=== PATIENT | male | born 1960 | race Caucasian/White ===

== ENCOUNTER 2019-05-21 18:11 | Emergency (ER) | payer OTHER ==
--- OUTSIDE RECORDS SUMMARY | 2019-05-21 18:14 | XMS REPORT ---
:1960 [facility] Address [address] [place] [address] Dr. Garcia [address] [place] [address] Care Team Providers Name Role Phone Unavailable Unavailable Unavailable Payers Payer Name Policy Type Policy Number Effective Date Expiration Date Problems This patient has no known problems. Allergies, Adverse Reactions, Alerts Allergy Allergy Status Severity Reaction(s) Onset Inactive Treating Comments Name Type Date Date Clinician dada COSBY Active MO 2019-01 00:00:0 0 Medications This patient has no known medications. Results Test Description Test Time Test Comments Text Results Atomic Results Result Comments GLUBED 2019-04-11 11:11:00 Test Item Value Reference Range Comments GLUBED (test code=GLUBED) 370 MG/DL 74-106 [id number] 05:57:00 Test Item Value Reference Range Comments GLUBED (test code=GLUBED) 289 MG/DL 74-106 COMPREHENSIVE METABOLIC [id number] 05:17:00 Test Item Value Reference Range Comments SODIUM (test code=NA) 131 mmol/L 137-145 POTASSIUM (test code=K) 4.1 mmol/L 3.4-5.0 CHLORIDE (test code=CL) 99 mmol/L 98-107 CARBON DIOXIDE (test 21 mmol/L 22-30 code=CO2) GLUCOSE (test code=GLU) 289 mg/dL 74-106 BLOOD UREA NITROGEN (test 11 mg/dL 9-20 code=BUN) GLOMERULAR FILTRATION RATE 124 >60 The estimated glomerular (test code=GFR) filtration rate is computed usingpatient race, age (>18), sex, and serum creatinine. If anyof the needed data elements are missing the Laboratory cannot compute an estimation of the glomerular filtration rate. CREATININE (test code=CREAT) 0.7 mg/dL 0.7-1.3 TOTAL PROTEIN (test 7.1 g/dL 6.3-8.2 code=PROT) ALBUMIN (test code=ALB) 4.1 g/dL 3.5-5.0 CALCIUM (test code=CA) 9.0 mg/dL 8.4-10.2 BILIRUBIN TOTAL (test 0.7 mg/dL 0.2-1.3 code=BILT) BILIRUBIN CONJUGATED (test 0 mg/dL 0-0.3 ~~~~~~~~~~~~~~~~~~~~~~~~~~~~~ code=BILCON) ~~~~~~~~~~~~~~~~~~~~~~~~~~~~~ ~~CONJUGATED BILIRUBIN IS THE REPLACEMENT ASSAY FOR DIRECTBILIRUBIN.~~~~~~~~~~~~~ ~~~~~~~~~~~~~~~~~~~~~~~~~~~~~ ~~~~~~~~~~~~~~~~~~ BILIRUBIN UNCONJUGATED (test 0.4 mg/dL 0-1.1 code=BILUNC) SGOT/AST (test code=AST) 88 U/L 15-46 SGPT/ALT (test code=ALT) 119 U/L 13-69 ALKALINE PHOSPHATASE (test 70 U/L 38-126 code=ALKP) [id number] 05:17:00 Test Item Value Reference Range Comments MAGNESIUM (test code=MAG) 1.4 mg/dL 1.6-2.3 COMPREHENSIVE METABOLIC [id number] 05:13:00 Test Item Value Reference Range Comments SODIUM (test code=NA) 131 mmol/L 137-145 POTASSIUM (test code=K) 4.1 mmol/L 3.4-5.0 CHLORIDE (test code=CL) 99 mmol/L 98-107 CARBON DIOXIDE (test 21 mmol/L 22-30 code=CO2) GLUCOSE (test code=GLU) 289 mg/dL 74-106 BLOOD UREA NITROGEN (test 11 mg/dL 9-20 code=BUN) GLOMERULAR FILTRATION RATE 124 >60 The estimated glomerular (test code=GFR) filtration rate is computed usingpatient race, age (>18), sex, and serum creatinine. If anyof the needed data elements are missing the Laboratory cannot compute an estimation of the glomerular filtration rate. CREATININE (test code=CREAT) 0.7 mg/dL 0.7-1.3 TOTAL PROTEIN (test 7.1 g/dL 6.3-8.2 code=PROT) ALBUMIN (test code=ALB) 4.1 g/dL 3.5-5.0 CALCIUM (test code=CA) 9.0 mg/dL 8.4-10.2 BILIRUBIN TOTAL (test 0.7 mg/dL 0.2-1.3 code=BILT) BILIRUBIN CONJUGATED (test 0 mg/dL 0-0.3 ~~~~~~~~~~~~~~~~~~~~~~~~~~~~~ code=BILCON) ~~~~~~~~~~~~~~~~~~~~~~~~~~~~~ ~~CONJUGATED BILIRUBIN IS THE REPLACEMENT ASSAY FOR DIRECTBILIRUBIN.~~~~~~~~~~~~~ ~~~~~~~~~~~~~~~~~~~~~~~~~~~~~ ~~~~~~~~~~~~~~~~~~ BILIRUBIN UNCONJUGATED (test 0.4 mg/dL 0-1.1 code=BILUNC) SGOT/AST (test code=AST) 88 U/L 15-46 SGPT/ALT (test code=ALT) 119 U/L 13-69 ALKALINE PHOSPHATASE (test 70 U/L 38-126 code=ALKP) [id number] 05:13:00 Test Item Value Reference Range Comments MAGNESIUM (test code=MAG) mg/dL 1.6-2.3 CBC W/AUTO [id number] 05:02:00 Test Item Value Reference Range Comments WHITE BLOOD CELL (test code=WBC) 5.5 x10 3/uL 5.0-12.0 RED BLOOD CELL (test code=RBC) 4.15 x10 6/uL 4.70-6.10 HEMOGLOBIN (test code=HGB) 12.9 g/dL 14.0-18.0 HEMATOCRIT (test code=HCT) 37.2 % 37.0-49.0 MEAN CELL VOLUME (test code=MCV) 90 fL 80-94 MEAN CELL HGB (test code=MCH) 31.1 pg 27-31 MEAN CELL HGB CONCENTRATION (test code=MCHC) 34.7 g/dL 33-37 RED CELL DISTRIBUTION WIDTH (test code=RDW) 12.9 % 11.5-15.5 PLATELET COUNT (test code=PLT) 192 x10 3/uL 130-400 MEAN PLATELET VOLUME (test code=MPV) 10.4 fL 9.4-16.4 NEUTROPHIL % (test code=NT%) 43.8 % 43-65 IMMATURE GRANULOCYTE % (test code=IG%) 0.4 % 0.0-2.0 LYMPHOCYTE % (test code=LY%) 42.3 % 20.5-45.5 MONOCYTE % (test code=MO%) 6.4 % 5.5-11.7 EOSINOPHIL % (test code=EO%) 6.0 % 0.9-2.9 BASOPHIL % (test code=BA%) 1.1 % 0.2-1.0 NUCLEATED RBC % (test code=NRBC%) 0.0 % 0-1.0 NEUTROPHIL # (test code=NT#) 2.41 x10 3/uL 2.2-4.8 IMMATURE GRANULOCYTE # (test code=IG#) 0.02 x10 3/uL 0-0.03 LYMPHOCYTE # (test code=LY#) 2.32 x10 3/uL 1.3-2.9 MONOCYTE # (test code=MO#) 0.35 x10 3/uL 0.3-0.8 EOSINOPHIL # (test code=EO#) 0.33 x10 3/uL 0.0-0.2 BASOPHIL # (test code=BA#) 0.06 x10 3/uL 0.0-0.1 [id number] 23:26:00 Test Item Value Reference Range Comments GLUBED (test code=GLUBED) 270 MG/DL 74-106 [id number] 18:08:00 Test Item Value Reference Range Comments GLUBED (test code=GLUBED) 391 MG/DL 74-106 [id number] 12:57:00 Test Item Value Reference Range Comments GLUBED (test code=GLUBED) 403 MG/DL Read Back to A VENOUS SPECIMEN SHOULD BE ORDERED FOR GLUCOSE VERIFICATION IF MEDICALLY NECESSARY. [id number] 11:31:00 Test Item Value Reference Range Comments GLUBED (test code=GLUBED) 332 MG/DL [id number] 06:51:00 Test Item Value Reference Range Comments GLUBED (test code=GLUBED) 350 MG/DL LIPID PROFILE (CORONARY RISK)2019-04-10 01:35:00 Test Item Value Reference Range Comments TRIGLYCERIDES (test > 1500 mg/dL TRIGLYCERIDES REFERENCE code=TRIG) RANGE:Normal: <150 mg/dLBorderline High: 150-199 mg/dLHigh: 200-499 mg/dLVery High: >=500 mg/dL CHOLESTEROL (test code=CHOL) 243 mg/dL CHOLESTEROL REFERENCE RANGE:DESIRABLE: < 200 mg/dLBORDERLINE: 200-239 mg/dLHIGH: >=240 mg/dL HDL CHOLESTEROL (test 20 mg/dL 40-59 code=HDL) LIPOPROTEIN LDL (test < 30.00 mg/dL 32-99 code=LDLC) CORONARY RISK FACTOR (test 12.15 code=RISK) CHOL/HDL RISK MALE: 1/2 AVG 3.43 FEMALE: 1/2 AVG 3.27 AVG 4.97 AVG 4.44 2X AVG 9.55 2X AVG 7.05 3X AVG 23.39 3X AVG 11.04~~~~~~~~~~~~~~~~~~~~~~ ~~~~~~~~~~~~~~~~~~~~~~~~~~~ ~~~~~~~~~~~National Cholesterol Education (NCEP) Guidelines:~~~~~~~~~~~~~~~~ ~~~~~~~~~~~~~~~~~~~~~~~~~~~ ~~~~~~~~~~~~~~~~~ HDL Cholesterol<40mg/dL: HDL Cholesterol (Major risk factor for CHD)>60mg/dL: HDL Cholesterol (Negative risk factor for CHD)40-59mg/dL: Borderline Risk LDL Cholesterol<100mg/dL: Desirable LDL-C rxqxeqmbtpnrw103-650qa/dL: Borderline High Risk LDL-C xnuijtqjqhcye281-591fv/dL: High risk LDL-C concentration HDL-LDL Cholesterol is affected by a number of factors suchas smoking, age and sex.~~~~~~~~~~~~~~~~~~~~~~~ ~~~~~~~~~~~~~~~~~~~~~~~~~~~ ~~~~~~~~~~ LIPID PROFILE (CORONARY RISK)2019-04-10 01:22:00 Test Item Value Reference Range Comments TRIGLYCERIDES (test code=TRIG) mg/dL CHOLESTEROL (test code=CHOL) 243 mg/dL CHOLESTEROL REFERENCE RANGE:DESIRABLE: < 200 mg/dLBORDERLINE: 200-239 mg/dLHIGH: >=240 mg/dL HDL CHOLESTEROL (test 20 mg/dL 40-59 code=HDL) LIPOPROTEIN LDL (test mg/dL 32-99 code=LDLC) CORONARY RISK FACTOR (test 12.15 code=RISK) CHOL/HDL RISK MALE: 1/2 AVG 3.43 FEMALE: 1/2 AVG 3.27 AVG 4.97 AVG 4.44 2X AVG 9.55 2X AVG 7.05 3X AVG 23.39 3X AVG 11.04~~~~~~~~~~~~~~~~~~~~~~~~ ~~~~~~~~~~~~~~~~~~~~~~~~~~~~~ ~~~~~~~National Cholesterol Education (NCEP) Guidelines:~~~~~~~~~~~~~~~~~~ ~~~~~~~~~~~~~~~~~~~~~~~~~~~~~ ~~~~~~~~~~~~~ HDL Cholesterol<40mg/dL: HDL Cholesterol (Major risk factor for CHD)>60mg/dL: HDL Cholesterol (Negative risk factor for CHD)40-59mg/dL: Borderline Risk LDL Cholesterol<100mg/dL: Desirable LDL-C yumsgrcgxspwy542-238xb/dL: Borderline High Risk LDL-C nvvdzvkbporov288-335ia/dL: High risk LDL-C concentration HDL-LDL Cholesterol is affected by a number of factors suchas smoking, age and sex.~~~~~~~~~~~~~~~~~~~~~~~~~ ~~~~~~~~~~~~~~~~~~~~~~~~~~~~~ ~~~~~~ HGBA1C - GLYCOSYLATED [id number] 00:29:00 Test Item Value Reference Range Comments GLYCOSYLATED HEMOGLOBIN 10.3 % 0-5.9 Current guidelines recommend a (HA1C) (test code=GLYHGB) treatment goal of <7% fordiabetic patients. A1c may be overestimated in diabeticpatients exhibiting poor control and who are alsoheterozygous or homozygous for HgbS or HgbC. Totalglycohemoglobin is a better indicator of diabetic control inpatients with these hemoglobin variants. - CT HEAD/BRAIN W/O [id number] 23:39:00 FAX: Irais Alcantara [phone] [place]: St: REG Name: CORNEJO,PAUL [facility] [place] : 1960 Age/S: 58/M [address] Unit: [id number] Loc: [place] [address] Phys: Irais River COOK JELLY Acct: [id number] Dis Date: Status: REG ER PHONE #: [phone] Exam Date: 04/09/2019 2328 FAX #: [phone] Reason: headache, htn EXAMS: CPT CODE : [id number] CT HEAD/BRAIN W/O CONT 82860 Examination: Noncontrast head CT Indication: Headache Comparison: None Location: R16 Technique: Multiple CTimages of the brain were obtained from the skull base to the vertex. No intravenous contrast was administered. One or more of the following dose reduction techniques were used: Automated exposure control , adjustment of the mA and/or kV according to patient size, and/or utilization of iterative reconstruction technique. Findings : There is prominence of the ventricles and sulci consistent with mild supratentorial cerebral volume loss. The basilar cisterns are patent. There is no intracranial hemorrhage or mass effect. No intra-axial or extra-axial fluid collections are seen. There isdiffuse periventricular and subcortical white matter hypodensities which are nonspecific, but likely the sequelae of chronic microvascular ischemia. This appearance makes evaluation for underlying acute infarct difficult The visualized paranasal sinuses and mastoid air cells are clear. Impression: 1. No acute intracranial hemorrhage or significant mass effect 2. Additional findings as above at 2339 Reported and signed by: Elaine Hatch MD PAGE 1 Signed Report (CONTINUED) FAX: Irais Alcantara [phone] [place]: St: REG Name: HOPE CORNEJO [facility] : 1960 Age/S: 58/M [address] Unit: [id number] Loc: [place] [address] Phys: Irais River COOK JELLY Acct: [id number] Dis Date: Status: REG ER PHONE #: [phone] Exam Date: 04/09/2019 2328 FAX #: [phone] Reason: headache, htn EXAMS: CPT CODE: [id number] CT HEAD/BRAIN W/O CONT 88041 <Continued> CC: Irais River NP Technologist: Nadeem Theodore Trnscrd Dt/Tm: 04/09/2019 (4035) [email or web address] Orig Print D/T: S: 04/09/2019 (9142 PAGE 2 Signed ReportCOMPREHENSIVE METABOLIC [id number] 23:25:00 Test Item Value Reference Range Comments SODIUM (test code=NA) 129 mmol/L 137-145 POTASSIUM (test code=K) 4.4 mmol/L 3.4-5.0 CHLORIDE (test code=CL) 97 mmol/L 98-107 CARBON DIOXIDE (test 20 mmol/L 22-30 code=CO2) GLUCOSE (test code=GLU) 563 mg/dL 74-106 Critical Value reported toFirst Name:[id number] Last Name:RESULTS READ BACK AND VERIFIEDby C.LAB.MG, on 04/09/19, @ 2324. OK TO REPORT BLOOD UREA NITROGEN (test 16 mg/dL 9-20 code=BUN) GLOMERULAR FILTRATION RATE 92 >60 The estimated glomerular (test code=GFR) filtration rate is computed usingpatient race, age (>18), sex, and serum creatinine. If anyof the needed data elements are missing the Laboratory cannot compute an estimation of the glomerular filtration rate. CREATININE (test code=CREAT) 0.9 mg/dL 0.7-1.3 TOTAL PROTEIN (test 7.8 g/dL 6.3-8.2 code=PROT) ALBUMIN (test code=ALB) 4.4 g/dL 3.5-5.0 CALCIUM (test code=CA) 8.9 mg/dL 8.4-10.2 BILIRUBIN TOTAL (test 0.8 mg/dL 0.2-1.3 code=BILT) BILIRUBIN CONJUGATED (test 0 mg/dL 0-0.3 ~~~~~~~~~~~~~~~~~~~~~~~~~~~~~ code=BILCON) ~~~~~~~~~~~~~~~~~~~~~~~~~~~~~ ~~CONJUGATED BILIRUBIN IS THE REPLACEMENT ASSAY FOR DIRECTBILIRUBIN.~~~~~~~~~~~~~ ~~~~~~~~~~~~~~~~~~~~~~~~~~~~~ ~~~~~~~~~~~~~~~~~~ BILIRUBIN UNCONJUGATED (test 0.4 mg/dL 0-1.1 code=BILUNC) SGOT/AST (test code=AST) 94 U/L 15-46 SGPT/ALT (test code=ALT) 117 U/L 13-69 ALKALINE PHOSPHATASE (test 81 U/L 38-126 code=ALKP) CBC W/AUTO [id number] 23:16:00 Test Item Value Reference Range Comments WHITE BLOOD CELL (test code=WBC) 6.5 x10 3/uL 5.0-12.0 RED BLOOD CELL (test code=RBC) 4.25 x10 6/uL 4.70-6.10 HEMOGLOBIN (test code=HGB) 14.0 g/dL 14.0-18.0 HEMATOCRIT (test code=HCT) 37.4 % 37.0-49.0 MEAN CELL VOLUME (test code=MCV) 88 fL 80-94 MEAN CELL HGB (test code=MCH) 32.9 pg 27-31 MEAN CELL HGB CONCENTRATION (test code=MCHC) 37.4 g/dL 33-37 RED CELL DISTRIBUTION WIDTH (test code=RDW) 12.6 % 11.5-15.5 PLATELET COUNT (test code=PLT) 212 x10 3/uL 130-400 MEAN PLATELET VOLUME (test code=MPV) 10.0 fL 9.4-16.4 NEUTROPHIL % (test code=NT%) 57.5 % 43-65 IMMATURE GRANULOCYTE % (test code=IG%) 0.2 % 0.0-2.0 LYMPHOCYTE % (test code=LY%) 31.2 % 20.5-45.5 MONOCYTE % (test code=MO%) 6.2 % 5.5-11.7 EOSINOPHIL % (test code=EO%) 4.0 % 0.9-2.9 BASOPHIL % (test code=BA%) 0.9 % 0.2-1.0 NUCLEATED RBC % (test code=NRBC%) 0.0 % 0-1.0 NEUTROPHIL # (test code=NT#) 3.72 x10 3/uL 2.2-4.8 IMMATURE GRANULOCYTE # (test code=IG#) 0.01 x10 3/uL 0-0.03 LYMPHOCYTE # (test code=LY#) 2.02 x10 3/uL 1.3-2.9 MONOCYTE # (test code=MO#) 0.40 x10 3/uL 0.3-0.8 EOSINOPHIL # (test code=EO#) 0.26 x10 3/uL 0.0-0.2 BASOPHIL # (test code=BA#) 0.06 x10 3/uL 0.0-0.1 - XR CHEST 1 [id number] 23:12:00 FAX: Irais Alcantara [place]: St: [facility] [place] [facility] 1960 Age/S: 58/M [address] Unit#: [id number] Loc: [place] [address] Phys: Irais River COOK JELLY Acct: [id number] Dis Date: Status: REG ER PHONE #: [phone] Exam Date: 04/09/2019 6991 FAX #: [phone] Reason: elevated bp EXAMS: CPT CODE: [id number] XR CHEST 1 V 83685 Examination: One view chest x-ray Location code: H60 Comparison: None Discussion: Clinical history is remarkable for elevated blood pressure. Heart is normal in size. Lungs are clear of consolidatinginfiltrates. No masses, nodules or effusions identified. Impression: 1. Normal one view chest x- ray. at 2312 * * Reported and signed by: Marc Kebede MD CC: Irais River NP Technologist: LAWSON BORJAS Date/Time/By: 04/09/2019 (329) : By: CarrieVR5 PAGE 1 Signed Report FAX: Irais Alcantara [phone] [place]: St: REG Name: HOPE CORNEJO [facility] : 1960 Age/ S: 58/M [address] Unit #: [id number] Loc: [place] [address] Phys: Irais River NP Acct: [id number] Dis Date: Status: REG ER PHONE #: [phone] Exam Date: 04/09/20192254 FAX #: [phone] Reason: elevatedbp EXAMS: CPT CODE: [id number] XR CHEST 1 V 73640 <Continued> Orig Print D/T: S: (1638)PAGE 2 Signed ReportCBC W/AUTO [id number] 23:07:00 Test Item Value Reference Range Comments WHITE BLOOD CELL (test code=WBC) 6.5 x10 3/uL 5.0-12.0 RED BLOOD CELL (test code=RBC) 4.25 x10 6/uL 4.70-6.10 HEMOGLOBIN (test code=HGB) 14.0 g/dL 14.0-18.0 HEMATOCRIT (test code=HCT) 37.4 % 37.0-49.0 MEAN CELL VOLUME (test code=MCV) 88 fL 80-94 MEAN CELL HGB (test code=MCH) 32.9 pg 27-31 MEAN CELL HGB CONCENTRATION (test code=MCHC) g/dL 33-37 RED CELL DISTRIBUTION WIDTH (test code=RDW) 12.6 % 11.5-15.5 PLATELET COUNT (test code=PLT) 212 x10 3/uL 130-400 MEAN PLATELET VOLUME (test code=MPV) 10.0 fL 9.4-16.4 NEUTROPHIL % (test code=NT%) 57.5 % 43-65 IMMATURE GRANULOCYTE % (test code=IG%) 0.2 % 0.0-2.0 LYMPHOCYTE % (test code=LY%) 31.2 % 20.5-45.5 MONOCYTE % (test code=MO%) 6.2 % 5.5-11.7 EOSINOPHIL % (test code=EO%) 4.0 % 0.9-2.9 BASOPHIL % (test code=BA%) 0.9 % 0.2-1.0 NUCLEATED RBC % (test code=NRBC%) 0.0 % 0-1.0 NEUTROPHIL # (test code=NT#) 3.72 x10 3/uL 2.2-4.8 IMMATURE GRANULOCYTE # (test code=IG#) 0.01 x10 3/uL 0-0.03 LYMPHOCYTE # (test code=LY#) 2.02 x10 3/uL 1.3-2.9 MONOCYTE # (test code=MO#) 0.40 x10 3/uL 0.3-0.8 EOSINOPHIL # (test code=EO#) 0.26 x10 3/uL 0.0-0.2 BASOPHIL # (test code=BA#) 0.06 x10 3/uL 0.0-0.1 TROPONIN I [id number] 23:05:00 Test Item Value Reference Range Comments TROPONIN I RAPID (test 0.00 ng/mL 0.00-0.079 ISTAT TROPONIN I code=TROPIRAP) CRITERIA0.00-0.08 ng/mL - Negative>0.08 ng/mL - Positive The use of serial sampling and testing protocol is arecommended practice.An elevated troponin level alone is often not sufficient fordiagnosis of myocardial infarction. Troponin results obtained by different assays may vary.Evaluation of the extent of myocardial damage based onincrease of troponin would be valid only if similarmethodology is used.
--- NOTE | 2019-05-21 18:32 | EDPHYS ---
Physician Documentation [facility] Name: Gabriel Walker Age: 58 yrs Sex: Male : 1960 Arrival Date: 05/21/2019 Time: 18:13 Bed 6 Private MD: ED Physician Jann De La Garza HPI: 05/20 18:30 This 58 yrs old Male presents to ER via Ambulatory with complaints of kb Toothache. 18:30 The patient presents with pain, redness, swelling. The problem is located in the upper kb left cuspid (#11) and upper left lateral incisor (#10) and upper left central incisor (#9). Onset: The symptoms/episode began/occurred 1 week(s) ago. Duration: The symptoms are continuous. Modifying factors: The symptoms are alleviated by nothing, the symptoms are aggravated by nothing. Associated signs and symptoms: Pertinent positives: pain, redness in area, swelling, Pertinent negatives: fever, inability to eat. Severity of symptoms: At their worst the symptoms were moderate, severe, in the emergency department the symptoms are unchanged. The patient has not experienced similar symptoms in the past. The patient has not recently seen a physician. Pt reports toothache for a week that has been getting worse. States he called around to dentists and the earliest he could get in was 06/10/19. States the pain is keeping him up at night. Historical: - Allergies: 18:19 No Known Allergies; ll1 - PMHx: 18:19 Diabetes - IDDM; Hypertension; ll1 - PSHx: 18:19 laminectomy, spinal fusion; ll1 - Immunization history:: Flu vaccine is not up to date. - Social history:: Smoking status: Patient reports the use of cigarette tobacco products, smokes one pack cigarettes per day. Patient uses street drugs, marijuana, Patient/guardian denies using IV drugs. ROS: 18:29 Constitutional: Negative for fever, chills, and weight loss, Neck: Negative for injury, kb pain, and swelling, Cardiovascular: Negative for chest pain, palpitations, and edema, Respiratory: Negative for shortness of breath, cough, wheezing, and pleuritic chest pain, Abdomen/GI: Negative for abdominal pain, nausea, vomiting, diarrhea, and constipation, Back: Negative for injury and pain, MS/Extremity: Negative for injury and deformity, Skin: Negative for injury, rash, and discoloration, Neuro: Negative for headache, weakness, numbness, tingling, and seizure. 18:29 ENT: Positive for dental pain. Exam: 18:29 Constitutional: This is a well developed, well nourished patient who is awake, alert, kb and in no acute distress. Head/Face: Normocephalic, atraumatic. Neck: Trachea midline, no thyromegaly or masses palpated, and no cervical lymphadenopathy. Supple, full range of motion without nuchal rigidity, or vertebral point tenderness. No Meningismus. Chest/axilla: Normal chest wall appearance and motion. Nontender with no deformity. No lesions are appreciated. Cardiovascular: Regular rate and rhythm with a normal S1 and S2. No gallops, murmurs, or rubs. Normal PMI, no JVD. No pulse deficits. Respiratory: Lungs have equal breath sounds bilaterally, clear to auscultation and percussion. No rales, rhonchi or wheezes noted. No increased work of breathing, no retractions or nasal flaring. Abdomen/GI: Soft, non-tender, with normal bowel sounds. No distension or tympany. No guarding or rebound. No evidence of tenderness throughout. Skin: Warm, dry with normal turgor. Normal color with no rashes, no lesions, and no evidence of cellulitis. MS/ Extremity: Pulses equal, no cyanosis. Neurovascular intact. Full, normal range of motion. Neuro: Awake and alert, GCS 15, oriented to person, place, time, and situation. Cranial nerves II-XII grossly intact. Motor strength 5/5 in all extremities. Sensory grossly intact. Cerebellar exam normal. Normal gait. 18:29 ENT: Dental exam: abscess, that is moderate, specifically in the upper left lateral incisor (#10), dental caries, that is moderate, diffusely, gum swelling, pain, that is moderate, that is severe, specifically in the upper left central incisor (#9), upper left lateral incisor (#10) and upper left cuspid (#11). Vital Signs: 18:16 BP 151 / 97; Pulse 108; Resp 18; Temp 98.9; Pulse Ox 97% ; Pain 10/10; ll1 MDM: 18:21 Patient medically screened. [facility] 18:30 Data reviewed: vital signs, nurses notes. Data interpreted: Pulse oximetry: on room air kb is 97 %. Interpretation: normal. Counseling: I had a detailed discussion with the patient and/or guardian regarding: the historical points, exam findings, and any diagnostic results supporting the discharge/admit diagnosis, the need for outpatient follow up, a dentist, to return to the emergency department if symptoms worsen or persist or if there are any questions or concerns that arise at home. Administered Medications: 18:44 Drug: TORadol 30 mg Route: IM; Site: left deltoid; hb 18:44 Drug: Hearne 10 mg-325 mg 1 tabs Route: PO; hb 18:44 Drug: Clindamycin 300 mg Route: IM; Site: left deltoid; hb 18:44 Drug: Clindamycin 300 mg Route: IM; Site: right deltoid; hb Disposition: 05/21 07:43 Co-signature as Attending Physician, Jann De La Garza MD I agree with the assessment and [facility] plan of care. Disposition: 05/21/19 18:32 Discharged to Home. Impression: Periapical abscess without sinus. - Condition is Stable. - Discharge Instructions: Dental Pain, Pgss-uf-Yfkh, Dental Abscess, Flbf-dk-Udfc. - Prescriptions for Clindamycin HCl 300 mg Oral Capsule - take 1 capsule by ORAL route every 6 hours for 10 days; 40 capsule. Diclofenac Sodium 75 mg Oral Tablet, Delayed Release (E.C.) - take 1 tablet by ORAL route 2 times per day As needed; 30 tablet. - Medication Reconciliation Form, Thank You Letter, Antibiotic Education, Prescription Opioid Use form. - Follow up: Emergency Department; When: As needed; Reason: Worsening of condition. Follow up: Private Physician; When: 2 - 3 days; Reason: Recheck today's complaints, Continuance of care, Re-evaluation by your physician. Signatures: Domonique Singh, YAS-C ELECTRICAL REPAIRER-Jann Ochoa MD MD cha [place], Heather, RN RN hb Lewis, Lynsay, RN RN ll1 Corrections: (The following items were deleted from the chart) 05/20 19:08 18:32 05/21/2019 18:32 Discharged to Home. Impression: Periapical abscess without hb sinus. Condition is Stable. Forms are Medication Reconciliation Form, Thank You Letter, Antibiotic Education, Prescription Opioid Use. Follow up: Emergency Department; When: As needed; Reason: Worsening of condition. Follow up: Private Physician; When: 2 - 3 days; Reason: Recheck today's complaints, Continuance of care, Re-evaluation by your physician. kb
--- NOTE | 2019-05-21 18:32 | ER ---
Nurse's Notes [facility] Name: Gabriel Walker Age: 58 yrs Sex: Male : 1960 Arrival Date: 05/21/2019 Time: 18:13 Bed 6 Private MD: Diagnosis: Periapical abscess without sinus Presentation: 05/20 18:16 Chief complaint: Patient states: States upper jaw/tooth pain for 1 week. No known ll1 fever. No cough/congestion. Coronavirus screen: Proceed with normal triage. Patient denies a cough. Patient denies shortness of breath or difficulty breathing. Patient denies measured and/or subjective temperature greater than 100.4F prior to today's visit. Patient denies travel on a cruise ship or to a country the [facility] currently lists as an affected area. Patient denies contact with known and/or suspected case of COVID-19. Ebola Screen: Patient denies travel to an Ebola-affected area in the 21 days before illness onset. Initial Sepsis Screen: Does the patient meet any 2 criteria? HR > 90 bpm. Risk Assessment: Do you want to hurt yourself or someone else? Patient reports no desire to harm self or others. 18:16 Method Of Arrival: Ambulatory ll1 18:16 Acuity: PARVIN 4 ll1 18:24 Initial Sepsis Screen: Does the patient have a suspected source of infection? No. sv Patient's initial sepsis screen is negative. Onset of symptoms was May 2019. Historical: - Allergies: 18:19 No Known Allergies; ll1 - PMHx: 18:19 Diabetes - IDDM; Hypertension; ll1 - PSHx: 18:19 laminectomy, spinal fusion; ll1 - Immunization history:: Flu vaccine is not up to date. - Social history:: Smoking status: Patient reports the use of cigarette tobacco products, smokes one pack cigarettes per day. Patient uses street drugs, marijuana, Patient/guardian denies using IV drugs. Screenin:23 Abuse screen: Denies threats or abuse. Denies injuries from another. Nutritional sv screening: No deficits noted. Tuberculosis screening: No symptoms or risk factors identified. Fall Risk None identified. Assessment: 18:25 General: Appears in no apparent distress. uncomfortable, well developed, Behavior is sv calm, cooperative, appropriate for age. Pain: Complains of pain in mouth and teeth Pain currently is 10 out of 10 on a pain scale. Pain began a week. Neuro: Level of Consciousness is awake, alert, obeys commands, Oriented to person, place, time, situation, Moves all extremities. Full function Gait is steady. Respiratory: Respiratory effort is even, unlabored, Respiratory pattern is regular, symmetrical. EENT: Reports pain. Derm: Skin is pink, warm \T\ dry. Vital Signs: 18:16 BP 151 / 97; Pulse 108; Resp 18; Temp 98.9; Pulse Ox 97% ; Pain 10/10; ll1 ED Course: 18:13 Patient arrived in ED. mr 18:14 [facility]C [facility] kb 18:14 Jann De La Garza MD is Attending Physician. kb 18:18 Triage completed. ll1 18:20 Arm band placed on Patient placed in an exam room, on a stretcher. ll1 18:23 Zaina Singleton RN is Primary Nurse. sv 18:23 Patient has correct armband on for positive identification. Bed in low position. Call sv light in reach. Door closed. Head of bed elevated. 18:39 No provider procedures requiring assistance completed. Patient did not have IV access sv during this emergency room visit. 19:04 Primary Nurse role handed off by Zaina Singleton RN sv 19:06 Oralia Taylor, SUZANNA is Primary Nurse. hb Administered Medications: 18:44 Drug: TORadol 30 mg Route: IM; Site: left deltoid; hb 18:44 Drug: [place] 10 mg-325 mg 1 tabs Route: PO; hb 18:44 Drug: Clindamycin 300 mg Route: IM; Site: left deltoid; hb 18:44 Drug: Clindamycin 300 mg Route: IM; Site: right deltoid; hb Outcome: 18:32 Discharge ordered by . kb 19:06 Discharged to home ambulatory. hb 19:06 Condition: stable 19:06 Discharge instructions given to patient, Instructed on discharge instructions, follow up and referral plans. medication usage, Demonstrated understanding of instructions, follow-up care, medications, Prescriptions given X 2. 19:08 Patient left the ED. hb Signatures: Domonique Singh FNP-C LEAD HANDLER-Zaina Chambers RN RN Bettie Abel mr Oralia Taylor RN RN hb Lewis, Lynsay, RN RN ll1
[2019-05-21] MEDS ORDERED: HYDROCODONE/APAP 10/325 TAB ONE (18:42)
[2019-05-21] MEDS ORDERED: CLINDAMYCIN IV 150 MG/ML (4 mL) VIAL ONE (18:43)
[2019-05-21] MEDS ORDERED: KETOROLAC 30 MG/ML INJ ONE (18:43)
[2019-05-21 19:15] VITALS: BP 151/97; TEMP 98.9; O2SAT 97
== END 2019-05-21 19:08 | disposition home or self-care (01) ==
LOC: ER 18:11
DX: K04.7 Periapical abscess without sinus (principal); F17.210 Nicotine dependence, cigarettes, uncomplicated; I10 Essential (primary) hypertension
CPT/HCPCS: 96372; 99283; S0077

== ENCOUNTER 2019-05-23 | Emergency (ER) | payer OTHER | END 2019-05-23 23:57 | disposition home or self-care (01) | PROC: 0C9WXZ0 Drainage of Upper Tooth, External Approach, Single (ICD-10-PCS; principal; 2019-05-23) | CPT/HCPCS: 96361; 85025; 36415; 82010; 82947 ×2; 80053; 96375; 96374; 99284; 41800; J7030; J2405 ==

== ENCOUNTER 2019-05-28 06:55 | Emergency (ER) | payer OTHER ==
--- OUTSIDE RECORDS SUMMARY | 2019-05-28 06:59 | XMS REPORT ---
:1960 Author Organization [facility] t Address [address] [place] [address] Care Team Providers Name Role Phone Unavailable Unavailable Unavailable Payers Payer Name Policy Type Policy Number Effective Date Expiration D ate Problems This patient has no known problems. Allergies, Adverse Reactions, Alerts Allergy Allergy Status Severity Reaction(s) Onset Inactive Treating C omments Name Type Date Date Clinician dada COSBY Active MO 2019-01 00:00:0 0 Medications This patient has no known medications. Results Test Description Test Time Test Comments Text Results Atomic Results Result Comments GLUBED 2019-04-11 11:11:00 Test Item Value Reference Range Comments GLUBED (test code = GLUBED) 370 MG/DL 74-106 [id number] 05:57:00 Test Item Value Reference Range Comments GLUBED (test code = GLUBED) 289 MG/DL 74-106 COMPREHENSIVE METABOLIC [id number] 05:17:00 Test Item Value Reference Range Comments SODIUM (test code = NA) 131 mmol/L 137-145 POTASSIUM (test code = K) 4.1 mmol/L 3.4-5.0 CHLORIDE (test code = CL) 99 mmol/L 98-107 CARBON DIOXIDE (test code = 21 mmol/L 22-30 CO2) GLUCOSE (test code = GLU) 289 mg/dL 74-106 BLOOD UREA NITROGEN (test 11 mg/dL 9-20 code = BUN) GLOMERULAR FILTRATION RATE 124 >60 The e stimated glomerular (test code = GFR) filtration rat e is computed usingpatient rac e, age (>18), sex, and serum c reatinine. If anyof the needed data elements are mis sing the Laboratory canno t compute an estimation of th e glomerular filtration rate. CREATININE (test code = 0.7 mg/dL 0.7-1.3 CREAT) TOTAL PROTEIN (test code = 7.1 g/dL 6.3-8.2 PROT) ALBUMIN (test code = ALB) 4.1 g/dL 3.5-5.0 CALCIUM (test code = CA) 9.0 mg/dL 8.4-10.2 BILIRUBIN TOTAL (test code = 0.7 mg/dL 0.2-1.3 BILT) BILIRUBIN CONJUGATED (test 0 mg/dL 0-0.3 ~~~~~ ~~~~~~~~~~~~~~~~~~~~~~~~ code = BILCON) ~~~~~~~~~~~~~~~~ ~~~~~~~~~~~~~ ~~CONJUGATED LETTY IRUBIN IS THE REPLACEMENT ASSA Y FOR DIRECTBILIRUBIN. ~~~~~~~~~~~~~ ~~~~~~~~~~~~~~~~ ~~~~~~~~~~~~~ ~~~~~~~~~~~~~~~~ ~~ BILIRUBIN UNCONJUGATED (test 0.4 mg/dL 0-1.1 code = BILUNC) SGOT/AST (test code = AST) 88 U/L 15-46 SGPT/ALT (test code = ALT) 119 U/L 13-69 ALKALINE PHOSPHATASE (test 70 U/L 38-126 code = ALKP) [id number] 05:17:00 Test Item Value Reference Range Comments MAGNESIUM (test code = MAG) 1.4 mg/dL 1.6-2.3 COMPREHENSIVE METABOLIC [id number] 05:13:00 Test Item Value Reference Range Comments SODIUM (test code = NA) 131 mmol/L 137-145 POTASSIUM (test code = K) 4.1 mmol/L 3.4-5.0 CHLORIDE (test code = CL) 99 mmol/L 98-107 CARBON DIOXIDE (test code = 21 mmol/L 22-30 CO2) GLUCOSE (test code = GLU) 289 mg/dL 74-106 BLOOD UREA NITROGEN (test 11 mg/dL 9-20 code = BUN) GLOMERULAR FILTRATION RATE 124 >60 The e stimated glomerular (test code = GFR) filtration rat e is computed usingpatient rac e, age (>18), sex, and serum c reatinine. If anyof the needed data elements are mis sing the Laboratory canno t compute an estimation of th e glomerular filtration rate. CREATININE (test code = 0.7 mg/dL 0.7-1.3 CREAT) TOTAL PROTEIN (test code = 7.1 g/dL 6.3-8.2 PROT) ALBUMIN (test code = ALB) 4.1 g/dL 3.5-5.0 CALCIUM (test code = CA) 9.0 mg/dL 8.4-10.2 BILIRUBIN TOTAL (test code = 0.7 mg/dL 0.2-1.3 BILT) BILIRUBIN CONJUGATED (test 0 mg/dL 0-0.3 ~~~~~ ~~~~~~~~~~~~~~~~~~~~~~~~ code = BILCON) ~~~~~~~~~~~~~~~~ ~~~~~~~~~~~~~ ~~CONJUGATED LETTY IRUBIN IS THE REPLACEMENT ASSA Y FOR DIRECTBILIRUBIN. ~~~~~~~~~~~~~ ~~~~~~~~~~~~~~~~ ~~~~~~~~~~~~~ ~~~~~~~~~~~~~~~~ ~~ BILIRUBIN UNCONJUGATED (test 0.4 mg/dL 0-1.1 code = BILUNC) SGOT/AST (test code = AST) 88 U/L 15-46 SGPT/ALT (test code = ALT) 119 U/L 13-69 ALKALINE PHOSPHATASE (test 70 U/L 38-126 code = ALKP) [id number] 05:13:00 Test Item Value Reference Range Comments MAGNESIUM (test code = MAG) mg/dL 1.6-2.3 CBC W/AUTO [id number] 05:02:00 Test Item Value Reference Range Comments WHITE BLOOD CELL (test code = WBC) 5.5 x10 3/uL 5.0-12.0 RED BLOOD CELL (test code = RBC) 4.15 x10 6/uL 4.70-6.10 HEMOGLOBIN (test code = HGB) 12.9 g/dL 14.0-18.0 HEMATOCRIT (test code = HCT) 37.2 % 37.0-49.0 MEAN CELL VOLUME (test code = MCV) 90 fL 80-94 MEAN CELL HGB (test code = MCH) 31.1 pg 27-31 MEAN CELL HGB CONCENTRATION (test code = MCHC) 34.7 g/dL 3 3-37 RED CELL DISTRIBUTION WIDTH (test code = RDW) 12.9 % 11 .5-15.5 PLATELET COUNT (test code = PLT) 192 x10 3/uL 130-400 MEAN PLATELET VOLUME (test code = MPV) 10.4 fL 9.4-16.4 NEUTROPHIL % (test code = NT%) 43.8 % 43-65 IMMATURE GRANULOCYTE % (test code = IG%) 0.4 % 0.0-2.0 LYMPHOCYTE % (test code = LY%) 42.3 % 20.5-45.5 MONOCYTE % (test code = MO%) 6.4 % 5.5-11.7 EOSINOPHIL % (test code = EO%) 6.0 % 0.9-2.9 BASOPHIL % (test code = BA%) 1.1 % 0.2-1.0 NUCLEATED RBC % (test code = NRBC%) 0.0 % 0-1.0 NEUTROPHIL # (test code = NT#) 2.41 x10 3/uL 2.2-4.8 IMMATURE GRANULOCYTE # (test code = IG#) 0.02 x10 3/uL 0-0.03 LYMPHOCYTE # (test code = LY#) 2.32 x10 3/uL 1.3-2.9 MONOCYTE # (test code = MO#) 0.35 x10 3/uL 0.3-0.8 EOSINOPHIL # (test code = EO#) 0.33 x10 3/uL 0.0-0.2 BASOPHIL # (test code = BA#) 0.06 x10 3/uL 0.0-0.1 [id number] 23:26:00 Test Item Value Reference Range Comments GLUBED (test code = GLUBED) 270 MG/DL 74-106 [id number] 18:08:00 Test Item Value Reference Range Comments GLUBED (test code = GLUBED) 391 MG/DL 74-106 [id number] 12:57:00 Test Item Value Reference Range Comments GLUBED (test code = GLUBED) 403 MG/DL 74-106 Read Back to A VENOUS SPECIMEN SHOULD BE ORDERED FOR GLUCOSE VERIFICA TION IF MEDICALLY NECESSARY. [id number] 11:31:00 Test Item Value Reference Range Comments GLUBED (test code = GLUBED) 332 MG/DL 74-106 [id number] 06:51:00 Test Item Value Reference Range Comments GLUBED (test code = GLUBED) 350 MG/DL 74-106 LIPID PROFILE (CORONARY RISK)2019-04-10 01:35:00 Test Item Value Reference Range Comments TRIGLYCERIDES (test code = > 1500 mg/dL TRIGL YCERIDES REFERENCE TRIG) RANGE:Normal: <1 50 mg/dLBorderline High: 150-199 mg/dLHig h: 200-499 mg/dLVery High: >=500 mg/dL CHOLESTEROL (test code = 243 mg/dL CHOLEST SARAH REFERENCE CHOL) RANGE:DESIRABLE: < 200 mg/dLBORDERLINE: 200-239 mg/dLHIGH: >=240 mg/dL HDL CHOLESTEROL (test code = 20 mg/dL 40-59 HDL) LIPOPROTEIN LDL (test code = < 30.00 mg/dL 32-99 LDLC) CORONARY RISK FACTOR (test 01.28 code = RISK) CHOL/HDL RISK M SARMAD: 1/2 AVG 3.43 FEM SARMAD: 1/2 AVG 3.27 AVG 4.97 AVG 4.44 2X AVG 9.55 2X A VG 7.05 3X AVG 23.39 3X AVG 11.04~~~~~~~~~~~ ~~~~~~~~~~~ ~~~~~~~~~~~~~~~~ ~~~~~~~~~~~ ~~~~~~~~~~~Natio nal Cholesterol Educ ation (NCEP) Guidelines:~~~~~ ~~~~~~~~~~~ ~~~~~~~~~~~~~~~~ ~~~~~~~~~~~ ~~~~~~~~~~~~~~~~ ~ HDL Cholesterol<40 mg/dL: HDL Cholesterol (Mateus or risk factor for CHD)> 60mg/dL: HDL Cholesterol (Negative risk factor for CHD)40-59mg/dL: Borderline Risk LDL Cholesterol<10 0mg/dL: Desirable LDL-C eytwiganqfxrk318 -159mg/dL: Borderline High Risk LDL-C saxrsmlfzsrdp796 -189mg/dL: High risk LDL-C concentration HD L-LDL Cholesterol is a ffected by a number of fact ors suchas smoking, age and sex.~~~~~~~~~~~~ ~~~~~~~~~~~ ~~~~~~~~~~~~~~~~ ~~~~~~~~~~~ ~~~~~~~~~~ LIPID PROFILE (CORONARY RISK)2019-04-10 01:22:00 Test Item Value Reference Range Comments TRIGLYCERIDES (test code = mg/dL TRIG) CHOLESTEROL (test code = CHOL) 243 mg/dL C HOLESTEROL REFERENCE RANGE:DESIRABLE: < 200 mg/dLBORDERLINE: 200-239 mg/dLHIGH: >=240 mg/dL HDL CHOLESTEROL (test code = 20 mg/dL 40-59 HDL) LIPOPROTEIN LDL (test code = mg/dL 32-99 LDLC) CORONARY RISK FACTOR (test 12.15 code = RISK) CHOL/HDL RISK M SARMAD: 1/2 AVG 3.43 FEMALE: 1/2 AVG 3.27 AVG 4.97 AVG 4.44 2X AVG 9.55 2X AVG 7.05 3X AVG 23.39 3X AVG 11.04~~~~~~~~~~~ ~~~~~~~~~~~~~ ~~~~~~~~~~~~~~~~ ~~~~~~~~~~~~~ ~~~~~~~National Cholesterol Education (NCEP) Guidelines:~~~~~ ~~~~~~~~~~~~~ ~~~~~~~~~~~~~~~~ ~~~~~~~~~~~~~ ~~~~~~~~~~~~~ HDL Cholesterol<40 mg/dL: HDL Cholesterol (Mateus or risk factor for CHD)> 60mg/dL: HDL Cholesterol (Neg ative risk factor for CHD)4 0-59mg/dL: Borderline Risk LDL Cholesterol<10 0mg/dL: Desirable LDL-C tnqqxhqhxxvie264 -159mg/dL: Borderline High Risk LDL-C ktrqjniyglwpr357 -189mg/dL: High risk LDL-C concentration HDL-LDL Choleste rol is affected by a nu mber of factors suchas s moking, age and sex.~~~~~~~~~~~~ ~~~~~~~~~~~~~ ~~~~~~~~~~~~~~~~ ~~~~~~~~~~~~~ ~~~~~~ HGBA1C - GLYCOSYLATED [id number] 00:29:00 Test Item Value Reference Range Comments GLYCOSYLATED HEMOGLOBIN 10.3 % 0-5.9 Current guidelines recommend a (HA1C) (test code = GLYHGB) elizabeth tment goal of <7% fordiabetic patients. A1c m ay be overestimated in diabeticpatie nts exhibiting poor control and who are alsoheterozygous or homozygous for HgbS or HgbC. T otalglycohemoglobin is a better sun cator of diabetic control inpatien ts with these hemoglobin varia nts. - CT HEAD/BRAIN W/O [id number] 23:39:00 FAX: Irais Alcantara [phone] [place]: St: REG Name: HOPE CORNEJO : 1960 Age/S: 58/M [address] Unit: [id number] Loc: [place] [address] Phys: Irais River ZONING ADMINISTRATOR Acct: [id number] Dis Date: Status: REG ER PHONE #: [phone] Exam Date: 04/09/2019 2328 FAX #: [phone] Reason: headache, htn EXAMS: CPT CODE: [id number] CT HEAD/BRAIN W/O CONT 76364 Examination: Noncontrast head CT Indication: Headache Comparison: None Location: R16 Technique: Multiple CTimages of the brain were obtained from the skull base to the vertex. No intravenous contrast was administered. One or more of the following dose reduction techniques were used: Automated exposure control, adjustment of the mA and/or kV according to patient size, and/or utilizat ion of iterative reconstruction technique. Findings: There is prominence of the ventricles and [...] 1 Signed Report (CONTINUED) FAX: Irais Alcantara [phone] [place]: St: REG Name: HOPE CORNEJO : 1960 Age/S: 58/M [address] Unit: [id number] Loc: [place] [address] Phys: Irais River ZONING ADMINISTRATOR Acct: [id number] Dis Date: Status: REG ER PHONE #: [phone] Exam Date: 04/09/20192327 FAX #: [phone] Reas on: headache, htn EXAMS: CPT CODE: [id number] CT HEAD/BRAIN W/O CONT 61810 <Continued> CC: Irais River NP Technologist: Christina Feliciano; Nadeem Kendrick Trnscrd Dt/Tm: 04/09/2019 (0739) [email or web address] Orig Print D/T: S: 04/09/2019 (2340 PAGE 2 Signed ReportCOMPREHENSIVE METABOLIC [id number] 23:25:00 Test Item Value Reference Range Comments SODIUM (test code = NA) 129 mmol/L 137-145 POTASSIUM (test code = K) 4.4 mmol/L 3.4-5.0 CHLORIDE (test code = CL) 97 mmol/L 98-107 CARBON DIOXIDE (test code = 20 mmol/L 22-30 CO2) GLUCOSE (test code = GLU) 563 mg/dL 74-106 Critic al Value reported toFirst Name:DXU 7021 Last Name:RESULTS OTONIEL D BACK AND VERIFIEDby C.LAB .MG, on 04/09/19, @ 2324 . OK TO REPORT BLOOD UREA NITROGEN (test 16 mg/dL 9-20 code = BUN) GLOMERULAR FILTRATION RATE 92 >60 The e stimated glomerular (test code = GFR) filtration rat e is computed usingpatient rac e, age (>18), sex, and serum c reatinine. If anyof the needed data elements are mis sing the Laboratory canno t compute an estimation of th e glomerular filtration rate. CREATININE (test code = 0.9 mg/dL 0.7-1.3 CREAT) TOTAL PROTEIN (test code = 7.8 g/dL 6.3-8.2 PROT) ALBUMIN (test code = ALB) 4.4 g/dL 3.5-5.0 CALCIUM (test code = CA) 8.9 mg/dL 8.4-10.2 BILIRUBIN TOTAL (test code = 0.8 mg/dL 0.2-1.3 BILT) BILIRUBIN CONJUGATED (test 0 mg/dL 0-0.3 ~~~~~ ~~~~~~~~~~~~~~~~~~~~~~~~ code = BILCON) ~~~~~~~~~~~~~~~~ ~~~~~~~~~~~~~ ~~CONJUGATED LETTY IRUBIN IS THE REPLACEMENT ASSA Y FOR DIRECTBILIRUBIN. ~~~~~~~~~~~~~ ~~~~~~~~~~~~~~~~ ~~~~~~~~~~~~~ ~~~~~~~~~~~~~~~~ ~~ BILIRUBIN UNCONJUGATED (test 0.4 mg/dL 0-1.1 code = BILUNC) SGOT/AST (test code = AST) 94 U/L 15-46 SGPT/ALT (test code = ALT) 117 U/L 13-69 ALKALINE PHOSPHATASE (test 81 U/L 38-126 code = ALKP) CBC W/AUTO [id number] 23:16:00 Test Item Value Reference Range Comments WHITE BLOOD CELL (test code = WBC) 6.5 x10 3/uL 5.0-12.0 RED BLOOD CELL (test code = RBC) 4.25 x10 6/uL 4.70-6.10 HEMOGLOBIN (test code = HGB) 14.0 g/dL 14.0-18.0 HEMATOCRIT (test code = HCT) 37.4 % 37.0-49.0 MEAN CELL VOLUME (test code = MCV) 88 fL 80-94 MEAN CELL HGB (test code = MCH) 32.9 pg 27-31 MEAN CELL HGB CONCENTRATION (test code = MCHC) 37.4 g/dL 3 3-37 RED CELL DISTRIBUTION WIDTH (test code = RDW) 12.6 % 11 .5-15.5 PLATELET COUNT (test code = PLT) 212 x10 3/uL 130-400 MEAN PLATELET VOLUME (test code = MPV) 10.0 fL 9.4-16.4 NEUTROPHIL % (test code = NT%) 57.5 % 43-65 IMMATURE GRANULOCYTE % (test code = IG%) 0.2 % 0.0-2.0 LYMPHOCYTE % (test code = LY%) 31.2 % 20.5-45.5 MONOCYTE % (test code = MO%) 6.2 % 5.5-11.7 EOSINOPHIL % (test code = EO%) 4.0 % 0.9-2.9 BASOPHIL % (test code = BA%) 0.9 % 0.2-1.0 NUCLEATED RBC % (test code = NRBC%) 0.0 % 0-1.0 NEUTROPHIL # (test code = NT#) 3.72 x10 3/uL 2.2-4.8 IMMATURE GRANULOCYTE # (test code = IG#) 0.01 x10 3/uL 0-0.03 LYMPHOCYTE # (test code = LY#) 2.02 x10 3/uL 1.3-2.9 MONOCYTE # (test code = MO#) 0.40 x10 3/uL 0.3-0.8 EOSINOPHIL # (test code = EO#) 0.26 x10 3/uL 0.0-0.2 BASOPHIL # (test code = BA#) 0.06 x10 3/uL 0.0-0.1 - XR CHEST 1 [id number] 23:12:00 FAX: Irais Alcantara [phone] [place]: St: REG Name: HOPE CORNEJO [facility] Fam : 1960 Age/S: 58/M [address] Unit#: [id number] Loc: [place] [address] Phys: Irais River ZONING ADMINISTRATOR Acct: [id number] Dis Date: Status: REG ER PHONE #: [phone] Exam Date: 04/09/20192254 FAX #: [phone] Reason: elevated bp EXAMS: CPT CODE: [id number] XR CHEST 1 V 63629 Examination: One view chest x-ray Location code: H60 Comparison: None Discussion: Clinical history is remarkable for elevated blood pressure. Heart is normal in size. Lungs are clear of consolidatinginfiltrates. No masses, nodules or effusions identified. Impression: 1. Normal one view chest x-ray. at 2312 Reported and signed by: Marc Kebede MD CC: Irais River NP Technologist: LAWSON BORJAS Date/Time/By: 04/09/2019 (2311) : By: [email or web address] PAGE 1 Signed Report FAX: Irais Alcantara [phone] [place]: St: REG -- Name: HOPE CORNEJO [facility] : 1960 Age/S: 58/M [address] Unit #: [id number] Loc: [place] [address] Phys: Irais River ZONING ADMINISTRATOR Acct: [id number] Dis Date: Status: REG ER PHONE #: [phone] Exam Date: 04/09/20192254 FAX #: [phone] Reason: elevatedbp EXAMS: CPT CODE: [id number] XR CHEST 1 V 78545 <Continued> Orig Print D/T: S: 04/09/2019 (1493)PAGE 2 Signed Report CBC W/AUTO [id number] 23:07:00 Test Item Value Reference Range Comments WHITE BLOOD CELL (test code = WBC) 6.5 x10 3/uL 5.0-12.0 RED BLOOD CELL (test code = RBC) 4.25 x10 6/uL 4.70-6.10 HEMOGLOBIN (test code = HGB) 14.0 g/dL 14.0-18.0 HEMATOCRIT (test code = HCT) 37.4 % 37.0-49.0 MEAN CELL VOLUME (test code = MCV) 88 fL 80-94 MEAN CELL HGB (test code = MCH) 32.9 pg 27-31 MEAN CELL HGB CONCENTRATION (test code = MCHC) g/dL 3 3-37 RED CELL DISTRIBUTION WIDTH (test code = RDW) 12.6 % 11 .5-15.5 PLATELET COUNT (test code = PLT) 212 x10 3/uL 130-400 MEAN PLATELET VOLUME (test code = MPV) 10.0 fL 9.4-16.4 NEUTROPHIL % (test code = NT%) 57.5 % 43-65 IMMATURE GRANULOCYTE % (test code = IG%) 0.2 % 0.0-2.0 LYMPHOCYTE % (test code = LY%) 31.2 % 20.5-45.5 MONOCYTE % (test code = MO%) 6.2 % 5.5-11.7 EOSINOPHIL % (test code = EO%) 4.0 % 0.9-2.9 BASOPHIL % (test code = BA%) 0.9 % 0.2-1.0 NUCLEATED RBC % (test code = NRBC%) 0.0 % 0-1.0 NEUTROPHIL # (test code = NT#) 3.72 x10 3/uL 2.2-4.8 IMMATURE GRANULOCYTE # (test code = IG#) 0.01 x10 3/uL 0-0.03 LYMPHOCYTE # (test code = LY#) 2.02 x10 3/uL 1.3-2.9 MONOCYTE # (test code = MO#) 0.40 x10 3/uL 0.3-0.8 EOSINOPHIL # (test code = EO#) 0.26 x10 3/uL 0.0-0.2 BASOPHIL # (test code = BA#) 0.06 x10 3/uL 0.0-0.1 TROPONIN I [id number] 23:05:00 Test Item Value Reference Range Comments TROPONIN I RAPID (test 0.00 ng/mL 0.00-0.079 ISTAT TROPONIN I code = TROPIRAP) CRITERIA0.00-0. 08 ng/mL - Negative>0.08 ng /mL - Positive The use of serial sampling and yolande ting protocol is arecommended pra ctice.An elevated troponin level a lone is often not sufficient fordi agnosis of myocardial infar ction. Troponin results obtained by different assays may vary. Evaluation of the extent of myocar dial damage based onincrease of tr oponin would be valid only if si milarmethodology is used.
[2019-05-28] MEDS ORDERED: ONDANSETRON 4 MG/2 ML VIAL ONE (07:36)
[2019-05-28] MEDS ORDERED: METRONIDAZOLE 500mg IVPB 500 MG/100 ML BAG IV ONE (07:36)
[2019-05-28] MEDS ORDERED: NA CHLORIDE 0.9% 1,000 ML ONE (07:36)
[2019-05-28] MEDS ORDERED: CIPROFLOXACIN 400mg IV 400 MG/200 ML BAG IV ONE (07:36)
[2019-05-28] MEDS ORDERED: Ciprofloxacin 200mg IV 200 MG/100 ML IV.SOLN. IV ONE (07:58)
[2019-05-28 08:09] LABS: Protime INR 0.99
[2019-05-28 08:11] LABS: Absolute Lymphocytes (CBC) 1.6 K/uL (0.7-4.9); Basophils % 1.3 % (0-1.3); Hematocrit 36.9 % (39.6-49.0); Lymphocytes % 30.2 % (15.3-44.8); MPV 7.8 fL (7.6-11.3); RBC Red Blood Cell Count 3.92 M/uL (4.33-5.43)
[2019-05-28 08:41] LABS: ALT/SGPT 120 U/L (12-78); AST/SGOT 96 U/L (15-37); Albumin 3.6 g/dL (3.4-5.0); Alkaline Phosphatase 73 U/L (45-117); BUN Blood Urea Nitrogen 29 mg/dL (7-18); Bicarbonate 23 mmol/L (21-32); Bilirubin Direct < 0.1 mg/dL (0-0.2); Bilirubin Total 0.3 mg/dL (0.2-1.0); Lipase 183 U/L (73-393); Magnesium 1.9 mg/dL (1.8-2.4); NT PRO-BNP 75 pg/mL (<125); Potassium 4.6 mmol/L (3.5-5.1); Protein, Total 8.1 g/dL (6.4-8.2); Sodium Level 135 mmol/L (136-145); Troponin (Emerg Dept Use Only) < 0.02 ng/mL (0.0-0.045)
[2019-05-28 08:42] LABS: Glucose Level 439 mg/dL (74-106)
--- NOTE | 2019-05-28 09:21 | RAD REPORT ---
EXAM DESCRIPTION: CT - Abdomen Pelvis W Contrast - 05/28/2019 9:02 am CLINICAL HISTORY: Abdominal pain COMPARISON: none. TECHNIQUE: Computed axial tomography of the abdomen pelvis was obtained. 100 cc [id number] was admin istered intravenously. Oral contrast was not requested which limits evaluation of bowel. All CT scans are performed using dose optimization technique as appropriate and may include automated exposure control or mA/KV adjustment according to patient size. FINDINGS: Hepatomegaly. Fatty infiltration of the liver. Gallstones without gallbladder wall thicken ing Spleen, pancreas, adrenal and kidneys appear unremarkable. There is no evidence of diverticulitis. Small inguinal hernias contain fat. 7 centimeter segment of wall thickening involves the distal sigmoid colon. Spondylosis involves lumba r spine resulting in spinal stenosis IMPRESSION: 7 centimeter segment of wall thickening involves the distal sigmoid colon. Most likely t his represents colitis. A mass can have this appearance but is considered less likely. This should be followed on subsequent examination.
--- NOTE | 2019-05-28 09:26 | EDPHYS ---
Physician Documentation [facility] Name: Gabriel Walker Age: 58 yrs Sex: Male : 1960 Arrival Date: 05/28/2019 Time: 07:00 Bed 14 Private MD: NAHOMI Physician Jann De La Garza HPI: 05/27 08:08 This 58 yrs old Male presents to ER via Ambulatory with complaints of Rectal dee Bleeding. 08:08 The patient presents to the emergency department with bleeding from the rectum/anus, dee that is moderate. Onset: The symptoms/episode began/occurred 2 day(s) ago. Context: the patient has no known special context relating to the rectal area complaint(s). Modifying factors: The symptoms are alleviated by nothing, The symptoms are aggravated by bowel movement. Associate signs and symptoms: The patient has no apparent associated signs or symptoms. The patient has experienced similar episodes in the past, a few times. Historical: - Allergies: 07:25 No Known Allergies; jl7 - Home Meds: 07:25 Glipizide Oral [Active]; Lisinopril Oral [Active]; Nexium Oral [Active]; gabapentin jl7 oral oral [Active]; - PMHx: 07:25 GERD; Hypertension; Diabetes - NIDDM; jl7 - PSHx: 07:25 laminectomy, spinal fusion; jl7 - Immunization history:: Adult Immunizations not up to date. - Social history:: Smoking status: Patient reports the use of cigarette tobacco products, smokes one pack cigarettes per day. - Family history:: not pertinent. ROS: 08:08 Constitutional: Negative for fever, chills, and weight loss, Eyes: Negative for injury, dee pain, redness, and discharge, ENT: Negative for injury, pain, and discharge, Neck: Negative for injury, pain, and swelling, Cardiovascular: Negative for chest pain, palpitations, and edema, Respiratory: Negative for shortness of breath, cough, wheezing, and pleuritic chest pain, Back: Negative for injury and pain, : Negative for injury, bleeding, discharge, and swelling, MS/Extremity: Negative for injury and deformity, Skin: Negative for injury, rash, and discoloration, Neuro: Negative for headache, weakness, numbness, tingling, and seizure, Psych: Negative for depression, anxiety, suicide ideation, homicidal ideation, and hallucinations, Allergy/Immunology: Negative for hives, rash, and allergies, Endocrine: Negative for neck swelling, polydipsia, polyuria, polyphagia, and marked weight changes, Hematologic/Lymphatic: Negative for swollen nodes, abnormal bleeding, and unusual bruising. 08:08 Abdomen/GI: Positive for abdominal pain, rectal bleeding. Exam: 08:08 Constitutional: This is a well developed, well nourished patient who is awake, alert, dee and in no acute distress. Head/Face: Normocephalic, atraumatic. Eyes: Pupils equal round and reactive to light, extra-ocular motions intact. Lids and lashes normal. Conjunctiva and sclera are non-icteric and not injected. Cornea within normal limits. Periorbital areas with no swelling, redness, or edema. ENT: Nares patent. No nasal discharge, no septal abnormalities noted. Tympanic membranes are normal and external auditory canals are clear. Oropharynx with no redness, swelling, or masses, exudates, or evidence of obstruction, uvula midline. Mucous membranes moist. Neck: Trachea midline, no thyromegaly or masses palpated, and no cervical lymphadenopathy. Supple, full range of motion without nuchal rigidity, or vertebral point tenderness. No Meningismus. Chest/axilla: Normal chest wall appearance and motion. Nontender with no deformity. No lesions are appreciated. Cardiovascular: Regular rate and rhythm with a normal S1 and S2. No gallops, murmurs, or rubs. Normal PMI, no JVD. No pulse deficits. Respiratory: Lungs have equal breath sounds bilaterally, clear to auscultation and percussion. No rales, rhonchi or wheezes noted. No increased work of breathing, no retractions or nasal flaring. Back: No spinal tenderness. No costovertebral tenderness. Full range of motion. Male : Normal genitalia with no discharge or lesions. Skin: Warm, dry with normal turgor. Normal color with no rashes, no lesions, and no evidence of cellulitis. MS/ Extremity: Pulses equal, no cyanosis. Neurovascular intact. Full, normal range of motion. Neuro: Awake and alert, GCS 15, oriented to person, place, time, and situation. Cranial nerves II-XII grossly intact. Motor strength 5/5 in all extremities. Sensory grossly intact. Cerebellar exam normal. Normal gait. Psych: Awake, alert, with orientation to person, place and time. Behavior, mood, and affect are within normal limits. 08:08 Abdomen/GI: Inspection: distension, Bowel sounds: normal, Palpation: mild abdominal tenderness, in the right upper quadrant, left upper quadrant and right lower quadrant, Rectal exam: rectal tone normal, Stool: guaiac negative, hemorrhoid(s), external, with inflammation, mass, is not appreciated, swelling, that is mild, tenderness, that is mild, fecal impaction, is not appreciated, Liver: no appreciated palpable abnormalities, Hernia: not appreciated. Vital Signs: 07:19 BP 136 / 86; Pulse 80; Resp 17 S; Temp 98.3(O); Pulse Ox 97% on R/A; Pain 0/10; jl7 08:20 BP 131 / 88; Pulse 77; Resp 17; Temp 98.0(TE); Pulse Ox 97% on R/A; mh5 09:20 BP 148 / 92; Pulse 72; Resp 16 S; Pulse Ox 98% on R/A; jl7 MDM: 07:16 Patient medically screened. dee 08:10 Data reviewed: vital signs, nurses notes, lab test result(s), EKG, radiologic studies, [facility] CT scan. 08:50 Differential diagnosis: hemorrhoids, abscess. dee 09:12 ED course: hx of diverticulitis, multiple episdes, all treated with abxs, mild abd pain dee now, no rebound no guarding.i i arranged close foloow up with dr jolley, pt aware. 05/27 07:20 Order name: Basic Metabolic Panel; Complete Time: 09:[address] [facility] 05/27 07:20 Order name: CBC with Diff; Complete Time: 09:[address] [facility] 05/27 07:20 Order name: LFT's; Complete Time: 09:[address] [facility] 05/27 07:20 Order name: Magnesium; Complete Time: 09:[address] [facility] 05/27 07:20 Order name: NT PRO-BNP; Complete Time: 09:[address] [facility] 05/27 07:20 Order name: PT-INR; Complete Time: 09:[address] [facility] 05/27 07:20 Order name: Troponin (emerg Dept Use Only); Complete Time: 09:[address] [facility] 05/27 07:20 Order name: Lipase; Complete Time: 09:[address] [facility] 05/27 07:20 Order name: CT Abd/Pelvis - PO and IV Contrast; Complete Time: 09:[address] [facility] 05/27 07:20 Order name: Urine Culture [facility] 05/27 09:43 Order name: Urine Dipstick--Ancillary (enter results) 05/27 07:20 Order name: EKG; Complete Time: 07:[address] [facility] 05/27 07:20 Order name: Cardiac monitoring; Complete Time: 07:[address] [facility] 05/27 07:20 Order name: EKG - Nurse/Tech; Complete Time: 07:[address] [facility] 05/27 07:20 Order name: IV Saline Lock; Complete Time: 08:[address] [facility] 05/27 07:20 Order name: Labs collected and sent; Complete Time: 08:[address] [facility] 05/27 07:20 Order name: O2 Per Protocol; Complete Time: 08:[address] [facility] 05/27 07:20 Order name: O2 Sat Monitoring; Complete Time: 08:[address] [facility] 05/27 07:20 Order name: Urine Dipstick-Ancillary (obtain specimen); Complete Time: 09:[address] [facility] 05/27 09:18 Order name: Blood Glucose Level; Complete Time: 09:[address] [facility] Administered Medications: 07:53 Drug: Cipro 400 mg Volume: 200 ml; Route: IVPB; Infused Over: 60 mins; Site: [address]; 08:53 Follow up: Response: No adverse reaction; IV Status: Completed infusion 07:55 Drug: Flagyl 500 mg Volume: 100 ml; Route: IVPB; Rate: 200 ml/hr; Infused Over: 30 jl7 mins; Site: left antecubital; 08:25 Follow up: Response: No adverse reaction; IV Status: Completed infusion 07:57 Drug: NS 0.9% 1000 ml Route: IV; Rate: 1 bolus; Site: left antecubital; jl7 09:00 Follow up: Response: No adverse reaction; IV Status: Completed infusion; IV Intake: jl7 1000ml 07:58 Drug: Zofran (Ondansetron) 4 mg Route: IVP; Site: left antecubital; [facility] 08:15 Follow up: Response: No adverse reaction; Nausea is decreased [facility] 09:23 Drug: Insulin Regular Human 10 units {Co-Signature: aa5 (Meme Mon RN).} Route: jl7 IVP; Site: left antecubital; 09:52 Follow up: Response: Blood sugar is lowered 09:37 Drug: Mucomyst - Acetylcysteine 600 mg Route: PO; 09:51 Follow up: Response: No adverse reaction Point of Care Testing: Guaiac: 09:26 Stool Guaiac: Negative; Stool Hemoccult Control: Pass; dee Disposition: 05/28/19 09:25 Discharged to Home. Impression: Abdominal tenderness, Diverticular disease of intestine - 7 cm segment of sigmoid colon, colitis, Gastrointestinal hemorrhage, unspecified - lower, Type 2 diabetes mellitus - poorly controlled, Tobacco use. - Condition is Stable. - Discharge Instructions: Abdominal Pain, Adult, Type 2 Diabetes Mellitus, Diagnosis, Adult, Gastrointestinal Bleeding, Rectal Bleeding, Abdominal Pain, Adult, Njbu-if-Haap, Type 2 Diabetes Mellitus, Diagnosis, Adult, Gcrn-pq-Krev, Rectal Bleeding, Flyq-in-Rwwb, Type 2 Diabetes Mellitus, Self Care, Adult, Type 2 Diabetes Mellitus, Self Care, Adult, Ibsx-ib-Cynn. - Prescriptions for Bentyl 20 mg Oral Tablet - take 1 tablet by ORAL route every 6 hours As needed; 20 tablet. Flagyl 500 mg Oral Tablet - take 1 tablet by ORAL route every 8 hours for 10 days; 30 tablet. Zofran 4 mg Oral Tablet - take 1 tablet by ORAL route every 12 hours As needed; 20 tablet. Cipro 500 mg Oral Tablet - take 1 tablet by ORAL route every 12 hours for 10 days; 20 tablet. Colace 100 mg Oral Tablet - take 1 tablet by ORAL route every 12 hours; 14 tablet. - Medication Reconciliation Form, Thank You Letter, Antibiotic Education, Prescription Opioid Use form. - Follow up: Private Physician; When: 2 - 3 days; Reason: Recheck today's complaints, Continuance of care, Re-evaluation by your physician. Follow up: Yusuf Jolley; When: 2 - 3 days; Reason: Recheck today's complaints, Re-evaluation by your physician. - Problem is new. - Symptoms have improved. Signatures: Dispatcher [employer] Jann Diaz MD MD cha Leal, Jahala RN RN jl7 Meme Mon RN aa5 Corrections: (The following items were deleted from the chart) 08:14 07:21 Chest Single View+[id number] ordered. EDND EDMS 09:26 09:17 Abdomen/GI: dee [facility] 09:55 09:25 05/28/2019 09:25 Discharged to Home. Impression: Abdominal tenderness; jl7 Diverticular disease of intestine - 7 cm segment of sigmoid colon, colitis; Gastrointestinal hemorrhage, unspecified - lower; Type 2 diabetes mellitus - poorly controlled; Tobacco use. Condition is Stable. Discharge Instructions: Abdominal Pain, Adult, Gastrointestinal Bleeding, Rectal Bleeding, Abdominal Pain, Adult, Ofql-bg-Pubc, Rectal Bleeding, Vwxi-nv-Auyc, Type 2 Diabetes Mellitus, Diagnosis, Adult, Type 2 Diabetes Mellitus, Diagnosis, Adult, Gthj-im-Ezlo, Type 2 Diabetes Mellitus, Self Care, Adult, Type 2 Diabetes Mellitus, Self Care, Adult, Dmsf-ha-Solk. Prescriptions for Bentyl 20 mg Oral Tablet - take 1 tablet by ORAL route every 6 hours As needed; 20 tablet, Flagyl 500 mg Oral Tablet - take 1 tablet by ORAL route every 8 hours for 10 days; 30 tablet, Zofran 4 mg Oral Tablet - take 1 tablet by ORAL route every 12 hours As needed; 20 tablet, Cipro 500 mg Oral Tablet - take 1 tablet by ORAL route every 12 hours for 10 days; 20 tablet, Colace 100 mg Oral Tablet - take 1 tablet by ORAL route every 12 hours; 14 tablet. and Forms are Medication Reconciliation Form, Thank You Letter, Antibiotic Education, Prescription Opioid Use. Follow up: Private Physician; When: 2 - 3 days; Reason: Recheck today's complaints, Continuance of care, Re-evaluation by your physician. Follow up: Yusuf Jolley; When: 2 - 3 days; Reason: Recheck today's complaints, Re-evaluation by your physician. Problem is new. Symptoms have improved. dee
--- NOTE | 2019-05-28 09:26 | ER ---
Nurse's Notes [facility] Name: Gabriel Walker Age: 58 yrs Sex: Male : 1960 Arrival Date: 05/28/2019 Time: 07:00 Bed 14 Private MD: Diagnosis: Abdominal tenderness;Diverticular disease of intestine-7 cm segment of sigmoid colon, colitis;Gastrointestinal hemorrhage, unspecified-lower;Type 2 diabetes mellitus-poorly controlled;Tobacco use Presentation: 05/27 07:19 Chief complaint: Patient states: Woke last night and had myah blood pouring out from jl7 anus. Denies diarrhea, denies abdominal pain, reports normal bowel habits. Coronavirus screen: Proceed with normal triage. Patient denies a cough. Patient denies shortness of breath or difficulty breathing. Patient denies measured and/or subjective temperature greater than 100.4F prior to today's visit. Patient denies travel on a cruise ship or to a country the [facility] currently lists as an affected area. Patient denies contact with known and/or suspected case of COVID-19. Ebola Screen: No symptoms or risks identified at this time. Initial Sepsis Screen: Does the patient meet any 2 criteria? No. Patient's initial sepsis screen is negative. Does the patient have a suspected source of infection? No. Patient's initial sepsis screen is negative. Risk Assessment: Do you want to hurt yourself or someone else? Patient reports no desire to harm self or others. Onset of symptoms was May 28, 2019. 07:19 Method Of Arrival: Ambulatory [facility] 07:19 Acuity: PARVIN 3 jl7 Triage Assessment: 07:25 General: Appears in no apparent distress. uncomfortable, Behavior is calm, cooperative, jl7 appropriate for age, anxious. Pain: Denies pain. Neuro: Level of Consciousness is awake, alert, obeys commands, Oriented to person, place, time, situation. Cardiovascular: Patient's skin is warm and dry. Respiratory: Airway is patent Respiratory effort is even, unlabored, Respiratory pattern is regular, symmetrical. GI: Reports rectal bleeding, hemorrhoids, nausea, Patient currently denies constipation, diarrhea. : No signs and/or symptoms were reported regarding the genitourinary system. Historical: - Allergies: 07:25 No Known Allergies; jl7 - Home Meds: 07:25 Glipizide Oral [Active]; Lisinopril Oral [Active]; Nexium Oral [Active]; gabapentin jl7 oral oral [Active]; - PMHx: 07:25 GERD; Hypertension; Diabetes - NIDDM; jl7 - PSHx: 07:25 laminectomy, spinal fusion; jl7 - Immunization history:: Adult Immunizations not up to date. - Social history:: Smoking status: Patient reports the use of cigarette tobacco products, smokes one pack cigarettes per day. - Family history:: not pertinent. Screenin:45 Abuse screen: Denies threats or abuse. Denies injuries from another. Nutritional jl7 screening: No deficits noted. Tuberculosis screening: No symptoms or risk factors identified. Fall Risk IV access (20 points). Total Miller Fall Scale indicates No Risk (0-24 pts). Assessment: 07:35 Reassessment: Pt finished drinking oral contrast, CT notified. jl7 08:30 Reassessment: Patient appears in no apparent distress at this time. No changes from jl7 previously documented assessment. Patient and/or family updated on plan of care and expected duration. Pain level reassessed. Patient is alert, oriented x 3, equal unlabored respirations, skin warm/dry/pink. Vital Signs: 07:19 BP 136 / 86; Pulse 80; Resp 17 S; Temp 98.3(O); Pulse Ox 97% on R/A; Pain 0/10; jl7 08:20 BP 131 / 88; Pulse 77; Resp 17; Temp 98.0(TE); Pulse Ox 97% on R/A; mh5 09:20 BP 148 / 92; Pulse 72; Resp 16 S; Pulse Ox 98% on R/A; jl7 ED Course: 07:00 Patient arrived in ED. ds1 07:16 Jann De La Garza MD is Attending Physician. dee 07:18 Davis Bailey RN is Primary Nurse. jl7 07:22 Triage completed. jl7 07:25 Arm band placed on right wrist. jl7 07:45 Initial lab(s) drawn, by nm, sent to lab. EKG done. Inserted saline lock: 20 gauge in jl7 left antecubital area, using aseptic technique. Blood collected. 07:54 Patient has correct armband on for positive identification. Placed in gown. Bed in low mh5 position. Call light in reach. Side rails up X2. Warm blanket given. mexican food maker on. Pulse ox on. NIBP on. 09:02 CT Abd/Pelvis - PO and IV Contrast In Process Unspecified. EDMS 09:24 Yusuf Guevara MD is Referral Physician. dee 09:45 IV discontinued, Pressure dressing applied. 5 09:54 No provider procedures requiring assistance completed. jl7 09:55 IV discontinued, intact, bleeding controlled, No redness/swelling at site. Pressure jl7 dressing applied. Administered Medications: 07:53 Drug: Cipro 400 mg Volume: 200 ml; Route: IVPB; Infused Over: 60 mins; Site: left jl7 antecubital; 08:53 Follow up: Response: No adverse reaction; IV Status: Completed infusion jl7 07:55 Drug: Flagyl 500 mg Volume: 100 ml; Route: IVPB; Rate: 200 ml/hr; Infused Over: 30 jl7 mins; Site: left antecubital; 08:25 Follow up: Response: No adverse reaction; IV Status: Completed infusion jl7 07:57 Drug: NS 0.9% 1000 ml Route: IV; Rate: 1 bolus; Site: left antecubital; jl7 09:00 Follow up: Response: No adverse reaction; IV Status: Completed infusion; IV Intake: jl7 1000ml 07:58 Drug: Zofran (Ondansetron) 4 mg Route: IVP; Site: left antecubital; jl7 08:15 Follow up: Response: No adverse reaction; Nausea is decreased jl7 09:23 Drug: Insulin Regular Human 10 units {Co-Signature: aa5 (Meme Mon RN).} Route: jl7 IVP; Site: left antecubital; 09:52 Follow up: Response: Blood sugar is lowered jl7 09:37 Drug: Mucomyst - Acetylcysteine 600 mg Route: PO; jl7 09:51 Follow up: Response: No adverse reaction jl7 Point of Care Testing: Guaiac: 09:26 Stool Guaiac: Negative; Stool Hemoccult Control: Pass; dee Intake: 09:00 IV: 1000ml; Total: 1000ml. jl7 Outcome: 09:25 Discharge ordered by . [facility] 09:54 Discharged to home ambulatory. jl7 09:54 Condition: stable 09:54 Discharge instructions given to patient, Instructed on discharge instructions, follow up and referral plans. medication usage, Demonstrated understanding of instructions, follow-up care, medications, Prescriptions given X 5 09:55 Patient left the ED. jl7 Signatures: Dispatcher [employer] Jann Diaz MD MD cha Sanford, Demi ds1 Martinez, Maria Davis Simons, SUZANNA RN jl7 Meme Mon RN aa5
[2019-05-28] MEDS ORDERED: INSULIN -REGULAR HUMAN 50 UNIT/0.5 ML ML ONE (09:27)
[2019-05-28] MEDS ORDERED: ACETYLCYST 6,000 MG/30 ML VIAL ONE (09:42)
[2019-05-28 09:54] LABS: Urine Blood NEGATIVE (NEG); Urine Glucose 2+ (NEG); Urine Protein NEGATIVE (NEG); Urine pH 5.5 (5.0-7.0)
[2019-05-28 10:06] VITALS: TEMP 98
[2019-05-28 10:07] VITALS: BP 148/92; O2SAT 98
--- NOTE | 2019-05-28 16:17 | EKG ---
Test Date: 2019-05-28 Test Time: 07:47:31 Certified Medical Coding Specialist: RADHA MEASUREMENT RESULTS: Intervals: Rate: 79 WA: 166 QRSD: 122 QT: 368 QTc: 421 [place]: P: 58 WA: 166 QRS: -12 T: 21 INTERPRETIVE STATEMENTS: Normal sinus rhythm Septal infarct, age undetermined Abnormal ECG No previous ECG available for comparison Electronically Signed On 05-28-19 16:16:12 CDT by [place]
== END 2019-05-28 09:55 | disposition home or self-care (01) ==
LOC: ER 06:55
DX: K57.30 Diverticulosis of large intestine without perforation or abscess without bleeding (principal); K52.9 Noninfective gastroenteritis and colitis, unspecified; R10.819 Abdominal tenderness, unspecified site; E11.9 Type 2 diabetes mellitus without complications; I10 Essential (primary) hypertension; K21.9 Gastro-esophageal reflux disease without esophagitis; Z72.0 Tobacco use
CPT/HCPCS: 93005; 87088; 85025; 87086; 80048; 36415; 83735; 85610; 82947; 80076; 81003; 84484; 83690; 83880; 74177; Q9967; J0744 ×2; J7030; J2405; 96365; 96375; 99284

== ENCOUNTER 2019-11-26 09:59 | Emergency (ER) | payer OTHER, SELFPAY ==
[2019-11-26 10:39] LABS: Absolute Lymphocytes (CBC) 1.8 K/uL (0.7-4.9); Basophils % 0.4 % (0-1.3); Hematocrit 37.3 % (39.6-49.0); Lymphocytes % 31.3 % (15.3-44.8); MPV 8.2 fL (7.6-11.3); RBC Red Blood Cell Count 4.03 M/uL (4.33-5.43)
[2019-11-26 10:55] LABS: Albumin 3.7 g/dL (3.4-5.0); Bilirubin Direct 0.1 mg/dL (0-0.2); Bilirubin Total 0.7 mg/dL (0.2-1.0)
[2019-11-26 10:56] LABS: Potassium 4.3 mmol/L (3.5-5.1)
[2019-11-26] MEDS ORDERED: MORPHINE 4 MG/ML SYR ONE (10:59)
[2019-11-26] MEDS ORDERED: ONDANSETRON 4 MG/2 ML VIAL ONE (10:59)
--- OUTSIDE RECORDS SUMMARY | 2019-11-26 11:14 | XMS REPORT | Continuity of Care Document ---
:1960 Author Organization [email or web address] Care Team Providers Name Role Phone [email or web address] Unavailable Un available Problems Problem Status Onset Classification Date Comments Sourc e Date Reported Asthma Active Problem 03/03/2019 [facility] (disorder) Group Simple Active Problem 03/03/2019 [facility] l obesity Group (disorder) Medications Medication Details Route Status Patient Ordering Order Source Instructions Provider Date lisinopril 40 40 mg = 1 Active MH mg oral tablet tab, PO, 020 Medical Daily, # 90 Group tab, 0 Refill(s), Pharmacy: [facility] Fluticasone 1 spray, Active MH propionate 0.05 NASAL, BID, 020 Medi claudio MG/ACTUAT # 16 gm, 0 Group Metered Dose Refill(s), Nasal [place] Pharmacy: [facility] Ventolin HFA 90 2 puff, Active MH mcg/inh INHALER, 020 Medical inhalation QID, PRN Group aerosol with wheezing, adapter coughing, or shortness of breath, # 1 ea, 0 Refill(s), Pharmacy: [facility] Esomeprazole 40 40 mg = 1 Active MH MG Enteric cap, PO, 020 Medical Coated Capsule Daily, # 90 Group tab, 1 Refill(s), Pharmacy: [facility] Ventolin HFA 90 INHALER, PRN Inactive MH mcg/inh wheezing, 020 Medical inhalation coughing, or Group aerosol with shortness of adapter breath Esomeprazole 40 40 mg = 1 Inactive MH MG Enteric cap, PO, 020 Medical Coated Capsule Daily Group Allergies, Adverse Reactions, Alerts Substance Category Reaction Severity Reaction Status Date Comments S ource type Reported codeine Assertion Drug Active MH allergy Medical Group Immunizations No Data Provided for This Section Results No Data Provided for This Section Pathology Reports No Data Provided for This Section Diagnostic Reports No Data Provided for This Section Consultation Notes No Data Provided for This Section Discharge Summaries No Data Provided for This Section History and Physicals No Data Provided for This Section Vital Signs Vital Sign Value Date Comments Source Systolic (mm Hg) 161 02/28/2019 Medical Group Diastolic (mm Hg) 105 02/28/2019 Medical Group Heart Rate 82 02/28/2019 Medical Grou p Temperature Oral (F) 98.1 F 02/28/2019 [facility]i [facility] Group Height 185.42 cm 02/28/2019 Medical Gr[facility] p Weight 112.727 02/28/2019 [facility] p BMI Calculated 32.79 02/28/2019 Medical Gr oup Encounters Location Location Encounter Encounter Reason Attending ADM AL Stat us Source Details Type Number For Provider Date Date Visit Outpatient [id number] [place] [facility] Outpatient [id number] [place] 02/28 03/01 [facility] Procedures No Data Provided for This Section Assessment and Plan No Data Provided for This Section Plan of Care No Data Provided for This Section Social History Social History Date Source Social History TypeResponse 02/28/2019 [facility] Alcohol Current, Type Liquor. Frequency: 1-2 times per month. Employment/School Status: Unemployed. Substance Abuse Use: Current. Type: Marijuana. Recreational Drug Route: In haled. Smoking Status Current every day smoker; Type: Cigarett es; Lives with someone who smokes; Cigarette Smoking Last 365 Days Yes; Reg Smoking Cessation Counseling No entered on: 02/28/19 Family History No Data Provided for This Section Advance Directives No Data Provided for This Section Functional Status No Data Provided for This Section
--- OUTSIDE RECORDS SUMMARY | 2019-11-26 11:15 | XMS REPORT | Continuity of Care Document ---
:[address] [facility] t Address [address] [place] [address] Care Team Providers Name Role Phone Lori Attending Clinician Payers Payer Name Policy Type Policy Number Effective Date Expiration Date S ource Problems Condition Condition Condition Status Onset Resolution Last Treating Co mments Source Name Details Category Date Date Treatment Clinician Date Asthma Problem Active 2019-03-03 Memor ia (disorder) 01:36:30 l Asthma [place] (disorder) Active Problem 03/03/2019 [facility] Simple Problem Active 2019-03-03 Memor ia obesity 01:36:30 l (disorder) Simple Herm vazquez obesity (disorder) Active Problem 03/03/2019 [facility] Allergies, Adverse Reactions, Alerts Allergy Allergy Status Severity Reaction(s) Onset Inactive Treating Comm ents Source Name Type Date Date Clinician codeine DA Active [place] 2018-02 [facility] 04-11 [facility] codeine codeine Active Thom Armstrong Social History Social Habit Start Date Stop Date Quantity Comments Source Social History 2019-02-28 2019-02-28 Leisa vivar 16:57:58 16:57:58 Medications Ordered Filled Start Stop Current Ordering Indication Dosage Frequency Signature Comments Components Source Medication Medication Date Date Medication? Clinician (SIG) Name Name lisinopril Yes 40 mg = 1 Me moria 40 mg oral 1-15 tab, PO, l tablet 17:19: Daily, # Nathaniel 00 90 tab, 0 Refill(s), Pharmacy: [facility] Fluticasone 0 Yes 1 spray, Me moria propionate 1-15 NASAL, l 0.05 17:19: BID, # 16 [place] MG/ACTUAT 00 gm, 0 Metered Refill(s), Dose Nasal Pharmacy: [place] Ventolin Yes 2 puff, Memori a HFA 90 1-15 INHALER, l mcg/inh 17:18: QID, PRN Ronald n inhalation 00 wheezing, aerosol coughing, with or adapter shortness of breath, # 1 ea, 0 Refill(s), Pharmacy: [facility] 297 Esomeprazol Yes 40 mg = 1 M emoria e 40 MG 1-15 cap, PO, l Enteric 17:18: Daily, # Ronald n Coated 00 90 tab, 1 Capsule Refill(s), Pharmacy: [facility] Ventolin No INHALER, Memor ia HFA 90 1-15 PRN l mcg/inh 16:58: wheezing, Rosa Elena nn inhalation 00 coughing, aerosol or with shortness adapter of breath Esomeprazol 0 No 40 mg = 1 M emoria e 40 MG 1-15 cap, PO, l Enteric 16:58: Daily Nathaniel Coated 00 Capsule Vital Signs Vital Name Observation Time Observation Value Comments Source Systolic (mm Hg) 2019-02-28 16:53:00 Qamar Armstrong Diastolic (mm Hg) 2019-02-28 16:53:00 Mem oriюлия Armstrong Heart Rate 2019-02-28 16:53:00 [facility] Temperature Oral (F) 2019-02-28 16:53:00 98.1 F [facility] Height 2019-02-28 16:53:00 185.42 cm [facility] Weight 2019-02-28 16:53:00 [facility] BMI Calculated 2019-02-28 16:53:00 Marina Sears Procedures This patient has no known procedures. Encounters Start End Encounter Admission Attending Care Care Encounter Source Date/Time Date/Time Type Type Clinicians Facility Department ID 2019-02-28 2019-02-28 Outpatient EPHRAIM Sandoval [facility] [id number] 11:00:00 23:59:59 Brenton 00 Results Test Description Test Time Test Comments Results Result Comments Source GLUBED 2019-04-11 11:11:00 Test Item Value Reference Range Interpretation Comme nts GLUBED (test code = GLUBED) 370 MG/DL 74-106 H [id number] 05:57:00 Test Item Value Reference Range Interpretation Comments GLUBED (test code = GLUBED) 289 MG/DL 74-106 H COMPREHENSIVE METABOLIC [id number] 05:17:00 Test Item Value Reference Range Interpretation Comments SODIUM (test code = 131 mmol/L 137-145 L NA) POTASSIUM (test code = 4.1 mmol/L 3.4-5.0 N K) CHLORIDE (test code = 99 mmol/L 98-107 N CL) CARBON DIOXIDE (test 21 mmol/L 22-30 L code = CO2) GLUCOSE (test code = 289 mg/dL 74-106 H GLU) BLOOD UREA NITROGEN 11 mg/dL 9-20 N (test code = BUN) GLOMERULAR FILTRATION 124 >60 The es timated RATE (test code = GFR) glome rular filtration rate is compute d usingpatient ra ce, age (>18), sex, and serum creatinin e. If anyof the neede d data elements are mi ssing the Laboratory cannot compute an jeni mation of the glomerul ar filtration rate . CREATININE (test code 0.7 mg/dL 0.7-1.3 N = CREAT) TOTAL PROTEIN (test 7.1 g/dL 6.3-8.2 N code = PROT) ALBUMIN (test code = 4.1 g/dL 3.5-5.0 N ALB) CALCIUM (test code = 9.0 mg/dL 8.4-10.2 N CA) BILIRUBIN TOTAL (test 0.7 mg/dL 0.2-1.3 N code = BILT) BILIRUBIN CONJUGATED 0 mg/dL 0-0.3 N ~~~~~~~ ~~~~~~~~~~~~~~ (test code = BILCON) ~~~~~~~ ~~~~~~~~~~~~~~ ~~~~~~~~~~~~~~~ ~~~CON JUGATED BILIRUB IN IS THE REPLACEMENT ASSAY FOR DIRECTBILIRUBIN .~~~~~ ~~~~~~~~~~~~~~~ ~~~~~~ ~~~~~~~~~~~~~~~ ~~~~~~ ~~~~~~~~~~~~~ BILIRUBIN UNCONJUGATED 0.4 mg/dL 0-1.1 N (test code = BILUNC) SGOT/AST (test code = 88 U/L 15-46 H AST) SGPT/ALT (test code = 119 U/L 13-69 H ALT) ALKALINE PHOSPHATASE 70 U/L 38-126 N (test code = ALKP) [id number] 05:17:00 Test Item Value Reference Range Interpretation Comments MAGNESIUM (test code = MAG) 1.4 mg/dL 1.6-2.3 L COMPREHENSIVE METABOLIC [id number] 05:13:00 Test Item Value Reference Range Interpretation Comments SODIUM (test code = 131 mmol/L 137-145 L NA) POTASSIUM (test code = 4.1 mmol/L 3.4-5.0 N K) CHLORIDE (test code = 99 mmol/L 98-107 N CL) CARBON DIOXIDE (test 21 mmol/L 22-30 L code = CO2) GLUCOSE (test code = 289 mg/dL 74-106 H GLU) BLOOD UREA NITROGEN 11 mg/dL 9-20 N (test code = BUN) GLOMERULAR FILTRATION 124 >60 The es timated RATE (test code = GFR) glome rular filtration rate is compute d usingpatient ra ce, age (>18), sex, and serum creatinin e. If anyof the neede d data elements are mi ssing the Laboratory cannot compute an jeni mation of the glomerul ar filtration rate . CREATININE (test code 0.7 mg/dL 0.7-1.3 N = CREAT) TOTAL PROTEIN (test 7.1 g/dL 6.3-8.2 N code = PROT) ALBUMIN (test code = 4.1 g/dL 3.5-5.0 N ALB) CALCIUM (test code = 9.0 mg/dL 8.4-10.2 N CA) BILIRUBIN TOTAL (test 0.7 mg/dL 0.2-1.3 N code = BILT) BILIRUBIN CONJUGATED 0 mg/dL 0-0.3 N ~~~~~~~ ~~~~~~~~~~~~~~ (test code = BILCON) ~~~~~~~ ~~~~~~~~~~~~~~ ~~~~~~~~~~~~~~~ ~~~CON JUGATED BILIRUB IN IS THE REPLACEMENT ASSAY FOR DIRECTBILIRUBIN .~~~~~ ~~~~~~~~~~~~~~~ ~~~~~~ ~~~~~~~~~~~~~~~ ~~~~~~ ~~~~~~~~~~~~~ BILIRUBIN UNCONJUGATED 0.4 mg/dL 0-1.1 N (test code = BILUNC) SGOT/AST (test code = 88 U/L 15-46 H AST) SGPT/ALT (test code = 119 U/L 13-69 H ALT) ALKALINE PHOSPHATASE 70 U/L 38-126 N (test code = ALKP) [id number] 05:13:00 Test Item Value Reference Range Interpretation Comments MAGNESIUM (test code = MAG) mg/dL 1.6-2.3 CBC W/AUTO [id number] 05:02:00 Test Item Value Reference Range Interpretation Comments WHITE BLOOD CELL (test code = 5.5 x10 3/uL 5.0-12.0 N WBC) RED BLOOD CELL (test code = 4.15 x10 6/uL 4.70-6.10 L RBC) HEMOGLOBIN (test code = HGB) 12.9 g/dL 14.0-18.0 L HEMATOCRIT (test code = HCT) 37.2 % 37.0-49.0 N MEAN CELL VOLUME (test code = 90 fL 80-94 N MCV) MEAN CELL HGB (test code = MCH) 31.1 pg 27-31 H MEAN CELL HGB CONCENTRATION 34.7 g/dL 33-37 N (test code = MCHC) RED CELL DISTRIBUTION WIDTH 12.9 % 11.5-15.5 N (test code = RDW) PLATELET COUNT (test code = 192 x10 3/uL 130-400 N PLT) MEAN PLATELET VOLUME (test code 10.4 fL 9.4-16.4 N = MPV) NEUTROPHIL % (test code = NT%) 43.8 % 43-65 N IMMATURE GRANULOCYTE % (test 0.4 % 0.0-2.0 N code = IG%) LYMPHOCYTE % (test code = LY%) 42.3 % 20.5-45.5 N MONOCYTE % (test code = MO%) 6.4 % 5.5-11.7 N EOSINOPHIL % (test code = EO%) 6.0 % 0.9-2.9 H BASOPHIL % (test code = BA%) 1.1 % 0.2-1.0 H NUCLEATED RBC % (test code = 0.0 % 0-1.0 N NRBC%) NEUTROPHIL # (test code = NT#) 2.41 x10 3/uL 2.2-4.8 N IMMATURE GRANULOCYTE # (test 0.02 x10 3/uL 0-0.03 N code = IG#) LYMPHOCYTE # (test code = LY#) 2.32 x10 3/uL 1.3-2.9 N MONOCYTE # (test code = MO#) 0.35 x10 3/uL 0.3-0.8 N EOSINOPHIL # (test code = EO#) 0.33 x10 3/uL 0.0-0.2 H BASOPHIL # (test code = BA#) 0.06 x10 3/uL 0.0-0.1 N [id number] 23:26:00 Test Item Value Reference Range Interpretation Comments GLUBED (test code = GLUBED) 270 MG/DL 74-106 H [id number] 18:08:00 Test Item Value Reference Range Interpretation Comments GLUBED (test code = GLUBED) 391 MG/DL 74-106 H [id number] 12:57:00 Test Item Value Reference Range Interpretation Comments GLUBED (test code = 403 MG/DL 74-106 HH Read Karla k to GLUBED) A VENOUS SPECIMEN SHOULD BE ORDERED FOR GLUCOSE VERIFIC ATION IF MED ICALLY NECESSARY. [id number] 11:31:00 Test Item Value Reference Range Interpretation Comments GLUBED (test code = GLUBED) 332 MG/DL 74-106 H [id number] 06:51:00 Test Item Value Reference Range Interpretation Comments GLUBED (test code = GLUBED) 350 MG/DL 74-106 H LIPID PROFILE (CORONARY RISK)2019-04-10 01:35:00 Test Item Value Reference Range Interpretation Comments TRIGLYCERIDES (test > 1500 mg/dL TRIGLYCE RIDES code = TRIG) REFERENCE RANGE:Normal: < 150 mg/dLBorderline High: 150-199 mg/dLHigh: 200- 499 mg/dLVery High: >=500 mg/dL CHOLESTEROL (test 243 mg/dL CHOLESTERO L code = CHOL) REFERENCE RANGE:DESIRABLE : < 200 mg/dLBORDER LINE: 200-239 mg/dLHI GH: >=240 mg/dL HDL CHOLESTEROL (test 20 mg/dL 40-59 L code = HDL) LIPOPROTEIN LDL (test < 30.00 mg/dL 32-99 L code = LDLC) CORONARY RISK FACTOR 12.15 (test code = RISK) CHOL/HD L RISK MALE: 1/2 AVG 3.43 FEMALE: 1/2 AVG 3.27 AVG 4.97 AVG 4.44 2X AVG 9.55 2X AVG 7 .05 3X A VG 23.39 3X AVG 11.04~~~~~~~~~~ ~~~~~ ~~~~~~~~~~~~~~~ ~~~~~ ~~~~~~~~~~~~~~~ ~~~~~ ~~~~~National Cholesterol Education (NCEP ) Guidelines:~~~~ ~~~~~ ~~~~~~~~~~~~~~~ ~~~~~ ~~~~~~~~~~~~~~~ ~~~~~ ~~~~~~~~~~~ HDL Cholesterol<4 0mg/d L: HDL Choleste rol (Major risk fac tor for CHD)>60mg/d L: HDL Cholesterol (Negative risk factor for CHD)40-59mg/dL: Borderline Risk * *LDL Cholesterol<1 00mg/ dL: Desirable L DL-C [id number] 0-159 mg/dL: Borderli ne High Risk LDL-C tefsnhkafgwjj65 0-189 mg/dL: High ris k LDL-C concentra tion HDL-LDL Cholest oliver is affected by a number of facto rs suchas smoking, age and sex.~~~~~~~~~~~ ~~~~~ ~~~~~~~~~~~~~~~ ~~~~~ ~~~~~~~~~~~~~~~ ~~~~~ ~~~~ LIPID PROFILE (CORONARY RISK)2019-04-10 01:22:00 Test Item Value Reference Range Interpretation Comments TRIGLYCERIDES (test mg/dL code = TRIG) CHOLESTEROL (test code 243 mg/dL CRISTA STEROL REFERENCE = CHOL) RANGE:DESIRABLE : < 200 mg/dLBORDERLINE : 200-239 mg/dLHI GH: >=240 mg/dL HDL CHOLESTEROL (test 20 mg/dL 40-59 L code = HDL) LIPOPROTEIN LDL (test mg/dL 32-99 code = LDLC) CORONARY RISK FACTOR 12.15 (test code = RISK) CHOL/HDL RISK MALE: 1/2 AVG 3.43 FEMALE: 1/2 AV G 3.27 AVG 4.97 AVG 4.44 2X AVG 9.55 2X AVG 7.05 3X AVG 23.39 3X AVG 11.04~~~~~~~~~~ ~~~~~~~ ~~~~~~~~~~~~~~~ ~~~~~~~ ~~~~~~~~~~~~~~~ ~~~~~~N ational Cholest oliver Education (NCEP ) Guidelines:~~~~ ~~~~~~~ ~~~~~~~~~~~~~~~ ~~~~~~~ ~~~~~~~~~~~~~~~ ~~~~~~~ ~~~~~ HDL Cholesterol<4 0mg/dL: HDL Cholesterol (Major risk factor for CHD)>60mg/dL: H DL Cholesterol (Ne gative risk factor for CHD)40-59mg/dL: Borderline Risk L DL Cholesterol<1 00mg/dL : Desirable LDL -C [id number] 0-159mg /dL: Borderline High Risk LDL-C eegjhwttturqz58 0-189mg /dL: High risk LDL-C concentration H DL-LDL Cholesterol is affected by a n umber of factors such as smoking, age an d sex.~~~~~~~~~~~ ~~~~~~~ ~~~~~~~~~~~~~~~ ~~~~~~~ ~~~~~~~~~~~~~~~ ~~~~~ HGBA1C - GLYCOSYLATED [id number] 00:29:00 Test Item Value Reference Range Interpretation Comments GLYCOSYLATED 10.3 % 0-5.9 H Current guideli ben HEMOGLOBIN (HA1C) recommend a treatment goal (test code = GLYHGB) of <7% fordiabetic patients. A1c may be overestimated i n diabeticpatient s exhibiting poor control an d who are alsoheterozygou s or homozygous for HgbS or HgbC. Totalgly cohemoglobin is a better ind icator of diabetic contro l inpatients with these hemo globin variants. - CT HEAD/BRAIN W/O [id number] 23:39:00 FAX: Irais Alcantara [phone] [place]: St: REG Name: HOPE CORNEJO [facility] : 1960 Age/S: 58/M [address] Unit: [id number] Loc: [place] [address] Phys: Irais River PRODUCTION OFFICER Acct: [id number] Dis Date: Status: REG ER PHONE #: [phone] Exam Date: 04/09/20192327 FAX #: [phone] Reason: headache, htn EXAMS: CPT CODE: [id number] CT HEAD/BRAIN W/O CONT 55050 Examination: Noncontrast head CT Indication: Headache Comparison: [...] 1 Signed Report (CONTINUED) FAX: Irais Alcantara [phone] [place]: St: REG Name: HOPE CORNEJO [facility] : 1960 Age/S: 58/M [address] Unit: [id number] Loc: [place] [address] Phys: Irais River NP Acct: [id number] Dis Date: Status: REG ER PHONE #: [phone] Exam Date: 04/09/2019 2328 FAX #: [phone] Reas on: headache, htn EXAMS: CPT CODE: [id number] CT HEAD/BRAIN W/O CONT 09813 <Continued> CC: Irais River NP Technologist: Christina Feliciaon; Nadeem Kendrick Trnscrd Dt/Tm: 04/09/2019 (7636) [email or web address] Orig Print D/T: S: 04/09/2019 (2342 PAGE 2 Signed ReportCOMPREHENSIVE METABOLIC [id number] 23:25:00 Test Item Value Reference Range Interpretation Comments SODIUM (test code = 129 mmol/L 137-145 L NA) POTASSIUM (test code = 4.4 mmol/L 3.4-5.0 N K) CHLORIDE (test code = 97 mmol/L 98-107 L CL) CARBON DIOXIDE (test 20 mmol/L 22-30 L code = CO2) GLUCOSE (test code = 563 mg/dL 74-106 HH Critica l Value GLU) reported toFirs t Name:[id number] Diana st Name:RESULTS RE AD BACK AND CHU Dillard C.LAB.MG, on 04/09/19, @ 232 4. OK TO REPORT BLOOD UREA NITROGEN 16 mg/dL 9-20 N (test code = BUN) GLOMERULAR FILTRATION 92 >60 The es timated RATE (test code = GFR) glome rular filtration rate is compute d usingpatient ra ce, age (>18), sex, and serum creatinin e. If anyof the neede d data elements are mi ssing the Laboratory cannot compute an jeni mation of the glomerul ar filtration rate . CREATININE (test code 0.9 mg/dL 0.7-1.3 N = CREAT) TOTAL PROTEIN (test 7.8 g/dL 6.3-8.2 N code = PROT) ALBUMIN (test code = 4.4 g/dL 3.5-5.0 N ALB) CALCIUM (test code = 8.9 mg/dL 8.4-10.2 N CA) BILIRUBIN TOTAL (test 0.8 mg/dL 0.2-1.3 N code = BILT) BILIRUBIN CONJUGATED 0 mg/dL 0-0.3 N ~~~~~~~ ~~~~~~~~~~~~~~ (test code = BILCON) ~~~~~~~ ~~~~~~~~~~~~~~ ~~~~~~~~~~~~~~~ ~~~CON JUGATED BILIRUB IN IS THE REPLACEMENT ASSAY FOR DIRECTBILIRUBIN .~~~~~ ~~~~~~~~~~~~~~~ ~~~~~~ ~~~~~~~~~~~~~~~ ~~~~~~ ~~~~~~~~~~~~~ BILIRUBIN UNCONJUGATED 0.4 mg/dL 0-1.1 N (test code = BILUNC) SGOT/AST (test code = 94 U/L 15-46 H AST) SGPT/ALT (test code = 117 U/L 13-69 H ALT) ALKALINE PHOSPHATASE 81 U/L 38-126 N (test code = ALKP) CBC W/AUTO [id number] 23:16:00 Test Item Value Reference Range Interpretation Comments WHITE BLOOD CELL (test code = 6.5 x10 3/uL 5.0-12.0 N WBC) RED BLOOD CELL (test code = 4.25 x10 6/uL 4.70-6.10 L RBC) HEMOGLOBIN (test code = HGB) 14.0 g/dL 14.0-18.0 N HEMATOCRIT (test code = HCT) 37.4 % 37.0-49.0 N MEAN CELL VOLUME (test code = 88 fL 80-94 N MCV) MEAN CELL HGB (test code = MCH) 32.9 pg 27-31 H MEAN CELL HGB CONCENTRATION 37.4 g/dL 33-37 H (test code = MCHC) RED CELL DISTRIBUTION WIDTH 12.6 % 11.5-15.5 N (test code = RDW) PLATELET COUNT (test code = 212 x10 3/uL 130-400 N PLT) MEAN PLATELET VOLUME (test code 10.0 fL 9.4-16.4 N = MPV) NEUTROPHIL % (test code = NT%) 57.5 % 43-65 N IMMATURE GRANULOCYTE % (test 0.2 % 0.0-2.0 N code = IG%) LYMPHOCYTE % (test code = LY%) 31.2 % 20.5-45.5 N MONOCYTE % (test code = MO%) 6.2 % 5.5-11.7 N EOSINOPHIL % (test code = EO%) 4.0 % 0.9-2.9 H BASOPHIL % (test code = BA%) 0.9 % 0.2-1.0 N NUCLEATED RBC % (test code = 0.0 % 0-1.0 N NRBC%) NEUTROPHIL # (test code = NT#) 3.72 x10 3/uL 2.2-4.8 N IMMATURE GRANULOCYTE # (test 0.01 x10 3/uL 0-0.03 N code = IG#) LYMPHOCYTE # (test code = LY#) 2.02 x10 3/uL 1.3-2.9 N MONOCYTE # (test code = MO#) 0.40 x10 3/uL 0.3-0.8 N EOSINOPHIL # (test code = EO#) 0.26 x10 3/uL 0.0-0.2 H BASOPHIL # (test code = BA#) 0.06 x10 3/uL 0.0-0.1 N - XR CHEST 1 [id number] 23:12:00 FAX: Irais Alcantara [phone] [place]: St: REG Name: HOPE CORNEJO [facility] : 1960 Age/S: 58/M [address] Unit#: [id number] Loc: [place] [address] Phys: Irais River PRODUCTION OFFICER Acct: [id number] Dis Date: Status: REG ER PHONE #: [phone] Exam Date: 04/09/2019 0896 FAX #: [phone] Reason: elevated bp EXAMS: CPT CODE: [id number] XR CHEST 1 V 09399 Examination: One view chest x-ray Location code: H60 Comparison: None Discussion: Clinical history is remarkable for elevated blood pressure. Heart is normal in size. Lungs are clear of consolidatinginfiltrates. No masses, nodules or effusions identified. Impression: 1. Normal one view chest x-ray. at 2312 Reported and signed by: Marc Kebede MD CC: Irais River NP Technologist: LAWSON BORJAS Trnscrd Date/Time/By: 04/09/2019 (2311) : By: [email or web address] PAGE 1 Signed Report FAX: Irais Alcantara [phone] [place]: St: REG -- Name: HOPE CORNEJO [facility] : 1960 Age/S: 58/M [address] Unit #: [id number] Loc: [place] [address] Phys: Irais River NP Acct: [id number] Dis Date: Status: REG ER PHONE #: [phone] Exam Date: 04/09/20195 FAX #: [phone] Reason: elevatedbp EXAMS: CPT CODE: [id number] XR CHEST 1 V 59684 <Continued> Orig Print D/T: S: 04/09/2019 (188)PAGE 2 Signed Report CBC W/AUTO [id number] 23:07:00 Test Item Value Reference Range Interpretation Comments WHITE BLOOD CELL (test code = 6.5 x10 3/uL 5.0-12.0 N WBC) RED BLOOD CELL (test code = 4.25 x10 6/uL 4.70-6.10 L RBC) HEMOGLOBIN (test code = HGB) 14.0 g/dL 14.0-18.0 N HEMATOCRIT (test code = HCT) 37.4 % 37.0-49.0 N MEAN CELL VOLUME (test code = 88 fL 80-94 N MCV) MEAN CELL HGB (test code = MCH) 32.9 pg 27-31 H MEAN CELL HGB CONCENTRATION g/dL 33-37 H (test code = MCHC) RED CELL DISTRIBUTION WIDTH 12.6 % 11.5-15.5 N (test code = RDW) PLATELET COUNT (test code = 212 x10 3/uL 130-400 N PLT) MEAN PLATELET VOLUME (test code 10.0 fL 9.4-16.4 N = MPV) NEUTROPHIL % (test code = NT%) 57.5 % 43-65 N IMMATURE GRANULOCYTE % (test 0.2 % 0.0-2.0 N code = IG%) LYMPHOCYTE % (test code = LY%) 31.2 % 20.5-45.5 N MONOCYTE % (test code = MO%) 6.2 % 5.5-11.7 N EOSINOPHIL % (test code = EO%) 4.0 % 0.9-2.9 H BASOPHIL % (test code = BA%) 0.9 % 0.2-1.0 N NUCLEATED RBC % (test code = 0.0 % 0-1.0 N NRBC%) NEUTROPHIL # (test code = NT#) 3.72 x10 3/uL 2.2-4.8 N IMMATURE GRANULOCYTE # (test 0.01 x10 3/uL 0-0.03 N code = IG#) LYMPHOCYTE # (test code = LY#) 2.02 x10 3/uL 1.3-2.9 N MONOCYTE # (test code = MO#) 0.40 x10 3/uL 0.3-0.8 N EOSINOPHIL # (test code = EO#) 0.26 x10 3/uL 0.0-0.2 H BASOPHIL # (test code = BA#) 0.06 x10 3/uL 0.0-0.1 N TROPONIN I [id number] 23:05:00 Test Item Value Reference Range Interpretation Comments TROPONIN I RAPID 0.00 ng/mL 0.00-0.079 N ISTAT (test code = TROPONIN I TROPIRAP) CRITERIA0.00-0. 08 ng/mL - Negative>0.08 n g/mL - Positive The us e of serial sampling and te sting protocol is are commended practice.An campbell vated troponin level alone is often not suffi cient fordiagnosis of myocardial infarction. Tro ponin results obtaine d by different assay s may vary.Evaluation of the extent of myoca rdial damage based on increase of troponin would be valid only if similar methodology is used.
--- NOTE | 2019-11-26 11:39 | RAD REPORT ---
EXAM DESCRIPTION: CT - Abdomen Pelvis W Contrast - 11/26/2019 11:13 am CLINICAL HISTORY: Abdominal pain COMPARISON: May 2019 TECHNIQUE: Computed axial tomography of the abdomen pelvis was obtained. 100 cc Isovue-300 was admin istered intravenously. Oral contrast was not requested which limits evaluation of bowel. All CT scans are performed using dose optimization technique as appropriate and may include automated exposure control or mA/KV adjustment according to patient size. FINDINGS: Hepatomegaly. Fatty infiltration of liver. Cholelithiasis without gallbladder wall thicken ing. Spleen, pancreas, adrenal and kidneys appear unremarkable. An area of wall thickening involves the distal sigmoid colon without significant change from the prio r exam. Diverticula stem from the colon without evidence diverticulitis. Normal appendix. Small inguinal hernias contain fat. Spondylosis involves lumbar spine resulting in s zarina stenosis Mild dilatation of several loops of jejunum IMPRESSION: Area of wall thickening involves the distal sigmoid colon. This may represent incomplete distention or mass. Direct visualization is recommended. Cholelithiasis without evidence cholecystitis Hepatomegaly with fatty infiltration Mild dilatation of several loops of jejunum may indicate an enteritis
[2019-11-26] MEDS ORDERED: INSULIN -REGULAR HUMAN 50 UNIT/0.5 ML ML ONE (11:50)
--- NOTE | 2019-11-26 12:11 | ER ---
Nurse's Notes [facility] Name: Gabriel Walker Age: 59 yrs Sex: Male : 1960 Arrival Date: 11/26/2019 Time: 10:01 Bed 5 Private MD: Diagnosis: Enteritis;Unspecified hemorrhoids Presentation: 11/25 10:41 Chief complaint: Patient states: upper abdominal pain and bloating, diarrhea x 1 month, tw2 i think its my diverticulitis flaring up, also i have hemorrhoids that have been bleeding for 2 days. Coronavirus screen: At this time, the client does not indicate any symptoms associated with coronavirus-19. Ebola Screen: Patient denies travel to an Ebola-affected area in the 21 days before illness onset. Initial Sepsis Screen: Does the patient meet any 2 criteria? No. Patient's initial sepsis screen is negative. Does the patient have a suspected source of infection? No. Patient's initial sepsis screen is negative. Risk Assessment: Do you want to hurt yourself or someone else? Patient reports no desire to harm self or others. Onset of symptoms was November 26, 2019. 10:41 Method Of Arrival: Ambulatory tw2 10:41 Acuity: PARVIN 3 tw2 Triage Assessment: 10:41 General: Appears in no apparent distress. uncomfortable, obese, well groomed, Behavior tw2 is calm, cooperative, appropriate for age. Pain: Complains of pain in abdomen. Historical: - Allergies: 10:44 Codeine; "makes nauseous"; tw2 - Home Meds: 10:44 Nexium 40 mg oral cpDR 1 cap once daily [Active]; glipizide 10 mg oral tab 1 tab once tw2 daily [Active]; lisinopril 40 mg oral tab [Active]; gabapentin Oral [Active]; - PMHx: 10:44 Diabetes - NIDDM; Hypertension; GERD; tw2 - PSHx: 10:44 laminectomy, spinal fusion lower back; tw2 - Immunization history:: Adult Immunizations. - Social history:: Smoking status: . Screenin:25 Abuse screen: Denies threats or abuse. Nutritional screening: No deficits noted. tw2 Tuberculosis screening: No symptoms or risk factors identified. Fall Risk None identified. Assessment: 10:25 General: Appears in no apparent distress. obese, well groomed, Behavior is calm, tw2 cooperative, appropriate for age. Pain: Complains of pain in abdomen. Neuro: Level of Consciousness is awake, alert, obeys commands, Oriented to person, place, time, situation. Cardiovascular: Heart tones S1 S2 Capillary refill < 3 seconds Patient's skin is warm and dry. Respiratory: Airway is patent Respiratory effort is even, unlabored, Respiratory pattern is regular, symmetrical, Breath sounds are clear bilaterally. GI: Abdomen is round distended, Bowel sounds present X 4 quads. Reports lower abdominal pain, upper abdominal pain, bloating, also I have some hemorrhoids that are bothering me as well. : No signs and/or symptoms were reported regarding the genitourinary system. EENT: No signs and/or symptoms were reported regarding the EENT system. Derm: No signs and/or symptoms reported regarding the dermatologic system. Musculoskeletal: Range of motion: intact in all extremities. 11:30 Reassessment: Patient appears in no apparent distress at this time. No changes from tw2 previously documented assessment. Patient and/or family updated on plan of care and expected duration. Pain level reassessed. Patient is alert, oriented x 3, equal unlabored respirations, skin warm/dry/pink. 12:33 Reassessment: Patient appears in no apparent distress at this time. No changes from tw2 previously documented assessment. Patient and/or family updated on plan of care and expected duration. Pain level reassessed. Patient is alert, oriented x 3, equal unlabored respirations, skin warm/dry/pink. Vital Signs: 10:41 BP 166 / 100; Pulse 92; Resp 16; Temp 98.1(TE); Pulse Ox 95% on R/A; Weight 111.13 kg tw2 (R); Height 6 ft. 0 in. (182.88 cm); Pain 3/10; 11:35 BP 164 / 100; Pulse 73; Resp 17; Pulse Ox 95% on R/A; tw2 11:58 Pain 3/10; tw2 12:33 BP 160 / 102; Pulse 71; Resp 17; Pulse Ox 95% on R/A; tw2 10:41 Body Mass Index 33.23 (111.13 kg, 182.88 cm) tw2 ED Course: 10:01 Patient arrived in ED. as 10:06 Bed in low position. Call light in reach. Pulse ox on. NIBP on. tw2 10:09 Chucho Barrett PA is PHCP. jr8 10:09 Jann De La Garza MD is Attending Physician. jr8 10:25 Sabrina Baker, RN is Primary Nurse. tw2 10:25 Inserted saline lock: 20 gauge in right antecubital area, using aseptic technique. tw2 Blood collected. 10:42 Triage completed. tw2 10:42 Arm band placed on. tw2 11:14 CT Abd/Pelvis - IV Contrast Only In Process Unspecified. EDMS 12:09 Tomas Blount MD is Referral Physician. jr8 12:34 No provider procedures requiring assistance completed. IV discontinued, intact, tw2 bleeding controlled, No redness/swelling at site. Pressure dressing applied. Administered Medications: 10:48 Drug: Zofran (Ondansetron) 4 mg Route: IVP; Site: right antecubital; tw2 11:58 Follow up: Response: No adverse reaction tw2 10:50 Drug: morphine 4 mg {Note: RASS 0.} Route: IVP; Site: right antecubital; tw2 11:58 Follow up: Pain 3/10 Adult; Response: No adverse reaction; Pain is unchanged, physician tw2 notified; RASS: Alert and Calm (0) 11:40 Drug: Insulin Regular Human 10 units {Co-Signature: tw2 (Sabrina Baker RN).} Route: IVP; jl7 Site: right antecubital; 12:31 Follow up: Response: Blood sugar is lowered tw2 Point of Care Testing: Blood Glucose: 12:32 Blood Glucose: 124 mg/dL; tw2 Ranges: Outcome: 12:10 Discharge ordered by . jr8 12:34 Discharged to home ambulatory. tw2 12:34 Condition: stable 12:34 Discharge instructions given to patient, Instructed on discharge instructions, follow up and referral plans. no drinking with medication, no driving heavy equipment, medication usage, Demonstrated understanding of instructions, follow-up care, medications, Prescriptions given X 4. 12:34 Patient left the ED. tw2 Signatures: Dispatcher [employer] EDMS Nicol Hoyt Josh, PA PA jr8 Sabrina Baker RN RN tw2 Davis Bailey RN RN jl7 Sabrina Baker RN tw2 Corrections: (The following items were deleted from the chart) 10:50 10:50 morphine 4 mg IVP in right antecubital tw2 tw2
--- NOTE | 2019-11-26 12:11 | EDPHYS ---
Physician Documentation [facility] Name: Gabriel Walker Age: 59 yrs Sex: Male : 1960 Arrival Date: 11/26/2019 Time: 10:01 Bed 5 Private MD: ED Physician Jnan De La Garza HPI: 11/25 11:10 This 59 yrs old Male presents to ER via Ambulatory with complaints of jr8 diverticulitis. 11:10 The patient presents with abdominal pain that is diffuse. Onset: The symptoms/episode jr8 began/occurred gradually, 2 day(s) ago. The symptoms do not radiate. Associated signs and symptoms: none. The symptoms are described as dull. Modifying factors: The symptoms are alleviated by nothing, the symptoms are aggravated by nothing. Severity of pain: At its worst the pain was moderate in the emergency department the pain is unchanged. The patient has experienced a previous episode. The patient has not recently seen a physician. Patient reports history of diverticulitis. Stated that he has had similar pain in past. Feels bloated and with bilateral upper and mid abdominal pain which was like his diverticulitis in past. Stated that he is also having bleeding hemorrhoids that he cannot stop as well but denies bloody bowel movements . Historical: - Allergies: 10:44 Codeine; "makes nauseous"; tw2 - Home Meds: 10:44 Nexium 40 mg oral cpDR 1 cap once daily [Active]; glipizide 10 mg oral tab 1 tab once tw2 daily [Active]; lisinopril 40 mg oral tab [Active]; gabapentin Oral [Active]; - PMHx: 10:44 Diabetes - NIDDM; Hypertension; GERD; tw2 - PSHx: 10:44 laminectomy, spinal fusion lower back; tw2 - Immunization history:: Adult Immunizations. - Social history:: Smoking status: . ROS: 11:10 Eyes: Negative for injury, pain, redness, and discharge, ENT: Negative for injury, jr8 pain, and discharge, Neck: Negative for injury, pain, and swelling, Cardiovascular: Negative for chest pain, palpitations, and edema, Respiratory: Negative for shortness of breath, cough, wheezing, and pleuritic chest pain, Back: Negative for injury and pain, MS/Extremity: Negative for injury and deformity, Skin: Negative for injury, rash, and discoloration, Neuro: Negative for headache, weakness, numbness, tingling, and seizure. 11:10 Abdomen/GI: Positive for abdominal pain, diarrhea, abdominal distension, rectal bleeding, Negative for nausea, vomiting, constipation, abdominal cramps, hematemesis, black/tarry stool. Exam: 11:10 Eyes: Pupils equal round and reactive to light, extra-ocular motions intact. Lids and jr8 lashes normal. Conjunctiva and sclera are non-icteric and not injected. Cornea within normal limits. Periorbital areas with no swelling, redness, or edema. ENT: Nares patent. No nasal discharge, no septal abnormalities noted. Tympanic membranes are normal and external auditory canals are clear. Oropharynx with no redness, swelling, or masses, exudates, or evidence of obstruction, uvula midline. Mucous membranes moist. Neck: Trachea midline, no thyromegaly or masses palpated, and no cervical lymphadenopathy. Supple, full range of motion without nuchal rigidity, or vertebral point tenderness. No Meningismus. Cardiovascular: Regular rate and rhythm with a normal S1 and S2. No gallops, murmurs, or rubs. Normal PMI, no JVD. No pulse deficits. Respiratory: Lungs have equal breath sounds bilaterally, clear to auscultation and percussion. No rales, rhonchi or wheezes noted. No increased work of breathing, no retractions or nasal flaring. Back: No spinal tenderness. No costovertebral tenderness. Full range of motion. Skin: Warm, dry with normal turgor. Normal color with no rashes, no lesions, and no evidence of cellulitis. MS/ Extremity: Pulses equal, no cyanosis. Neurovascular intact. Full, normal range of motion. Neuro: Awake and alert, GCS 15, oriented to person, place, time, and situation. Cranial nerves II-XII grossly intact. Motor strength 5/5 in all extremities. Sensory grossly intact. Cerebellar exam normal. Normal gait. 11:10 Abdomen/GI: Inspection: obese Bowel sounds: active, all quadrants, Palpation: soft, in all quadrants, mild abdominal tenderness, in the right upper quadrant and left upper quadrant, severe abdominal tenderness, in all quadrants, mass, is not appreciated, rebound tenderness, is not appreciated, voluntary guarding, is elicited in all quadrants, involuntary guarding, is not appreciated, no appreciated organomegaly, Indicators: McBurney's point is not tender, Raya's sign is negative, Rovsing's sign is negative. Vital Signs: 10:41 BP 166 / 100; Pulse 92; Resp 16; Temp 98.1(TE); Pulse Ox 95% on R/A; Weight 111.13 kg tw2 (R); Height 6 ft. 0 in. (182.88 cm); Pain 3/10; 11:35 BP 164 / 100; Pulse 73; Resp 17; Pulse Ox 95% on R/A; tw2 11:58 Pain 3/10; tw2 12:33 BP 160 / 102; Pulse 71; Resp 17; Pulse Ox 95% on R/A; tw2 10:41 Body Mass Index 33.23 (111.13 kg, 182.88 cm) tw2 MDM: 10:10 Patient medically screened. jr8 12:08 Data reviewed: vital signs, nurses notes, lab test result(s), radiologic studies, CT jr8 scan, and as a result, I will discharge patient. Data interpreted: Pulse oximetry: on room air is 95 %. Interpretation: normal. Counseling: I had a detailed discussion with the patient and/or guardian regarding: the historical points, exam findings, and any diagnostic results supporting the discharge/admit diagnosis, lab results, radiology results, the need for outpatient follow up, a security developer, to return to the emergency department if symptoms worsen or persist or if there are any questions or concerns that arise at home. Response to treatment: the patient's symptoms have mildly improved after treatment. Special discussion: Based on the patient's Hx, exam, and Dx evaluation, there is no indication for emergent surgery or inpatient Tx. It is understood by the patient/guardian that if the Sx's persist or worsen they need to return immediately for re-evaluation. ED course: Patient did not want me to look at hemorrhoids at this time. Just wanted to see if we could prescribe some medication. Will start him on ProctoFoam or an alike medication. 11/25 10:09 Order name: Basic Metabolic Panel; Complete Time: 11:24 jr8 11/25 10:09 Order name: CBC with Diff; Complete Time: 10:46 jr8 11/25 10:09 Order name: Hepatic Function; Complete Time: 11:24 jr8 11/25 10:09 Order name: Lipase; Complete Time: 11:24 8 11/25 10:39 Order name: CT Abd/Pelvis - IV Contrast Only; Complete Time: 11:51 8 11/25 10:09 Order name: IV Saline Lock; Complete Time: 10:25 11/25 10:09 Order name: Labs collected and sent; Complete Time: 10:25 jr8 Administered Medications: 10:48 Drug: Zofran (Ondansetron) 4 mg Route: IVP; Site: right antecubital; tw2 11:58 Follow up: Response: No adverse reaction tw2 10:50 Drug: morphine 4 mg {Note: RASS 0.} Route: IVP; Site: right antecubital; tw2 11:58 Follow up: Pain 3/10 Adult; Response: No adverse reaction; Pain is unchanged, physician tw2 notified; RASS: Alert and Calm (0) 11:40 Drug: Insulin Regular Human 10 units {Co-Signature: tw2 (Sabrina Baker RN).} Route: IVP; jl7 Site: right antecubital; 12:31 Follow up: Response: Blood sugar is lowered tw2 Point of Care Testing: Blood Glucose: 12:32 Blood Glucose: 124 mg/dL; tw2 Ranges: Critical Glucose Levels:Adult <50 mg/dl or >400 mg/dl <40 mg/dl or >180 mg/dl Disposition: 15:06 Co-signature as Attending Physician, Jann De La Garza MD I agree with the assessment and dee plan of care. Disposition: 11/26/19 12:10 Discharged to Home. Impression: Enteritis, Unspecified hemorrhoids. - Condition is Stable. - Discharge Instructions: High-Fiber Diet, Hemorrhoids, Disposable Sitz Bath. - Prescriptions for Bentyl 20 mg Oral Tablet - take 1 tablet by ORAL route every 6 hours As needed; 20 tablet. Cipro 500 mg Oral Tablet - take 1 tablet by ORAL route every 12 hours for 10 days; 20 tablet. Flagyl 500 mg Oral Tablet - take 1 tablet by ORAL route every 6 hours for 10 days; 40 tablet. Anusol- HC 25 mg Rectal Suppository - insert 1 suppository by RECTAL route every 12 hours As needed; 20 suppository. - Medication Reconciliation Form, Thank You Letter, Antibiotic Education, Prescription Opioid Use form. - Follow up: Tomas Blount MD; When: 5 - 6 days; Reason: Recheck today's complaints, Continuance of care, Re-evaluation by your physician. - Problem is new. - Symptoms have improved. Signatures: Dispatcher [employer] Jann Diaz MD MD cha Roszak, Josh, PA PA jr8 Sabrina Baker RN RN tw2 Davis Bailey RN RN jl7 Sabrina Baker RN tw2 Corrections: (The following items were deleted from the chart) 12:34 12:10 11/26/2019 12:10 Discharged to Home. Impression: Enteritis; Unspecified tw2 hemorrhoids. Condition is Stable. Forms are Medication Reconciliation Form, Thank You Letter, Antibiotic Education, Prescription Opioid Use. Follow up: Tomas Blount; When: 5 - 6 days; Reason: Recheck today's complaints, Continuance of care, Re-evaluation by your physician. Problem is new. Symptoms have improved. jr8
[2019-11-26 12:43] VITALS: TEMP 98.1; O2SAT 95
[2019-11-26 12:49] VITALS: BP 160/102
== END 2019-11-26 12:34 | disposition home or self-care (01) ==
LOC: ER 09:59
DX: K64.9 Unspecified hemorrhoids (principal); I10 Essential (primary) hypertension; E11.9 Type 2 diabetes mellitus without complications; Z88.5 Allergy status to narcotic agent
CPT/HCPCS: 85025; 80048; 36415; 82947; 80076; 83690; 74177; 96375; 96374; 99284; Q9967; J2405

== ENCOUNTER 2020-11-21 10:47 | Emergency (ER) | payer OTHER ==
[2020-11-21] MEDS ORDERED: MORPHINE 4 MG/ML SYR ONE (11:22)
[2020-11-21] MEDS ORDERED: ONDANSETRON 4 MG/2 ML VIAL ONE (11:22)
[2020-11-21 11:23] LABS: Protime INR 0.97
[2020-11-21 11:25] LABS: Absolute Lymphocytes (CBC) 1.6 K/uL (0.7-4.9); Basophils % 0.9 % (0-1.3); Hematocrit 35.5 % (39.6-49.0); Lymphocytes % 22.8 % (15.3-44.8); MPV 7.6 fL (7.6-11.3); RBC Red Blood Cell Count 3.95 M/uL (4.33-5.43)
[2020-11-21 11:49] LABS: AST/SGOT 52 U/L (15-37); Albumin 4.1 g/dL (3.4-5.0); Alkaline Phosphatase 52 U/L (45-117); Bicarbonate 25 mmol/L (21-32); Bilirubin Direct 0.1 mg/dL (0-0.2); Bilirubin Total 0.6 mg/dL (0.2-1.0); Glucose Level 91 mg/dL (74-106); Magnesium 1.9 mg/dL (1.8-2.4); NT PRO-BNP 18 pg/mL (<125); Potassium 4.5 mmol/L (3.5-5.1); Protein, Total 8.3 g/dL (6.4-8.2); Sodium Level 140 mmol/L (136-145); Troponin (Emerg Dept Use Only) < 0.02 ng/mL (0.0-0.045)
--- NOTE | 2020-11-21 12:14 | RAD REPORT ---
EXAM DESCRIPTION: RAD - Chest Single View - 11/21/2020 11:47 am CLINICAL HISTORY: CHEST PAIN Chest pain. COMPARISON: Angio Aorta For Dissection dated 11/21/2020 FINDINGS: Portable technique limits examination quality. The lungs are grossly clear. The heart is normal in size. No displaced fractures. IMPRESSION: No acute intrathoracic process suspected.
--- NOTE | 2020-11-21 12:31 | RAD REPORT ---
EXAM DESCRIPTION: CT - Angio Aorta For Dissection - 11/21/2020 12:04 pm CLINICAL HISTORY: Chest pain radiating to the back. CHEST PAIN COMPARISON: No comparisons TECHNIQUE: CT angiography of the aorta was performed with MIPs. All CT scans are performed using dose optimization technique as appropriate and may include automated exposure control or mA/KV adjustment according to patient size. FINDINGS: A left aortic arch is present with normal branching pattern of the great vessels.No acute aortic finding is seen such as aneurysm, penetrating ulcer or dissection. The celiac axis, SMA, JAJA and renal arteries are patent. No evidence of pulmonary embolism. The lungs are clear. The liver demonstrates no focal mass or biliary dilatation.The gallbladder contains several gallstone s appears distended.The spleen, pancreas, adrenal glands and kidneys are within normal limits for art erial phase imaging.Small fat containing umbilical hernia. No bowel obstruction, free fluid or abscess.Moderate stool is present throughout the colon.No patholo gic enlarged lymphadenopathy identified. Moderate lumbar degenerative changes are present. IMPRESSION: No acute aortic finding is demonstrated. Distended gallbladder with cholelithiasis present. Gallbladder ultrasound followup would be recommend ed.
[2020-11-21 12:37] LABS: ALT/SGPT 80 U/L (12-78); BUN Blood Urea Nitrogen 13 mg/dL (7-18)
--- NOTE | 2020-11-21 13:36 | RAD REPORT ---
EXAM DESCRIPTION: US - Abdomen Exam Limited - 11/21/2020 1:13 pm CLINICAL HISTORY: Abdominal pain. FINDINGS: The gallbladder wall is not thickened. Multiple gallstones The biliary tree is normal caliber. IMPRESSION: Cholelithiasis without evidence of cholecystitis
--- NOTE | 2020-11-21 15:24 | EDPHYS ---
Physician Documentation [facility] Name: Gabriel Walker Age: 59 yrs Sex: Male : 1960 Arrival Date: 11/21/2020 Time: 10:48 Bed 7 Private MD: ED Physician Jayden Albarran HPI: 11/21 10:50 This 59 yrs old Male presents to ER via Unassigned with complaints of Chest rn pain. 10:50 The patient or guardian reports chest pain that is located primarily in the chest rn diffusely. Onset: 40 minute(s) ago. The pain does not radiate. Associated signs and symptoms: Pertinent positives: diaphoresis, nausea, Pertinent negatives: abdominal pain, shortness of breath, syncope, vomiting. The chest pain is described as crushing, a heaviness. Duration: The patient or guardian reports a single episode, that is still ongoing. Modifying factors: The symptoms are alleviated by nothing. the symptoms are aggravated by nothing. Severity of pain: At its worst the pain was moderate in the emergency department the pain is unchanged. The patient has not experienced similar symptoms in the past. The patient has not recently seen a physician. Patient reports chest pain that is diffuse, feels like something is sitting on his chest, associated with diaphoresis and nausea. No recent illness or cough. No trauma. Reports a little worse when taking a deep breath. Denies abdominal pain. No history of [place] in the past. Historical: - Allergies: 10:51 Codeine; "makes nauseous"; jl7 - Home Meds: 10:51 glipizide 10 mg Oral tab 1 tab once daily [Active]; lisinopril 40 mg Oral tab [Active]; jl7 Metformin Oral [Active]; - PMHx: 10:51 Diabetes - NIDDM; GERD; Hypertension; jl7 - PSHx: 10:51 Tonsillectomy; jl7 - Immunization history:: Adult Immunizations not up to date, Client reports having NOT received the Covid vaccine. - Social history:: Smoking status: Patient reports the use of cigarette tobacco products, smokes two packs cigarettes per day. Patient uses street drugs, marijuana. - Family history:: not pertinent. - Hospitalizations: : No recent hospitalization is reported. ROS: 10:50 Constitutional: Negative for fever, chills, and weight loss, Eyes: Negative for injury, rn pain, redness, and discharge, Neck: Negative for injury, pain, and swelling, Cardiovascular: Negative for palpitations, and edema, Respiratory: Negative for shortness of breath, cough, wheezing, and pleuritic chest pain, Abdomen/GI: Negative for abdominal pain, vomiting, diarrhea, and constipation, Back: Negative for injury and pain, : Negative for injury, bleeding, discharge, and swelling, MS/Extremity: Negative for injury and deformity, Skin: Negative for injury, rash, and discoloration, Neuro: Negative for weakness, numbness, tingling, and seizure. 10:50 All other systems are negative. Exam: 10:50 Constitutional: This is a well developed, well nourished patient who is awake, alert, rn appears uncomfortable and diaphoretic Head/Face: Normocephalic, atraumatic. Eyes: Periorbital areas with no swelling, redness, or edema. Cardiovascular: Regular rate and rhythm. No pulse deficits. Respiratory: Mild tachypnea Abdomen/GI: Soft, non-tender Skin: Warm, diaphoretic on forehead MS/ Extremity: Pulses equal, no cyanosis. Neuro: Awake and alert, GCS 15, oriented to person, place, time, and situation. Cranial nerves II-XII grossly intact. Motor strength 5/5 in all extremities. Sensory grossly intact. 15:26 ECG was reviewed by the Attending Physician. rn Vital Signs: 10:49 BP 170 / 112; Pulse 91; Resp 15; Temp 97.7; Pulse Ox 97% on R/A; Weight 113.4 kg; jl7 Height 6 ft. 1 in. (185.42 cm); Pain 7/10; 11:45 BP 162 / 87; Pulse 85; Resp 18; Pulse Ox 95% ; sv 12:30 BP 143 / 91; Pulse 77; Resp 14; Pulse Ox 97% ; sv 13:17 BP 150 / 97; Pulse 67; Resp 17; Pulse Ox 100% ; sv 14:00 BP 144 / 81; Pulse 64; Resp 15; Pulse Ox 100% ; jl7 15:00 BP 135 / 85; Pulse 65; Resp 15; Pulse Ox 100% ; jl7 10:49 Body Mass Index 32.98 (113.40 kg, 185.42 cm) 7 MDM: 10:49 Patient medically screened. rn 13:45 ED course: Patient sleeping comfortably after morphine. States after earlier rn examination pain settled to just underneath rib cage. Labs and imaging point more towards cholelithiasis but not cholecystitis. Will repeat troponin given presentation of chest pain to rule out and since going back to shelter. Recommended better diet as he ate a greasy breakfast sandwich with christensen prior to abdominal pain and chest pain starting.. 15:19 Differential diagnosis: acute myocardial infarction, acute pericarditis, anxiety, rn coronary artery disease chest wall pain, cholecystitis, Cholelithiasis costochondritis, esophagitis, gastritis, gastroesophageal reflux disease (GERD), pleurisy. Data reviewed: vital signs, nurses notes, lab test result(s), EKG, radiologic studies, CT scan, plain films, ultrasound, and as a result, I will discharge patient. Data interpreted: cafeteria monitor: rate is 67 beats/min, rhythm is normal sinus rhythm, regular, with no ectopy, Interpretation: normal rate, normal rhythm, Pulse oximetry: on is 100 %. Interpretation: normal. Counseling: I had a detailed discussion with the patient and/or guardian regarding: the historical points, exam findings, and any diagnostic results supporting the discharge/admit diagnosis, lab results, radiology results, the need for outpatient follow up, to return to the emergency department if symptoms worsen or persist or if there are any questions or concerns that arise at home. Response to treatment: the patient's symptoms have markedly improved after treatment, the patient's condition has returned to base line, the patient is now symptom free, and as a result, I will discharge patient. Special discussion: Based on the patient's history, exam, and Dx evaluation, there is no indication for emergent intervention or inpatient Tx. It is understood by the patient/guardian that if the Sx's persist or worsen they need to return immediately for re-evaluation. Based on the patient's Hx, exam, and Dx evaluation, there is no indication for emergent surgery or inpatient Tx. It is understood by the patient/guardian that if the Sx's persist or worsen they need to return immediately for re-evaluation. I discussed with the patient/guardian in detail that at this point there is no indication for admission to the hospital. It is understood, however, that if the symptoms persist or worsen the patient needs to return immediately for re-evaluation. 15:19 ED course: Chest pain resolved, repeat troponin negative. Recommend diet modification rn and return precautions given. 11/21 10:49 Order name: Basic Metabolic Panel; Complete Time: 12:38 rn 11/21 10:49 Order name: CBC with Diff; Complete Time: 11:32 rn 11/21 10:49 Order name: LFT's; Complete Time: 12:38 rn 11/21 10:49 Order name: Magnesium; Complete Time: 12:38 rn 11/21 10:49 Order name: NT PRO-BNP; Complete Time: 12:38 rn 11/21 10:49 Order name: PT-INR; Complete Time: 11:32 rn 11/21 10:49 Order name: Troponin (emerg Dept Use Only); Complete Time: 12:38 rn 11/21 10:49 Order name: XRAY Chest (1 view); Complete Time: 12:34 rn 11/21 10:49 Order name: D-Dimer; Complete Time: 11:32 rn 11/21 10:50 Order name: CT Aorta for Dissection; Complete Time: 12:34 rn 11/21 12:35 Order name: US Abdomen Limited; Complete Time: 13:41 rn 11/21 13:41 Order name: Troponin (emerg Dept Use Only); Complete Time: 15:19 rn 11/21 10:49 Order name: EKG; Complete Time: 10:50 rn 11/21 10:49 Order name: Cardiac monitoring; Complete Time: 10:49 rn 11/21 10:49 Order name: EKG - Nurse/Tech; Complete Time: 10:49 rn 11/21 10:49 Order name: IV Saline Lock; Complete Time: 10:49 rn 11/21 10:49 Order name: Labs collected and sent; Complete Time: 10:49 rn 11/21 10:49 Order name: O2 Per Protocol; Complete Time: 10:49 rn 11/21 10:49 Order name: O2 Sat Monitoring; Complete Time: 10:49 rn EC:26 Rate is 92 beats/min. Rhythm is regular. Left axis deviation noted. QRS is positive in rn lead I and negative in lead aVF. AR interval is normal. QRS interval is normal. QT interval is normal. No Q waves. T waves are Normal. No ST changes noted. Clinical impression: NSR w/ Non-specific ST/T Changes. Interpreted by me. Reviewed by me. Administered Medications: 10:58 Drug: morphine 4 mg Route: IVP; Site: left antecubital; jl7 11:20 Follow up: Response: No adverse reaction; Pain is decreased jl7 10:58 Drug: Zofran (Ondansetron) 4 mg Route: IVP; Site: left antecubital; jl7 13:18 Follow up: Response: No adverse reaction jl7 Disposition Summary: 11/21/20 15:24 Discharge Ordered Location: Home rn Problem: new rn Symptoms: have improved rn Condition: Stable rn Diagnosis - Other cholelithiasis without obstruction rn - Chest pain, unspecified rn Followup: rn - With: Private Physician - When: As needed - Reason: Recheck today's complaints, Re-evaluation by your physician Discharge Instructions: - Discharge Summary Sheet rn - Nonspecific Chest Pain, Adult rn - Cholelithiasis rn Forms: - Medication Reconciliation Form rn - Thank You Letter rn - Antibiotic music intern - Prescription Opioid Use rn Signatures: Dispatcher [employer] EDJayden Naylor MD MD rn Leal, Jahala, RN RN jl7
--- NOTE | 2020-11-21 15:24 | ER ---
Nurse's Notes [facility] Name: Gabriel Walker Age: 59 yrs Sex: Male : 1960 Arrival Date: 11/21/2020 Time: 10:48 Bed 7 Private MD: Diagnosis: Other cholelithiasis without obstruction;Chest pain, unspecified Presentation: 11/21 10:49 Chief complaint: EMS states: Left sided CP started about an hour ago, hx of jl7 hypertension, out of medications x 3 months. Coronavirus screen: Vaccine status: Patient reports being unvaccinated. Ebola Screen: No symptoms or risks identified at this time. Initial Sepsis Screen: Does the patient meet any 2 criteria? No. Patient's initial sepsis screen is negative. Does the patient have a suspected source of infection? No. Patient's initial sepsis screen is negative. Risk Assessment: Do you want to hurt yourself or someone else? Patient reports no desire to harm self or others. Onset of symptoms was November 21, 2020. 10:49 Method Of Arrival: Ambulatory [facility] 10:49 Acuity: PARVIN 2 [facility] 10:49 Care prior to arrival: Medication(s) given: ASA, 81 mg, x 4. sv Triage Assessment: 10:51 General: Appears in no apparent distress. uncomfortable, Behavior is cooperative, jl7 anxious. Pain: Complains of pain in left breast Pain does not radiate. Pain currently is 7 out of 10 on a pain scale. Neuro: Level of Consciousness is awake, alert, obeys commands, Oriented to person, place, time, situation. Cardiovascular: Chest pain is described as Pain is 7 out of 10 on a pain scale. is located in left anterior chest wall. Respiratory: Airway is patent Respiratory effort is even, unlabored, Respiratory pattern is regular, symmetrical. Derm: Skin is diaphoretic, Skin is normal, Skin temperature is warm. Historical: - Allergies: 10:51 Codeine; "makes nauseous"; jl7 - Home Meds: 10:51 glipizide 10 mg Oral tab 1 tab once daily [Active]; lisinopril 40 mg Oral tab [Active]; jl7 Metformin Oral [Active]; - PMHx: 10:51 Diabetes - NIDDM; GERD; Hypertension; jl7 - PSHx: 10:51 Tonsillectomy; jl7 - Immunization history:: Adult Immunizations not up to date, Client reports having NOT received the Covid vaccine. - Social history:: Smoking status: Patient reports the use of cigarette tobacco products, smokes two packs cigarettes per day. Patient uses street drugs, marijuana. - Family history:: not pertinent. - Hospitalizations: : No recent hospitalization is reported. Screenin:53 Abuse screen: Denies threats or abuse. Denies injuries from another. Nutritional sv screening: No deficits noted. Tuberculosis screening: No symptoms or risk factors identified. Fall Risk None identified. Assessment: 13:18 Reassessment: Pt laying in bed with eyes closed, respirations even and unlabored, no jl7 signs of distress noted. Law enforcement remain at bedside. 14:30 Reassessment: Patient appears in no apparent distress at this time. Patient and/or jl7 family updated on plan of care and expected duration. Pain level reassessed. Patient is alert, oriented x 3, equal unlabored respirations, skin warm/dry/pink. Vital Signs: 10:49 BP 170 / 112; Pulse 91; Resp 15; Temp 97.7; Pulse Ox 97% on R/A; Weight 113.4 kg; jl7 Height 6 ft. 1 in. (185.42 cm); Pain 7/10; 11:45 BP 162 / 87; Pulse 85; Resp 18; Pulse Ox 95% ; sv 12:30 BP 143 / 91; Pulse 77; Resp 14; Pulse Ox 97% ; sv 13:17 BP 150 / 97; Pulse 67; Resp 17; Pulse Ox 100% ; sv 14:00 BP 144 / 81; Pulse 64; Resp 15; Pulse Ox 100% ; jl7 15:00 BP 135 / 85; Pulse 65; Resp 15; Pulse Ox 100% ; jl7 10:49 Body Mass Index 32.98 (113.40 kg, 185.42 cm) jl7 ED Course: 10:45 compliance monitor on. Pulse ox on. NIBP on. sv 10:48 Patient arrived in ED. rn 10:49 Jayden Albarran MD is Attending Physician. rn 10:49 Davis Bailey RN is Primary Nurse. jl7 10:50 Initial lab(s) drawn, by nc, sent to lab. Inserted saline lock: 20 gauge in left dh3 antecubital area, using aseptic technique. Blood collected. 10:51 Triage completed. jl7 10:51 Arm band placed on right wrist. jl7 10:53 EKG done, by ED staff, reviewed by Jayden Albarran MD. 10:53 Patient has correct armband on for positive identification. Bed in low position. Call light in reach. Side rails up X2. [place] [employer] at bedside. Pt in custody. 11:47 XRAY Chest (1 view) In Process Unspecified. EDMS 12:04 CT Aorta for Dissection In Process Unspecified. EDMS 13:12 US Abdomen Limited In Process Unspecified. EDMS 15:32 No provider procedures requiring assistance completed. IV discontinued, intact, jl7 bleeding controlled, No redness/swelling at site. Pressure dressing applied. Administered Medications: 10:58 Drug: morphine 4 mg Route: IVP; Site: left antecubital; jl7 11:20 Follow up: Response: No adverse reaction; Pain is decreased jl7 10:58 Drug: Zofran (Ondansetron) 4 mg Route: IVP; Site: left antecubital; jl7 13:18 Follow up: Response: No adverse reaction jl7 Outcome: 15:24 Discharge ordered by . rn 15:32 Discharged to home ambulatory. jl7 15:32 Condition: stable 15:32 Discharge instructions given to patient, police, Instructed on discharge instructions, follow up and referral plans. Demonstrated understanding of instructions, follow-up care. 15:33 Patient left the ED. jl7 Signatures: Dispatcher [employer] Zaina Aleman RN RN sv Nieto, Roman, MD MD rn Leal, Jahala, RN RN 7 Elvia Torres pending sale to [facility]
[2020-11-21 15:45] VITALS: TEMP 97.7
[2020-11-21 15:48] VITALS: O2SAT 100
[2020-11-21 15:51] VITALS: BP 135/85
== END 2020-11-21 15:33 | disposition home or self-care (01) ==
LOC: ER 10:47
DX: K80.80 Other cholelithiasis without obstruction (principal); I10 Essential (primary) hypertension; E11.9 Type 2 diabetes mellitus without complications; F17.210 Nicotine dependence, cigarettes, uncomplicated; Z88.5 Allergy status to narcotic agent
CPT/HCPCS: 93005; 85025; 80048; 36415; 83735; 85610; 85379; 80076; 84484 ×2; 83880; 71275; 74175; 71045; 76705; 96375; 96374; 99284; Q9967; J2405

== ENCOUNTER 2021-01-20 00:01 | Emergency (ER) | payer OTHER ==
--- OUTSIDE RECORDS SUMMARY | 2021-01-20 00:04 | XMS REPORT | Continuity of Care Document ---
:1960 Author Organization [facility] t Address [address] [place] [address] [address] [place] [address] Care Team Providers Name Role Phone Trever Attending Clinician Unavailable Trever Admitting Clinician Unavailable Physician, Primary or Family Admitting Clinician Unavailabl e Payers Payer Name Policy Type Policy Number Effective Date Expiration Date S ource Problems This patient has no known problems. Allergies, Adverse Reactions, Alerts Allergy Allergy Status Severity Reaction(s) Onset Inactive Treating Comm ents Source Name Type Date Date Clinician codeine DA Active MO 2018- [facility] 04[facility]11 [facility] 00:00: d 00 [facility] codeine DA Active [place] NAUSEA 2018-02 [facility] 04[facility]11 [facility] 00:00: d 00 [facility] Medications This patient has no known medications. Procedures This patient has no known procedures. Encounters Start End Encounter Admission Attending Care Care Encounter Source Date/Time Date/Time Type Type Clinicians Facility Department ID 2019-04-10 Inpatient EM Yasir-Laws [facility] [id number] 0-2 [facility] 00:22:00 on, [id number] [facility] 2019-04-09 Inpatient [facility] MELINDA [id number] [facility] 22:17:00 [id number] [facility] Results Test Description Test Time Test Comments Results Result Comments Source GLUBED 2019-04-11 11:11:00 Test Item Value Reference Range Interpretation Comme nts GLUBED (test code = GLUBED) 370 MG/DL 74-106 H [id number] 05:57:00 Test Item Value Reference Range Interpretation Comments GLUBED (test code = GLUBED) 289 MG/DL 74-106 H COMPREHENSIVE METABOLIC [id number] 05:17:00 Test Item Value Reference Range Interpretation [...] U/L 38-126 N (test code = ALKP) [id number] 05:17:00 Test Item Value Reference Range Interpretation Comments MAGNESIUM (test code = MAG) 1.4 mg/dL 1.6-2.3 L COMPREHENSIVE METABOLIC [id number] 05:13:00 Test Item Value Reference Range Interpretation [...] U/L 38-126 N (test code = ALKP) [id number] 05:13:00 Test Item Value Reference Range Interpretation Comments MAGNESIUM (test code = MAG) mg/dL 1.6-2.3 CBC W/AUTO [id number] 05:02:00 Test Item Value Reference Range Interpretation [...] = BA#) 0.06 x10 3/uL 0.0-0.1 N [id number] 23:26:00 Test Item Value Reference Range Interpretation Comments GLUBED (test code = GLUBED) 270 MG/DL 74-106 H [id number] 18:08:00 Test Item Value Reference Range Interpretation Comments GLUBED (test code = GLUBED) 391 MG/DL 74-106 H [id number] 12:57:00 Test Item Value Reference Range Interpretation Comments GLUBED (test code = 403 MG/DL 74-106 HH Read Karla k to GLUBED) A VENOUS SPECIMEN SHOULD BE ORDERED FOR GLUCOSE VERIFIC ATION IF MED ICALLY NECESSARY. [id number] 11:31:00 Test Item Value Reference Range Interpretation Comments GLUBED (test code = GLUBED) 332 MG/DL 74-106 H [id number] 06:51:00 Test Item Value Reference Range Interpretation [...] *LDL Cholesterol<1 00mg/ dL: Desirable L DL-C visdizkgowtgq57 0-159 mg/dL: Borderli ne High Risk LDL-C hzxafovaunrbn79 0-189 mg/dL: High ris k LDL-C concentra [...] DL Cholesterol<1 00mg/dL : Desirable LDL -C fwnubmatpbnpr45 0-159mg /dL: Borderline High Risk LDL-C yzybnigawwpem39 0-189mg /dL: High risk LDL-C concentration H DL-LDL Cholesterol is affected by a n umber of factors such as smoking, age an d sex.~~~~~~~~~~~ ~~~~~~~ ~~~~~~~~~~~~~~~ ~~~~~~~ ~~~~~~~~~~~~~~~ ~~~~~ HGBA1C - GLYCOSYLATED [id number] 00:29:00 Test Item Value Reference Range Interpretation [...] hemo globin variants. 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 Additional findings as above at 2572 Reported and signed by: Elaine Hatch MD PAGE 1 Signed Report (CONTINUED) FAX: Irais Alcantara [phone] [place]: St: [facility] 1960 Age/S: 58/M [address] Unit: [id number] Loc: [place] [address] Phys: Irais River NP Acct: [id number] Dis Date: Status: REG ER PHONE #: [phone] Exam Date: 04/09/2019 2328 FAX #: [phone] Reas on: headache, htn EXAMS: CPT CODE: [id number] CT HEAD/BRAIN W/O CONT 12226 <Continued> CC: Irais River NP Technologist: Christina Feliciano; Nadeem Kendrick Trnscrd Dt/Tm: 04/09/2019 (5846) [email or web address] Orig Print D/T: S: 04/09/2019 (2342 PAGE 2 Signed ReportCOMPREHENSIVE METABOLIC [id number] 23:25:00 Test Item Value Reference Range Interpretation Comments SODIUM (test code = 129 mmol/L 137-145 L NA) POTASSIUM (test code = 4.4 mmol/L 3.4-5.0 N K) CHLORIDE (test code = 97 mmol/L 98-107 L CL) CARBON DIOXIDE (test 20 mmol/L 22-30 L code = CO2) GLUCOSE (test code = 563 mg/dL 74-106 HH Critica l Value GLU) reported toFirs t Name:[id number] La st Name:RESULTS RE AD BACK AND CHU [...] N (test code = ALKP) CBC W/AUTO [id number] 23:16:00 Test Item Value Reference Range Interpretation [...] 3/uL 0.0-0.1 N - XR CHEST 1 [id number] 23:12:00 FAX: Irais Alcantara [phone] [place]: St: REG Name: [facility] : 1960 Age/S: 58/M [address] Unit#: [id number] Loc: [place] [address] Phys: Irais River NP Acct: [id number] Dis Date: Status: [facility] ER PHONE #: [phone] Exam Date: 04/09/20192254 FAX #: [phone] Reason: elevated bp EXAMS: CPT CODE: [id number] XR CHEST 1 V 56415 Examination: One view chest x-ray Location code: H60 Comparison: None Discussion: Clinical history is remarkable for elevated blood pressure. Heart is normal in size. Lungs are clear of consolidatinginfiltrates. No masses, nodules or effusions identified. Impression: 1. Normal one view chest x-ray. at 2312 Reported and signed by: Marc Kebede MD CC: Irais River NP Technologist: LAWSON BORJAS Date/Time/By: 04/09/2019 (2312) : By: [email or web address] PAGE 1 Signed Report FAX: Irais Alcantara [phone] [place]: St: REG -- Name: [facility] : 1960 Age/S: 58/M [address] Unit #: [id number] Loc: [place] [address] Phys: Irais River [employer] IN[employer] SUPERVISOR Acct: [id number] Dis Date: Status: REG ER PHONE #: [phone] Exam Date: 04/09/20192254 FAX #: [phone] Reason: elevatedbp EXAMS: CPT CODE: [id number] XR CHEST 1 V 99587 <Continued> Orig Print D/T: S: 04/09/2019 (6891)PAGE 2 Signed Report CBC W/AUTO [id number] 23:07:00 Test Item Value Reference Range Interpretation [...] 0.06 x10 3/uL 0.0-0.1 N TROPONIN I [id number] 23:05:00 Test Item Value Reference Range Interpretation [...]
[2021-01-20] MEDS ORDERED: DIPHENHYDRAMINE 50 MG/ML VIAL ONE (00:22)
[2021-01-20] MEDS ORDERED: METOCLOPRAMIDE 10 MG/2mL INJ ONE (00:22)
[2021-01-20] MEDS ORDERED: KETOROLAC 30 MG/ML INJ ONE (00:22)
--- NOTE | 2021-01-20 01:50 | EDPHYS ---
Physician Documentation [facility] Name: Gabriel Walker Age: 60 yrs Sex: Male : 1960 Arrival Date: 01/20/2021 Time: 00:04 Bed 17 Private MD: ED Physician Drew Anna HPI: 01/20 00:20 This 60 yrs old Male presents to ER via Ambulatory with complaints of Headache. pm1 00:20 The patient complains of pain to the right temporal area and behind right eye. The pm1 patient describes the headache as comes and goes, sharp. Onset: The symptoms/episode began/occurred 2 day(s) ago. Associated signs and symptoms: Pertinent negatives: fever, nausea, vision changes, vomiting. Severity of symptoms: in the emergency department the pain is unchanged. Headache History: Denies prior headaches. The symptoms are alleviated by nothing. the symptoms are aggravated by nothing. The patient has not experienced similar symptoms in the past. The patient has not recently seen a physician. ROS: 00:20 Constitutional: Negative for fever, chills, and weight loss, Cardiovascular: Negative pm1 for chest pain, palpitations, and edema, Respiratory: Negative for shortness of breath, cough, wheezing, and pleuritic chest pain, Abdomen/GI: Negative for abdominal pain, nausea, vomiting, diarrhea, and constipation, MS/Extremity: Negative for injury and deformity, Skin: Negative for injury, rash, and discoloration. 00:20 Neuro: Positive for headache, Negative for numbness, tingling, visual changes, weakness. 00:20 All other systems are negative. Exam: 00:20 Constitutional: This is a well developed, well nourished patient who is awake, alert, pm1 and in no acute distress. 00:20 Skin: Warm, dry with normal turgor. Normal color with no rashes, no lesions, and no evidence of cellulitis. MS/ Extremity: Pulses equal, no cyanosis. Neurovascular intact. Full, normal range of motion. 00:20 Head/face: Exam is negative for tenderness. 00:20 Eyes: Exam is negative for acute changes, Extraocular movements: no acute changes, Conjunctiva: no acute changes, no injection, Sclera: no acute changes, icterus, is not appreciated. 00:20 ENT: Exam is negative for acute changes, Mouth: Lips: normal, moist, Oral mucosa: normal, pink and intact, moist. 00:20 Cardiovascular: Exam negative for acute changes, Rate: normal, Rhythm: regular, Pulses: no pulse deficits are appreciated. 00:20 Respiratory: Exam negative for acute changes, respiratory distress, shortness of breath. 00:20 Neuro: Exam negative for acute changes, Orientation: is normal, Mentation: is normal, Motor: is normal, moves all fours, Sensation: is normal, no obvious gross deficits. Vital Signs: 00:07 BP 142 / 80; Pulse 99; Resp 22; Temp 98; Pulse Ox 96% on R/A; Weight 106.59 kg; Height da3 6 ft. 0 in. (182.88 cm); 01:15 BP 103 / 46; Pulse 85; Resp 18 S; Pulse Ox 95% on R/A; as6 00:07 Body Mass Index 31.87 (106.59 kg, 182.88 cm) da3 MDM: 00:16 Patient medically screened. pm1 00:20 Differential diagnosis: cluster headache, intracerebral hemorrhage, migraine, pm1 subarachnoid bleed, subdural hematoma, temporal arteritis, tension headache. 01:04 Data reviewed: vital signs. Data interpreted: Pulse oximetry: on room air is 96 %. pm1 Interpretation: normal. 01:46 ED course: patient reports improvement in his headache. Patient was sleeping. Offered pm1 additional pain medications and he refused.. 01:46 Counseling: I had a detailed discussion with the patient and/or guardian regarding: the pm1 historical points, exam findings, and any diagnostic results supporting the discharge/admit diagnosis, radiology results, the need for outpatient follow up, a neurologist, to return to the emergency department if symptoms worsen or persist or if there are any questions or concerns that arise at home. 01:53 ED course: [place] reviewed. pm1 01/20 00:19 Order name: CT Head Brain wo Cont pm1 01/20 00:19 Order name: IV Saline Lock; Complete Time: 00:25 pm1 Administered Medications: 00:30 Drug: Ketorolac 30 mg Route: IVP; Site: right hand; as6 02:01 Follow up: Response: No adverse reaction as6 00:30 Drug: Benadryl (diphenhydrAMINE) 25 mg Route: IVP; Site: right hand; as6 02:01 Follow up: Response: No adverse reaction as6 00:30 Drug: Reglan (metoCLOPramide) 10 mg Route: IVP; Site: right hand; as 02:02 Follow up: Response: No adverse reaction as6 Disposition: 04:04 Co-signature as Attending Physician, Drew Anna MD. pkl Disposition Summary: 01/20/21 01:49 Discharge Ordered Location: Home pm1 Problem: new pm1 Symptoms: have improved pm1 Condition: Stable pm1 Diagnosis - Headache pm1 Followup: pm1 - With: Emergency Department - When: As needed - Reason: Worsening of condition Followup: pm1 - With: Private Physician - When: 2 - 3 days - Reason: Recheck today's complaints, Continuance of care, Re-evaluation by your physician Discharge Instructions: - Discharge Summary Sheet pm1 - General Headache Without Cause pm1 Forms: - Medication Reconciliation Form pm1 - Thank You Letter pm1 - Antibiotic Education pm1 - Prescription Opioid Use pm1 Prescriptions: - nxeqomhyos-ghxtmeq-uddzosyx - take 1 tablet by ORAL route every 6 hours As needed; 12 tablet; Refills: 0, pm1 Product Selection Permitted Signatures: Dispatcher [employer] EDDrew Pennington MD MD pkl Jorge Gonzales, [employer] pm1 Zohaib Leonard RN RN as6 Corrections: (The following items were deleted from the chart) 00:34 00:20 The patient complains of pain to the right temporal area, pm1 pm1 00:34 00:20 The patient complains of pain to the right temporal area, pm1 pm1 00:37 00:20 The patient describes the headache as constant, sharp, pm1 pm1
--- NOTE | 2021-01-20 01:50 | ER ---
Nurse's Notes [facility] Name: Gabriel Walker Age: 60 yrs Sex: Male : 1960 Arrival Date: 01/20/2021 Time: 00:04 Bed 17 Private MD: Diagnosis: Headache Presentation: 01/20 00:07 Chief complaint: Patient states: head pain x 2 days. Coronavirus screen: Vaccine da3 status: Patient reports being unvaccinated. Ebola Screen: No symptoms or risks identified at this time. Risk Assessment: Do you want to hurt yourself or someone else? Patient reports no desire to harm self or others. 00:07 Method Of Arrival: Ambulatory da3 00:07 Acuity: PARVIN 3 da3 00:32 Initial Sepsis Screen: Does the patient meet any 2 criteria? No. Patient's initial as6 sepsis screen is negative. Does the patient have a suspected source of infection? No. Patient's initial sepsis screen is negative. Onset of symptoms was January 18, 2021. Triage Assessment: 00:13 General: Appears distressed, uncomfortable, Behavior is cooperative, appropriate for da3 age. Pain: Complains of pain in right muslim Quality of pain is described as sharp, Pain began suddenly, 2-3 days ago. Screenin:32 Abuse screen: Denies threats or abuse. Nutritional screening: No deficits noted. as6 Tuberculosis screening: No symptoms or risk factors identified. Fall Risk None identified. Assessment: 00:31 General: Appears uncomfortable, Behavior is calm, cooperative. Pain: Complains of pain as6 in right muslim Pain does not radiate. Quality of pain is described as sharp, shooting. Neuro: Level of Consciousness is awake, alert, obeys commands, Oriented to person, place, time, situation, Reports headache in right parietal area. Cardiovascular: Capillary refill < 3 seconds Patient's skin is warm and dry. Respiratory: Airway is patent Trachea midline Respiratory effort is even, unlabored, Respiratory pattern is regular, symmetrical. Derm: Skin is intact, is healthy with good turgor. Vital Signs: 00:07 BP 142 / 80; Pulse 99; Resp 22; Temp 98; Pulse Ox 96% on R/A; Weight 106.59 kg; Height da3 6 ft. 0 in. (182.88 cm); 01:15 BP 103 / 46; Pulse 85; Resp 18 S; Pulse Ox 95% on R/A; as6 00:07 Body Mass Index 31.87 (106.59 kg, 182.88 cm) da3 ED Course: 00:04 Patient arrived in ED. bp1 00:12 Triage completed. da3 00:14 Zohaib Leonard, SUZANNA is Primary Nurse. as6 00:14 [facility]. pm1 00:14 Drew Anna MD is Attending Physician. pm1 00:24 Inserted saline lock: 18 gauge in right hand, using aseptic technique. bb 00:32 Arm band placed on. as6 00:33 Placed in gown. Bed in low position. Call light in reach. Side rails up X 1. Adult w/ as6 patient. Pulse ox on. NIBP on. 01:10 CT Head Brain wo Cont In Process Unspecified. EDMS 02:01 No provider procedures requiring assistance completed. IV discontinued, intact, as6 bleeding controlled, No redness/swelling at site. Pressure dressing applied. Administered Medications: 00:30 Drug: Ketorolac 30 mg Route: IVP; Site: right hand; as6 02:01 Follow up: Response: No adverse reaction as6 00:30 Drug: Benadryl (diphenhydrAMINE) 25 mg Route: IVP; Site: right hand; as6 02:01 Follow up: Response: No adverse reaction as6 00:30 Drug: Reglan (metoCLOPramide) 10 mg Route: IVP; Site: right hand; as6 02:02 Follow up: Response: No adverse reaction as6 Outcome: 01:49 Discharge ordered by . pm1 02:01 Discharged to home ambulatory, with significant other. as6 02:01 Condition: stable 02:01 Discharge instructions given to patient, Instructed on discharge instructions, follow up and referral plans. medication usage, Demonstrated understanding of instructions, follow-up care, medications, Prescriptions given X 1. 02:02 Patient left the ED. as6 Signatures: Dispatcher [employer] EDMS Martha Todd RN RN bb Marinas, Patrick, NP [employer] pm1 Gladys Landry bp1 Lance Ocasio RN RN da3 Zohaib Leonard RN RN as6
[2021-01-20 02:09] VITALS: TEMP 98
[2021-01-20 02:12] VITALS: BP 103/46; O2SAT 95
--- NOTE | 2021-01-20 13:41 | RAD REPORT ---
EXAM DESCRIPTION: CT - Head Brain Wo Cont - 01/20/2021 6:41 am CLINICAL HISTORY: 60 years, Male, HEADACHE COMPARISON: None. FINDINGS: Multiple transaxial tomograms of the brain were obtained from the base of the skull to the vertex without contrast. 2-D multiplanar reformats and the coronal and sagittal plane were performed and reviewed. This exam was performed according to our departmental dose-optimization protocol, which includes auto mated exposure control, adjustment of the mA and/or kV according to patient size and/or use of iterat janusz reconstruction technique. Brain parenchyma as well as the jaeger and white matter differentiation demonstrate to be unremarkable. There is no midline shift and/or mass effect. There is no evidence for acute hemorrhage. No focal ar eas of hypodensities. Lateral ventricles and cisterns displace normal appearance. No intra or ext ra axial fluid collections were seen. The calvarium is intact with no evidence for fracture. The visu alized portions of the paranasal sinuses and orbits demonstrate to be clear. IMPRESSION: NO ACUTE INTRACRANIAL HEMORRHAGE. UNREMARKABLE CT SCAN OF THE HEAD WITHOUT CONTRAST. Electronically signed by: Josue Cody MD 01/20/2021 1:33 AM [facility] Due to temporary technical issues with the PACS/Fluency reporting system, reports are being signed by the in house radiologists without review as a courtesy to insure prompt reporting. The interpreting radiologist is fully responsible for the content of the report.
== END 2021-01-20 02:02 | disposition home or self-care (01) ==
LOC: ER 00:01
DX: R51.9 Headache, unspecified (principal)
CPT/HCPCS: 70450; 96375; 96374; 99284; J2765; J1200

== ENCOUNTER 2022-04-20 20:55 | Emergency (ER) | payer OTHER ==
--- NOTE | 2022-04-20 21:37 | RAD REPORT ---
EXAM DESCRIPTION: RAD - Chest Single View - 04/20/2022 9:30 pm CLINICAL HISTORY: CHEST PAIN Chest pain. COMPARISON: Chest Single View dated 11/21/2020 FINDINGS: Portable technique limits examination quality. The lungs are grossly clear. The heart is normal in size. No displaced fractures. IMPRESSION: No acute intrathoracic process suspected.
--- OUTSIDE RECORDS SUMMARY | 2022-04-20 21:46 | XMS REPORT | Continuity of Care Document ---
:1960 Author Organization [facility] t Address [address] [facility] [address] [place] [address] Care Team Providers Name Role Phone Sheyla Blackhani Attending Clinician Unavailable Robert Perera Attending Clinician Unavailab Brenton Hernandez Attending Clinician Robert Perera Admitting Clinician Unavailab carmona Payers Payer Name Policy Type Policy Number Effective Date Expiration Date S ource Problems Condition Condition Condition Status Onset Resolution Last Treating Co mments Source Name Details Category Date Date Treatment Clinician Date [id number] Tobacco Problem Commo n use Spirit disorder - [facility] [id number] 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 [id number] Chronic Problem Common obstructiv [facility] type [id number] Gastroesop Problem Co mmon hageal Spirit reflux - [facility] disease [facility] esophagiti Medica s [place] [id number] Primary Problem Common insomnia [facility] [id number] Mixed Problem Common hyperlipid [facility] Asthma Asthma Problem Active 2019-03-03 Qamar darnell (disorder) (disorder) 01:36:30 l Active Reva Problem 03/03/2019 [facility] Simple Simple Problem Active 2019-03-03 Qamar darnell obesity obesity 01:36:30 l (disorder) (disorder) He rmann Active Problem 03/03/2019 Medical Group Allergies, Adverse Reactions, Alerts Allergy Allergy Status Severity Reaction(s) Onset Inactive Treating Comm ents Source Name Type Date Date Clinician codeine DA Active MO 2018-02 [facility] 04[facility]11 [facility] 00:00: d 00 [facility] codeine DA Active MO NAUSEA 2018-02 [facility] 04-11 [facility] 00:00: d 00 [facility] etodolac etodolac Active Unknown Commo n [facility] codeine codeine Active [facility] Social History Social Habit Start Date Stop Date Quantity Comments Source History of Current Smoker Common Spi rit - Tobacco Use [facility] Sex Assigned At Common Sp clive - [facility] Social History 2019-02-28 2019-02-28 Leisa vivar 16:57:58 16:57:58 Smoking Status Start Date Stop Date Source Current Smoker 2021-11-04 00:00:00 Common Spiri t - [facility] Medications Ordered Filled Start Stop Current Ordering Indication Dosage Frequency Signature Comments Components Source Medication Medication Date Date Medication? Clinician (SIG) Name Name lisinopril Yes 40 mg = 1 Me moria 40 mg oral 1-15 tab, PO, l tablet 17:19: Daily, # Reva 00 90 tab, 0 Refill(s), Pharmacy: [facility] Fluticasone 2019- Yes 1 spray, Me moria propionate 1-15 NASAL, l 0.05 17:19: BID, # 16 Nathaniel MG/ACTUAT 00 gm, 0 Metered Refill(s), Dose Nasal Pharmacy: [facility] Ventolin 0 Yes 2 puff, Memori a HFA 90 1-15 INHALER, l mcg/inh 17:18: QID, PRN Ronald n inhalation 00 wheezing, aerosol coughing, with or adapter shortness of breath, # 1 ea, 0 Refill(s), Pharmacy: [facility] 297 Esomeprazol 0 Yes 40 mg = 1 M emoria e 40 MG 1-15 cap, PO, l Enteric 17:18: Daily, # Ronald n Coated 00 90 tab, 1 Capsule Refill(s), Pharmacy: [facility] 297 Ventolin 0 No INHALER, Memor ia HFA 90 1-15 PRN l mcg/inh 16:58: wheezing, Rosa Elena nn inhalation 00 coughing, aerosol or with shortness adapter of breath Esomeprazol 2019-0 No 40 mg = 1 M emoria e 40 MG 1-15 cap, PO, l Enteric 16:58: Daily Nathaniel Coated 00 Capsule Mirtazapine Mirtazapine No Mirtazapin 30 MG 30 MG e 30 MG Albuterol Albuterol No 1{puff_ Albuterol Sulfate HFA Sulfate HFA as_need Sulfate 108 (90 108 (90 ed} HFA 108 Base) Base) (90 Base) MCG/ACT MCG/ACT MCG/ACT glipiZIDE glipiZIDE No BID glipiZIDE 10 MG 10 MG 10 MG Lisinopril Lisinopril No 1{table QD Lisinopril 10 MG 10 MG t} 10 MG NexIUM 40 NexIUM 40 No 1{capsu QD NexIUM 40 MG MG le} MG metFORMIN metFORMIN No metFORMIN HCl 1000 MG HCl 1000 MG HCl 1000 MG Mirtazapine Mirtazapine No Mirtazapin 30 MG 30 MG e 30 MG Albuterol Albuterol No 1{puff_ Albuterol Sulfate HFA Sulfate HFA as_need Sulfate 108 (90 108 (90 ed} HFA 108 Base) Base) (90 Base) MCG/ACT MCG/ACT MCG/ACT glipiZIDE glipiZIDE No BID glipiZIDE 10 MG 10 MG 10 MG Lisinopril Lisinopril No 1{table QD Lisinopril 10 MG 10 MG t} 10 MG NexIUM 40 NexIUM 40 No 1{capsu QD NexIUM 40 MG MG le} MG metFORMIN metFORMIN No metFORMIN HCl 1000 MG HCl 1000 MG HCl 1000 MG Mirtazapine Mirtazapine No Mirtazapin 30 MG 30 MG e 30 MG Albuterol Albuterol No 1{puff_ Albuterol Sulfate HFA Sulfate HFA as_need Sulfate 108 (90 108 (90 ed} HFA 108 Base) Base) (90 Base) MCG/ACT MCG/ACT MCG/ACT glipiZIDE glipiZIDE No BID glipiZIDE 10 MG 10 MG 10 MG Lisinopril Lisinopril No 1{table QD Lisinopril 10 MG 10 MG t} 10 MG NexIUM 40 NexIUM 40 No 1{capsu QD NexIUM 40 MG MG le} MG metFORMIN metFORMIN No metFORMIN HCl 1000 MG HCl 1000 MG HCl 1000 MG Mirtazapine Mirtazapine No Mirtazapin 30 MG 30 MG e 30 MG Lisinopril Lisinopril No 1{table QD Lisinopril 10 MG 10 MG t} 10 MG metFORMIN metFORMIN No metFORMIN HCl 1000 MG HCl 1000 MG HCl 1000 MG Esomeprazol Esomeprazol No Esomeprazo e Magnesium e Magnesium le 40 MG 40 MG Magnesium 40 MG Rosuvastati Rosuvastati No 1{table QD Rosuvastat n Calcium n Calcium t} in Calcium 20 MG 20 MG 20 MG glipiZIDE glipiZIDE No glipiZIDE 10 MG 10 MG 10 MG glipiZIDE glipiZIDE No BID glipiZIDE 10 MG 10 MG 10 MG NexIUM 40 NexIUM 40 No 1{capsu QD NexIUM 40 MG MG le} MG Albuterol Albuterol No 6xD Albuterol Sulfate HFA Sulfate HFA Sulfate 108 (90 108 (90 HFA 108 Base) Base) (90 Base) MCG/ACT MCG/ACT MCG/ACT Meloxicam Meloxicam No Meloxicam 7.5 MG 7.5 MG 7.5 MG Mirtazapine Mirtazapine No Mirtazapin 30 MG 30 MG e 30 MG Lisinopril Lisinopril No 1{table QD Lisinopril 10 MG 10 MG t} 10 MG metFORMIN metFORMIN No metFORMIN HCl 1000 MG HCl 1000 MG HCl 1000 MG Esomeprazol Esomeprazol No Esomeprazo e Magnesium e Magnesium le 40 MG 40 MG Magnesium 40 MG Rosuvastati Rosuvastati No 1{table QD Rosuvastat n Calcium n Calcium t} in Calcium 20 MG 20 MG 20 MG glipiZIDE glipiZIDE No glipiZIDE 10 MG 10 MG 10 MG glipiZIDE glipiZIDE No BID glipiZIDE 10 MG 10 MG 10 MG NexIUM 40 NexIUM 40 No 1{capsu QD NexIUM 40 MG MG le} MG Albuterol Albuterol No 6xD Albuterol Sulfate HFA Sulfate HFA Sulfate 108 (90 108 (90 HFA 108 Base) Base) (90 Base) MCG/ACT MCG/ACT MCG/ACT Meloxicam Meloxicam No Meloxicam 7.5 MG 7.5 MG 7.5 MG metFORMIN metFORMIN No metFORMIN HCl 1000 MG HCl 1000 MG HCl 1000 MG Lisinopril Lisinopril No 1{table QD Lisinopril 10 MG 10 MG t} 10 MG Albuterol Albuterol No 1{puff_ Albuterol Sulfate HFA Sulfate HFA as_need Sulfate 108 (90 108 (90 ed} HFA 108 Base) Base) (90 Base) MCG/ACT MCG/ACT MCG/ACT NexIUM 40 NexIUM 40 No 1{capsu QD NexIUM 40 MG MG le} MG glipiZIDE glipiZIDE No BID glipiZIDE 10 MG 10 MG 10 MG Mirtazapine Mirtazapine No Mirtazapin 30 MG 30 MG e 30 MG Vital Signs Vital Name Observation Time Observation Value Comments Source height 2021-11-04 10:40:00 71 [in_i] [facility] weight 2021-11-04 10:40:00 234 [lb_av] [facility] temperature 2021-11-04 10:40:00 97.4 [degF] [facility] bmi 2021-11-04 10:40:00 32.63 kg/m2 [facility] oximetry 2021-11-04 10:40:00 94 % [facility] respiratory rate 2021-11-04 10:40:00 17 /min Comm on [facility] blood pressure 2021-11-04 10:40:00 134 mm[Hg] Common [facility] - systolic [facility] blood pressure 2021-11-04 10:40:00 82 mm[Hg] Common [facility] - diastolic [facility] height 2021-07-27 08:00:00 68 [in_i] Common [facility] weight 2021-07-27 08:00:00 238.6 [lb_av] Common [facility] temperature 2021-07-27 08:00:00 98.5 [degF] Common [facility] bmi 2021-07-27 08:00:00 36.28 kg/m2 [facility] oximetry 2021-07-27 08:00:00 96 % Common [facility] respiratory rate 2021-07-27 08:00:00 16 /min Comm on [facility] blood pressure 2021-07-27 08:00:00 132 mm[Hg] Common [facility] - systolic [facility] blood pressure 2021-07-27 08:00:00 78 mm[Hg] Common [facility] - diastolic [facility] height 2021-07-27 08:00:00 68 [in_i] Common [facility] weight 2021-07-27 08:00:00 238.6 [lb_av] [facility] temperature 2021-07-27 08:00:00 98.5 [degF] Common [facility] bmi 2021-07-27 08:00:00 36.28 kg/m2 Common [facility] oximetry 2021-07-27 08:00:00 96 % Common [facility] respiratory rate 2021-07-27 08:00:00 16 /min Comm on [facility] blood pressure 2021-07-27 08:00:00 132 mm[Hg] Common [facility] - systolic [facility] blood pressure 2021-07-27 08:00:00 78 mm[Hg] Common [facility] height 2021-07-01 08:20:00 68 [in_i] Common [facility] weight 2021-07-01 08:20:00 237 [lb_av] Common [facility] temperature 2021-07-01 08:20:00 98.2 [degF] Common [facility] bmi 2021-07-01 08:20:00 36.03 kg/m2 Common [facility] oximetry 2021-07-01 08:20:00 96 % [facility] respiratory rate 2021-07-01 08:20:00 18 /min Comm on [facility] Systolic (mm Hg) 2019-02-28 16:53:00 Qamar rial Nathaniel Diastolic (mm Hg) 2019-02-28 16:53:00 Mem orial [facility] Heart Rate 2019-02-28 16:53:00 [facility] Oral (F) 2019-02-28 16:53:00 98.1 F [facility] Height 2019-02-28 16:53:00 185.42 cm [facility] Reva Weight 2019-02-28 16:53:00 [facility] BMI Calculated 2019-02-28 16:53:00 Rajeevori al Nathaniel Procedures This patient has no known procedures. Encounters Start End Encounter Admission Attending Care Care Encounter Source Date/Time Date/Time Type Type Clinicians Facility Department ID 2021-11-02 Outpatient [facility] [id number] Common 09:24:[address] [facility] 2021-07-22 Outpatient [facility] [id number] Common 14:26:[address] [facility] 2021-06-18 Outpatient [facility] [id number] Common 14:04:[address] [facility] 2019-04-10 Inpatient EM Yasir-Laws HCAKW MED [id number] [facility] 00:22:00 on, 45 Kingw Oluwabomila d [facility] 2021-11-04 2021-11-04 OFFICE STLMLC STLMLC [id number] Co mmon 00:00:00 00:00:00 VISIT Spirit ESTAB PT - CHI LEVEL 4 [facility] 2021-07-27 2021-07-27 OFFICE STLMLC STLMLC [id number] Co mmon 00:00:00 00:00:00 VISIT Spirit ESTAB PT - CHI LEVEL 4 [facility] 2021-07-27 2021-07-27 (MCR WELL) STLMLC STLMLC [id number] Common 00:00:00 00:00:00 Medicare Spiri t Wellness - CHI [facility] 2021-07-24 2021-07-24 (TEL) STLMLC STLMLC [id number] Co mmon 00:00:00 00:00:00 Spirit - [facility] 2021-07-01 2021-07-01 OFFICE STLMLC STLMLC [id number] Co mmon 00:00:00 00:00:00 VISIT NEW Spir it PT LEVEL 4 - CHI [facility] 2019-02-28 2019-03-01 Outpatient nullFlavo [facility] [id number] Memoria 17:00:00 05:59:59 r Primary 00 john [facility] [employer] 2019-02-28 2019-02-28 Outpatient Lori, [facility] [id number] 11:00:00 23:59:59 Brenton 00 2019-02-28 2019-02-28 Outpatient MAXX [facility] [id number] Memoria 11:00:00 11:00:00 00 john Armstrong Results Test Description Test Time Test Comments Results Result Comments Source GLUBED 2019-04-11 11:11:00 Test Item Value Reference Range Interpretation Comme nts GLUBED (test code = GLUBED) 370 MG/DL 74-106 H [id number] 05:57:00 Test Item Value Reference Range Interpretation Comments GLUBED (test code = GLUBED) 289 MG/DL 74-106 H COMPREHENSIVE METABOLIC [id number] 05:17:00 Test Item Value Reference Range Interpretation [...] U/L 38-126 N (test code = ALKP) [id number] 05:17:00 Test Item Value Reference Range Interpretation Comments MAGNESIUM (test code = MAG) 1.4 mg/dL 1.6-2.3 L COMPREHENSIVE METABOLIC [id number] 05:13:00 Test Item Value Reference Range Interpretation [...] U/L 38-126 N (test code = ALKP) [id number] 05:13:00 Test Item Value Reference Range Interpretation Comments MAGNESIUM (test code = MAG) mg/dL 1.6-2.3 CBC W/AUTO [id number] 05:02:00 Test Item Value Reference Range Interpretation [...] = BA#) 0.06 x10 3/uL 0.0-0.1 N [id number] 23:26:00 Test Item Value Reference Range Interpretation Comments GLUBED (test code = GLUBED) 270 MG/DL 74-106 H [id number] 18:08:00 Test Item Value Reference Range Interpretation Comments GLUBED (test code = GLUBED) 391 MG/DL 74-106 H [id number] 12:57:00 Test Item Value Reference Range Interpretation Comments GLUBED (test code = 403 MG/DL 74-106 HH Read Karla k to GLUBED) A VENOUS SPECIMEN SHOULD BE ORDERED FOR GLU COSE VERIFICATION IF MEDICALLY NECESSARY. [id number] 11:31:00 Test Item Value Reference Range Interpretation Comments GLUBED (test code = GLUBED) 332 MG/DL 74-106 H [id number] 06:51:00 Test Item Value Reference Range Interpretation [...] code = LDLC) CORONARY RISK FACTOR 12.15 CHOL/H DL RISK MALE: (test code = RISK) 1/2 AVG 3 .43 FEMALE: 1/2 AVG 3.27 A VG 4.97 AVG 4.44 2 X AVG 9.55 2X AVG 7.0 5 3X AVG 23.39 3X AV G 11.04~~~~~~~~~~ ~~~~~ ~~~~~~~~~~~~~~~ ~~~~~ ~~~~~~~~~~~~~~~ ~~~~~ ~~~~~National Cholesterol Education (NCEP ) Guidelines:~~~~ ~~~~~ ~~~~~~~~~~~~~~~ ~~~~~ ~~~~~~~~~~~~~~~ ~~~~~ ~~~~~~~~~~~ H DL Cholesterol<4 0mg/d L: HDL Choleste rol (Major risk fac tor for CHD)>60mg/d L: HDL Cholesterol (Negative risk factor for CHD)40-59mg/dL: Borderline Risk LDL Cholesterol<1 00mg/ dL: Desirable L DL-C tyxnhaurdjyqr52 0-159 mg/dL: Borderli ne High Risk LDL-C zdxejlrauylbx57 0-189 mg/dL: High ris k LDL-C concentra tion HDL-LDL Cholest oliver is affected by a number of facto rs suchas smoking, age and sex.~~~~~~~~~~~ ~~~~~ ~~~~~~~~~~~~~~~ ~~~~~ ~~~~~~~~~~~~~~~ ~~~~~ ~~~~ LIPID PROFILE (CORONARY RISK)2019-04-10 01:22:00 Test Item Value Reference Range Interpretation Comments TRIGLYCERIDES (test mg/dL code = TRIG) CHOLESTEROL (test code 243 mg/dL CRISTA STEROL REFERENCE = CHOL) RANGE:DESIRABLE : < 200 mg/dLBORDER LINE: 200-239 mg/dLHI GH: >=240 mg/dL HDL CHOLESTEROL (test 20 mg/dL 40-59 L code = HDL) LIPOPROTEIN LDL (test mg/dL 32-99 code = LDLC) CORONARY RISK FACTOR 12.15 CHOL/H DL RISK MALE: (test code = RISK) 1/2 AVG 3 .43 FEMALE: 1/2 AVG 3.27 AV G 4.97 AVG 4.44 2X AV G 9.55 2X AVG 7.05 3X AVG 23.39 3X AVG 11.04~~~~~~~~~~ ~~~~~~ ~~~~~~~~~~~~~~~ ~~~~~~ ~~~~~~~~~~~~~~~ ~~~~~~ ~~National Cholesterol Edu cation (NCEP) Guidelines:~~~~ ~~~~~~ ~~~~~~~~~~~~~~~ ~~~~~~ ~~~~~~~~~~~~~~~ ~~~~~~ ~~~~~~~~ HDL Cholesterol<4 0mg/dL : HDL Cholester ol (Major risk fac tor for CHD)>60mg/d L: HDL Cholesterol (Ne gative risk factor for CHD)40-59mg/dL: Borderline Risk LDL Cholesterol<1 00mg/d L: Desirable LD L-C zruknkjvtczsx17 0-159m g/dL: Borderlin e High Risk LDL-C fgahfwytnjngu08 0-189m g/dL: High risk LDL-C concentration H DL-LDL Cholesterol is affected by a n umber of factors such as smoking, age an d sex.~~~~~~~~~~~ ~~~~~~ ~~~~~~~~~~~~~~~ ~~~~~~ ~~~~~~~~~~~~~~~ ~~~~~~ ~ HGBA1C - GLYCOSYLATED [id number] 00:29:00 Test Item Value Reference Range Interpretation Comments GLYCOSYLATED 10.3 % 0-5.9 H Current guideli ben HEMOGLOBIN (HA1C) recommend a treatment goal (test code = GLYHGB) of <7% fordiabetic patients. A1c m ay be overestimated i n diabeticpatient s exhibiting poor control an d who are alsoheterozygou s or homozygous for HgbS or HgbC. Totalglyc ohemoglobin is a better ind icator of diabetic contro l inpatients with these hemo globin variants. - CT HEAD/BRAIN W/O [id number] 23:39:00 FAX: Irais Alcantara [phone] [place]: St: REG Name: WALKERGABRIEL [facility] : 1960 Age/S: 58/[address] Unit: [id number] Loc: [place] [address] Phys: Irais River NP Acct:[id number] Dis Date: Status: REG ER PHONE #: [phone] Exam Date: 04/09/20192327 FAX #: [phone] Reason: headache, htn EXAMS: CPT CODE: [id number] CT HEAD/BRAIN W/O CONT 78675 Examination: Noncontrast head CT Indication: Headache Comparison: None Location: R16 Technique: Multiple CT images of the brain were obtained from the skull base to the vertex. No intravenous contrast was administered. One or more of the following dose reduction techniques were used: Automated exposure control, adjustment of the mA and/or kV according to patient size, and/or utilization of iterative reconstruction technique. Findings: There is prominence of the ventricles and sulci consistent with mild supratentorial cerebral volume loss. The basilar cisterns are patent. There is no intracranial hemorrhage or mass effect. No intra-axial or extra-axial fluid collections are seen. There is diffuse periventricular and subcortical white matter hypodensities which [...] 1 Signed Report (CONTINUED) FAX: Irais Alcantara [phone] [place]: St: REG Name: GABRIEL WALKER [facility] : 1960 Age/S: 58/M [address] Unit: [id number] Loc: [place] [address] Phys: Irais River NP Acct: [id number] Dis Date: Status: REG ER PHONE #: [phone] Exam Date: 04/09/20192327 FAX #: [phone] Reason: headache, htn EXAMS: CPT CODE: [id number] CT HEAD/BRAIN W/O CONT 36897 (Continued) CC: Irais River NP Technologist: Nadeem Theodore Trnakrd Dt/Tm: 04/09/2019 (2339) [email or web address] Orig Print D/T: S: 04/09/2019 (2342 PAGE 2 Signed ReportCOMPREHENSIVE METABOLIC [id number] 23:25:00 Test Item Value Reference Range Interpretation Comments SODIUM (test code = 129 mmol/L 137-145 L NA) POTASSIUM (test code = 4.4 mmol/L 3.4-5.0 N K) CHLORIDE (test code = 97 mmol/L 98-107 L CL) CARBON DIOXIDE (test 20 mmol/L 22-30 L code = CO2) GLUCOSE (test code = 563 mg/dL 74-106 HH Critica l Value GLU) reported toFirs t Name:[id number] La st Name:RESULTS RE AD BACK AND CHU JEAN-BAPTISTE.MG, on 04/09/19, @ 232 4. OK TO [...] N (test code = ALKP) CBC W/AUTO [id number] 23:16:00 Test Item Value Reference Range Interpretation [...] 3/uL 0.0-0.1 N - XR CHEST 1 [id number] 23:12:00 FAX: Irais Alcantara [phone] [place]: St: REG Name: GABRIEL WALKER [facility] : 1960 Age/S: 58/M [address] Unit #: [id number] Loc: [place] [address] Phys: Irais River NP Acct: [id number] Dis Date: Status: REG ER PHONE #: [phone] Exam Date: 04/09/20192254 FAX #: [phone] Reason: elevated bp EXAMS: CPT CODE: [id number] XR CHEST 1 V 13764 Examination: One view chest x-ray Location code: H60 Comparison: None Discussion: Clinical history is remarkable for elevatedblood pressure. Heart is normal in size. Lungs are clear of consolidating infiltrates. No masses, nodules or effusions identified. Impression: 1. Normal one view chest x-ray. 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 08 ng/mL - TROPIRAP) Negative>0.08 n g/mL - Positive The us [...]
[2022-04-20] MEDS ORDERED: MORPHINE 4 MG/ML SYR ONE (21:54)
[2022-04-20] MEDS ORDERED: ONDANSETRON 4 MG/2 ML VIAL ONE (21:54)
[2022-04-20 22:27] LABS: Absolute Lymphocytes (CBC) 2.1 K/uL (0.7-4.9); Hematocrit 29.7 % (39.6-49.0); Lymphocytes % 26.5 % (15.3-44.8); MCV 91.4 fL (80-100); MPV 8.1 fL (7.6-11.3); RBC Red Blood Cell Count 3.25 M/uL (4.33-5.43)
[2022-04-20 22:42] LABS: Albumin 3.8 g/dL (3.4-5.0); Bilirubin Total 0.2 mg/dL (0.2-1.0); Protein, Total 7.4 g/dL (6.4-8.2); Troponin High Sensitivity 10.3 pg/mL (<58.9)
[2022-04-20 22:45] LABS: Magnesium 1.6 mg/dL (1.6-2.4)
[2022-04-21] MEDS ORDERED: METHYLPREDNISOLONE 125 MG INJ ONE (00:53)
[2022-04-21] MEDS ORDERED: KETOROLAC 30 MG/ML INJ ONE (00:53)
[2022-04-21] MEDS ORDERED: MORPHINE 4 MG/ML SYR ONE (02:20)
[2022-04-21 04:01] VITALS: TEMP 97.1
[2022-04-21 04:22] VITALS: BP 133/79; O2SAT 98
--- NOTE | 2022-04-21 09:41 | RAD REPORT ---
EXAM DESCRIPTION: Chest For Pe Angio CLINICAL HISTORY: 61 years Male Chest pain;Dyspnea COMPARISON: None TECHNIQUE: Images were obtained in axial, sagittal, and coronal planes. Intravenous contrast was ins erted. 3-D MIP imaging was performed. Image degradation related to patient body size. This exam was performed according to our departmental dose-optimization program which includes use of Automated Exposure Control, adjustment of the mA and/or kV according to patient size and/or use of i terative reconstruction technique. FINDINGS: No filling defects pulmonary arteries bilaterally. No aortic dissection or dilatation. No right heart strain. No pericardial or pleural effusions bilaterally. No adenopathy. No lung parenchymal infiltrates or nodules seen. No pneumothorax. No abnormality upper abdomen. No acute osseous abnormality. IMPRESSION: No evidence for pulmonary embolus. No aortic dissection or dilatation. No infiltrate see n. Electronically signed by: Raven Merrill MD 04/20/2022 11:40 PM [employer] Due to temporary technical issues with the PACS/Fluency reporting system, reports are being signed by the in house radiologists without review as a courtesy to insure prompt reporting. The interpreting radiologist is fully responsible for the content of the report.
--- NOTE | 2022-04-21 13:02 | EKG ---
Test Date: 2022-04-20 Test Time: 21:10:12 Crm Technical Lead: LL MEASUREMENT RESULTS: Intervals: Rate: 91 TN: 162 QRSD: 126 QT: 358 QTc: 440 [place]: P: 42 TN: 162 QRS: -65 T: 70 INTERPRETIVE STATEMENTS: Normal sinus rhythm Left axis deviation Nonspecific intraventricular block Cannot rule out Septal infarct, age undetermined Abnormal ECG Compared to ECG 11/21/2020 10:43:14 Left-axis deviation now present Left anterior fascicular block no longer present Myocardial infarct finding still present Electronically Signed On 04-21-22 13:01:21 MILK PROCESSING WORKER by Terrance Melo
--- NOTE | 2022-05-07 14:09 | ER ---
Nurse's Notes [facility] Name: Gabriel Walker Age: 61 yrs Sex: Male : 1960 Arrival Date: 04/20/2022 Time: 20:56 Bed 8 Private MD: Diagnosis: Chest pain, unspecified Presentation: 04/20 21:01 Chief complaint: Patient states: C/o chest pain 10/10, and SOB, pt states pain started ll3 2 hrs [employer]. Coronavirus screen: Vaccine status: Patient reports being unvaccinated. At this time, the client does not indicate any symptoms associated with coronavirus-19. Ebola Screen: No symptoms or risks identified at this time. Initial Sepsis Screen: Does the patient meet any 2 criteria? No. Patient's initial sepsis screen is negative. Does the patient have a suspected source of infection? No. Patient's initial sepsis screen is negative. Risk Assessment: Do you want to hurt yourself or someone else? Patient reports no desire to harm self or others. Onset of symptoms was April 20, 2022 at 19:00. Care prior to arrival: Medication(s) given: Motrin, 600 mg, 2000. 21:01 Method Of Arrival: Ambulatory ll3 21:01 Acuity: PARVIN 2 ll3 Historical: - Allergies: 21:03 Codeine; "makes nauseous"; ll3 - Home Meds: 21:03 glipizide 10 mg Oral tab 1 tab once daily [Active]; lisinopril 40 mg Oral tab [Active]; ll3 Metformin Oral [Active]; - PMHx: 21:03 Diabetes - NIDDM; GERD; Hypertension; ll3 - PSHx: 21:03 Tonsillectomy; ll3 - Immunization history:: Client reports having NOT received the Covid vaccine. - Social history:: Smoking status: Patient reports the use of cigarette tobacco products, smokes two packs cigarettes per day. Screenin:03 Abuse screen: Denies threats or abuse. Denies injuries from another. Nutritional aa9 screening: On. Tuberculosis screening: No symptoms or risk factors identified. 04/21 01:17 [facility] ED Fall Risk Assessment (Adult) History of falling in the last 3 months, vc1 including since admission No falls in past 3 months (0 pts) Confusion or Disorientation No (0 pts) Intoxicated or Sedated No (0 pts) Impaired Gait No (0 pts) Mobility Assist Device Used No (0 pt) Altered Elimination No (0 pt) Score/Fall Risk Level 0 - 2 = Low Risk Oriented to surroundings, Maintained a safe environment, Educated pt \\T\\ family on fall prevention, incl call for assistance when getting out of bed. Assessment: 04/20 21:54 General: Appears uncomfortable, Behavior is cooperative, anxious. aa9 21:54 Pain: Complains of pain in chest Pain does not radiate. Pain currently is 9 out of 10 aa9 on a pain scale. Quality of pain is described as stabbing, Pain began suddenly, Noted to be grimacing, moaning, resistant to movement. Neuro: Level of Consciousness is awake, alert, obeys commands, Oriented to person, place, time, situation. Cardiovascular: Patient's skin is warm and dry. Respiratory: Airway is patent Respiratory effort is even, unlabored. GI: Patient currently denies nausea, vomiting. : No signs and/or symptoms were reported regarding the genitourinary system. 22:04 Reassessment: DDIMER lab result [id number], notified Francisco SORENSON. aa9 04/21 00:00 Reassessment: No changes from previously documented assessment. Patient and/or family vc1 updated on plan of care and expected duration. Pain level reassessed. 01:12 Reassessment: No changes from previously documented assessment. Patient and/or family vc1 updated on plan of care and expected duration. Pain level reassessed. Patient is alert, oriented x 3, equal unlabored respirations, skin warm/dry/pink. 02:26 Reassessment: Patient appears in no apparent distress at this time. Patient and/or aa9 family updated on plan of care and expected duration. Pain level reassessed. Patient is alert, oriented x 3, equal unlabored respirations, skin warm/dry/pink. Patient states symptoms have improved. Vital Signs: 04/20 21:01 BP 172 / 80; Pulse 90; Resp 18; Temp 97.1(TE); Pulse Ox 97% on R/A; Weight 113.4 kg ll3 (R); Height 6 ft. 1 in. (R); Pain 10/10; 22:00 BP 122 / 74; Pulse 90; Resp 16 S; Pulse Ox 93% on R/A; aa9 23:00 BP 136 / 75; Pulse 82; Resp 22; Pulse Ox 95% on R/A; vc1 04/21 00:00 BP 136 / 89; Pulse 81; Resp 22; Pulse Ox 94% on R/A; vc1 01:00 BP 133 / 77; Pulse 77; Resp 24; Pulse Ox 94% ; vc1 01:16 BP 136 / 75; Pulse 82; Resp 22; Pulse Ox 95% ; vc1 02:26 BP 133 / 79; Pulse 77; Resp 17 S; Pulse Ox 98% on R/A; aa9 04/20 21:01 Body Mass Index 32.98 (113.40 kg, 185.42 cm) ll3 04/20 21:01 Pain Scale: Adult ll3 ED Course: 04/20 20:56 Patient arrived in ED. ja2 21:03 Triage completed. ll3 21:03 Arm band placed on. ll3 21:07 Domonique Singh FNP-C is PHCP. kb 21:07 Tiffany Flores MD is Attending Physician. kb 21:31 XRAY Chest (1 view) In Process Unspecified. EDMS 21:50 Inserted saline lock: 20 gauge in left wrist, using aseptic technique. Blood collected. aa9 22:15 Patient maintains SpO2 saturation greater than 95% on room air. aa9 23:00 Patient has correct armband on for positive identification. Client placed on continuous vc1 cardiac and pulse oximetry monitoring. NIBP monitoring applied. 23:04 CT Chest For PE Angio In Process Unspecified. EDMS 04/21 00:46 Elva Ventura, RN is Primary Nurse. vc1 00:46 Troponin High Sensitivity Sent. vc1 01:17 No provider procedures requiring assistance completed. vc1 02:27 IV discontinued, intact, bleeding controlled, No redness/swelling at site. Pressure aa9 dressing applied. Administered Medications: 04/20 21:50 Drug: Ondansetron IVP 4 mg Route: IVP; Site: left wrist; aa9 23:00 Follow up: Response: No adverse reaction; Marked relief of symptoms vc1 21:55 Drug: morphine IVP or IV 4 mg Route: IVP; Infused Over: 4 mins; Site: left wrist; aa9 23:00 Follow up: Response: No adverse reaction; Marked relief of symptoms; Pain is decreased; vc1 RASS: Alert and Calm (0) 0308 01:16 Follow up: BP 136 / 75; Pulse 82 bpm; Resp 22 bpm; Pulse Ox 95% vc1 00:55 Drug: MethylPrednisoLONE IVP 125 mg Route: IVP; Site: left wrist; vc1 02:19 Follow up: Response: No adverse reaction aa9 00:55 Drug: Ketorolac IVP 15 mg Route: IVP; Site: left wrist; vc1 02:19 Follow up: Response: No adverse reaction aa9 02:26 Drug: morphine IVP or IV 4 mg Route: IVP; Infused Over: 4 mins; Site: left wrist; aa9 02:27 Follow up: Response: No adverse reaction aa9 Medication: 01:17 VIS not applicable for this client. vc1 Outcome: 01:50 Discharge ordered by . kb 02:27 Discharged to home ambulatory, with significant other. aa9 02:27 Condition: stable 02:27 Discharge instructions given to patient, Instructed on discharge instructions, follow up and referral plans. medication usage, Demonstrated understanding of instructions, follow-up care, medications, Prescriptions given X 2. 02:27 Patient left the ED. aa9 Signatures: Dispatcher [employer] EDMS Domonique Singh, TRIMMING CASER-C TRIMMING CASER-Ckb Dolores Barber ja2 Geoff Fernandez RN RN ll3 Elva Ventura RN RN vc1 Kay Bowman RN RN aa9 Corrections: (The following items were deleted from the chart) 03 22:39 22:15 Inserted saline lock: 20 gauge in left wrist, using aseptic technique. Blood aa9 collected. aa9
--- NOTE | 2022-05-07 14:09 | EDPHYS ---
Physician Documentation [facility] Name: Gabriel Walker Age: 61 yrs Sex: Male : 1960 Arrival Date: 04/20/2022 Time: 20:56 Bed 8 Private MD: ED Physician Tiffany Flores HPI: 04/20 22:54 This 61 yrs old Male presents to ER via Ambulatory with complaints of Chest Pain. kb 22:54 The patient or guardian reports chest pain that is located primarily in the anterior kb chest wall, left. Onset: 3 hour(s) ago. The pain does not radiate. Associated signs and symptoms: Pertinent positives: shortness of breath. The chest pain is described as sharp. Duration: The patient or guardian reports a single episode. Modifying factors: The symptoms are alleviated by palpation. the symptoms are aggravated by breathing, deep breath. Severity of pain: At its worst the pain was moderate in the emergency department the pain is unchanged. The patient has not experienced similar symptoms in the past. The patient has not recently seen a physician. Historical: - Allergies: 21:03 Codeine; "makes nauseous"; ll3 - Home Meds: 21:03 glipizide 10 mg Oral tab 1 tab once daily [Active]; lisinopril 40 mg Oral tab [Active]; ll3 Metformin Oral [Active]; - PMHx: 21:03 Diabetes - NIDDM; GERD; Hypertension; ll3 - PSHx: 21:03 Tonsillectomy; ll3 - Immunization history:: Client reports having NOT received the Covid vaccine. - Social history:: Smoking status: Patient reports the use of cigarette tobacco products, smokes two packs cigarettes per day. ROS: 22:54 Constitutional: Negative for fever, chills, and weight loss. kb 22:54 Cardiovascular: Positive for chest pain, of the anterior aspect of left upper chest and left lateral anterior chest. 22:54 Respiratory: Positive for shortness of breath. 22:54 All other systems are negative. Exam: 22:25 Constitutional: This is a well developed, well nourished patient who is awake, alert, kb and in no acute distress. Head/Face: Normocephalic, atraumatic. ENT: Moist Mucous membranes Cardiovascular: Regular rate and rhythm with a normal S1 and S2. No gallops, murmurs, or rubs. No pulse deficits. Respiratory: Respirations even and unlabored. No increased work of breathing. Talking in full sentences Abdomen/GI: Soft, non-tender. No distention Skin: Warm, dry with normal turgor. Normal color. MS/ Extremity: Pulses equal, no cyanosis. Neurovascular intact. Full, normal range of motion. Neuro: Awake and alert, GCS 15, oriented to person, place, time, and situation. Moves all extremities. Normal gait. 22:25 ECG was reviewed by the Attending Physician. Vital Signs: 21:01 BP 172 / 80; Pulse 90; Resp 18; Temp 97.1(TE); Pulse Ox 97% on R/A; Weight 113.4 kg ll3 (R); Height 6 ft. 1 in. (R); Pain 10/10; 22:00 BP 122 / 74; Pulse 90; Resp 16 S; Pulse Ox 93% on R/A; aa9 23:00 BP 136 / 75; Pulse 82; Resp 22; Pulse Ox 95% on R/A; vc1 03 00:00 BP 136 / 89; Pulse 81; Resp 22; Pulse Ox 94% on R/A; vc1 01:00 BP 133 / 77; Pulse 77; Resp 24; Pulse Ox 94% ; vc1 01:16 BP 136 / 75; Pulse 82; Resp 22; Pulse Ox 95% ; vc1 02:26 BP 133 / 79; Pulse 77; Resp 17 S; Pulse Ox 98% on R/A; aa9 03 21:01 Body Mass Index 32.98 (113.40 kg, 185.42 cm) ll3 04/20 21:01 Pain Scale: Adult ll3 MDM: 04/20 21:08 Patient medically screened. kb 22:54 Data reviewed: vital signs, nurses notes. kb 22:55 Differential diagnosis: abnormal EKG, acute myocardial infarction, coronary artery kb disease chest wall pain, pleurisy, pneumothorax, pulmonary embolus. Consideration of Admission/Observation Escalation of care including admission/observation considered. Escalation considered due to chest pain complaint. Scoring Tools HEART Score: History: ECG: Age: Risk Factors: 1 or 2 risk factors (1), Troponin: Total Score = 2. ED course: Patient is a 61-year-old male who presents for left chest pain that started approximately 3 hours ago. Pain worse with breathing. Reports pain as sharp. On exam patient has decreased lung sounds due to poor inspiration secondary to pain. Respirations even and unlabored, no distress noted, nontoxic in appearance. Chest x-ray, EKG, serum labs ordered. 04/21 01:49 Counseling: I had a detailed discussion with the patient and/or guardian regarding: the kb historical points, exam findings, and any diagnostic results supporting the discharge/admit diagnosis, lab results, radiology results, the need for outpatient follow up, a family practitioner, to return to the emergency department if symptoms worsen or persist or if there are any questions or concerns that arise at home. 04/20 21:08 Order name: CBC with Diff; Complete Time: 22:34 kb 04/20 21:08 Order name: Magnesium; Complete Time: 22:49 kb 04/20 21:08 Order name: NT PRO-BNP; Complete Time: 22:49 kb 04/20 21:08 Order name: Troponin HS; Complete Time: 22:49 kb 04/20 21:08 Order name: CMP; Complete Time: 22:49 kb 07 21:35 Order name: D-Dimer; Complete Time: 22:06 kb 07 23:50 Order name: Troponin High Sensitivity; Complete Time: 01:49 kb 07 21:08 Order name: XRAY Chest (1 view); Complete Time: 21:38 kb 07 22:07 Order name: CT Chest For PE Angio kb 04/20 21:08 Order name: EKG; Complete Time: 21:09 kb 07 21:08 Order name: Cardiac monitoring; Complete Time: 21:55 kb 04/20 21:08 Order name: EKG - Nurse/Tech; Complete Time: 21:28 kb 07 21:08 Order name: IV Saline Lock; Complete Time: 21:55 kb 0307 21:08 Order name: Labs collected and sent; Complete Time: 21:55 kb 04/20 21:08 Order name: O2 Per Protocol; Complete Time: 21:55 kb 07 21:08 Order name: O2 Sat Monitoring; Complete Time: 21:55 kb EC/07 22:25 Rate is 91 beats/min. Rhythm is regular. Left axis deviation noted. IA interval is kb normal at 162 msec. QRS interval is normal at 126 msec. QT interval is normal at 440 msec. Administered Medications: 21:50 Drug: Ondansetron IVP 4 mg Route: IVP; Site: left wrist; aa9 23:00 Follow up: Response: No adverse reaction; Marked relief of symptoms vc1 21:55 Drug: morphine IVP or IV 4 mg Route: IVP; Infused Over: 4 mins; Site: left wrist; aa9 23:00 Follow up: Response: No adverse reaction; Marked relief of symptoms; Pain is decreased; vc1 RASS: Alert and Calm (0) 04/21 01:16 Follow up: BP 136 / 75; Pulse 82 bpm; Resp 22 bpm; Pulse Ox 95% vc1 00:55 Drug: MethylPrednisoLONE IVP 125 mg Route: IVP; Site: left wrist; vc1 02:19 Follow up: Response: No adverse reaction aa9 00:55 Drug: Ketorolac IVP 15 mg Route: IVP; Site: left wrist; vc1 02:19 Follow up: Response: No adverse reaction aa9 02:26 Drug: morphine IVP or IV 4 mg Route: IVP; Infused Over: 4 mins; Site: left wrist; aa9 02:27 Follow up: Response: No adverse reaction aa9 Disposition Summary: 04/21/22 01:50 Discharge Ordered Location: Home kb Condition: Stable kb Diagnosis - Chest pain, unspecified kb Followup: kb - With: Emergency Department - When: As needed - Reason: Worsening of condition Followup: kb - With: Private Physician - When: 2 - 3 days - Reason: Recheck today's complaints, Continuance of care, Re-evaluation by your physician Discharge Instructions: - Discharge Summary Sheet kb - Nonspecific Chest Pain, Adult, [id number] kb - Pleurisy, [id number] kb Forms: - Medication Reconciliation Form kb - Thank You Letter kb - Antibiotic Education kb - Prescription Opioid Use kb Prescriptions: - Prednisone 20 mg Oral Tablet - take 1 tablet by ORAL route once daily for 5 days; 5 tablet; Refills: 0, kb Product Selection Permitted - Diclofenac Sodium 75 mg Oral tablet,delayed release (DR/EC) - take 1 tablet by ORAL route 2 times per day As needed; 30 tablet; Refills: 0, kb Product Selection Permitted Signatures: Dispatcher [employer] Domonique Russell, MANAGER IN HOME-C MANAGER IN HOME-Geoff Alonso, RN RN ll3 Calcote, Elva, RN RN vc1 Colby, Kay, RN RN aa9
== END 2022-04-21 02:27 | disposition home or self-care (01) ==
LOC: ER 20:55
DX: R07.89 Other chest pain (principal); I10 Essential (primary) hypertension; F17.210 Nicotine dependence, cigarettes, uncomplicated; Z88.5 Allergy status to narcotic agent
CPT/HCPCS: 93005; 85025; 36415; 83735; 85379; 84484 ×2; 80053; 83880; 71275; 71045; 96375; 96374; 99284; Q9967; J2930; J2405

== ENCOUNTER 2022-08-02 11:52 | Emergency (ER) | payer OTHER ==
--- OUTSIDE RECORDS SUMMARY | 2022-08-02 12:21 | XMS REPORT | Continuity of Care Document ---
:1960 Author Organization [facility] t Address [address] [facility] [address]esh. [address] [place] [address] Care Team Providers Name Role Phone Rosita Black Attending Clinician Unavailable Robert Perera Attending Clinician Unavailab Brenton Hernandez Attending Clinician Robert Perera Admitting Clinician Unavailab carmona Payers Payer Name Policy Type Policy Number Effective Date Expiration Date S ource Problems Condition Condition Condition Status Onset Resolution Last Treating Co mments Source Name Details Category Date Date Treatment Clinician Date [id number] Tobacco Problem Commo n use Spirit disorder - [facility]I [facility] [id number] Osteoarthr Problem Co mmon itis of Spirit bilateral - [facility] hips [facility] from hip [facility] [id number] Moderate Problem Common major Spirit depression - [facility] [id number] Type 2 Problem Common diabetes Spirit mellitus - [facility]I with [facility] long-term current use of insulin [id number] Essential Problem Comm on (primary) Spirit hypertensi - CHI on [facility] Hyperglyce Type 2 Problem Commo n ricardo due to diabetes Spir it type 2 mellitus - [facility] diabetes with [facility] [id number] Marijuana Problem Comm on abuse [facility] [id number] Chronic Problem Common obstructiv [facility] e - [facility] type [id number] Gastroesop Problem Co mmon hageal Spirit reflux - CHI disease [facility] esophagiti [facility]ica [facility] [place] [id number] Primary Problem Common insomnia [facility] [id number] Mixed Problem Common hyperlipid [facility] emia [facility] Asthma Asthma Problem Active 2019-03-03 Qamar darnell (disorder) (disorder) 01:36:30 l Active Neche Problem 03/03/2019 Medical Group Simple Simple Problem Active 2019-03-03 Qamar darnell obesity obesity 01:36:30 l (disorder) (disorder) He rmann Active Problem 03/03/2019 Medical Group Allergies, Adverse Reactions, Alerts Allergy Allergy Status Severity Reaction(s) Onset Inactive Treating Comm ents Source Name Type Date Date Clinician codeine DA Active MO 2018-02 [facility] 04-11 [facility] 00:00: d 00 [facility] codeine DA Active MO NAUSEA 2018-02 [facility] 04-11 [facility] 00:00: d 00 [facility] codeine codeine Active Memoria l Nathaniel etodolac etodolac Active Unknown Commo n [facility] Social History Social Habit Start Date Stop Date Quantity Comments Source History of Current Smoker Common Spi rit - Tobacco Use [facility] Sex Assigned At Common Sp clive - [facility] Social History 2019-02-28 2019-02-28 Leisa vivar 16:57:58 16:57:58 Smoking Status Start Date Stop Date Source Current Smoker 2021-11-04 00:00:00 Common Spiri t [facility] Medications Ordered Filled Start Stop Current Ordering Indication Dosage Frequency Signature Comments Components Source Medication Medication Date Date Medication? Clinician (SIG) Name Name lisinopril Yes 40 mg = 1 Me moria 40 mg oral 1-15 tab, PO, l tablet 17:19: Daily, # Nathaniel 00 90 tab, 0 Refill(s), Pharmacy: [facility] 297 Fluticasone Yes 1 spray, Me moria propionate 1-15 NASAL, l 0.05 17:19: BID, # 16 Neche MG/ACTUAT 00 gm, 0 Metered Refill(s), Dose Nasal Pharmacy: [place] [facility] lisinopril 2019-0 Yes 40 mg = 1 Me moria 40 mg oral 1-15 tab, PO, l tablet 17:19: Daily, # Nathaniel 00 90 tab, 0 Refill(s), Pharmacy: [facility] Fluticasone 2019-0 Yes 1 spray, Me moria propionate 1-15 NASAL, l 0.05 17:19: BID, # 16 Nathaniel MG/ACTUAT 00 gm, 0 Metered Refill(s), Dose Nasal Pharmacy: [place] [facility] Ventolin 2019-0 Yes 2 puff, Memori a HFA 90 1-15 INHALER, l mcg/inh 17:18: QID, PRN Ronald n inhalation 00 wheezing, aerosol coughing, with or adapter shortness of breath, # 1 ea, 0 Refill(s), Pharmacy: [place] [id number] Esomeprazol 2019-0 Yes 40 mg = 1 M emoria e 40 MG 1-15 cap, PO, l Enteric 17:18: Daily, # Ronald n Coated 00 90 tab, 1 Capsule Refill(s), Pharmacy: [facility] Ventolin 0 Yes 2 puff, Memori a HFA 90 1-15 INHALER, l mcg/inh 17:18: QID, PRN Ronald n inhalation 00 wheezing, aerosol coughing, with or adapter shortness of breath, # 1 ea, 0 Refill(s), Pharmacy: [facility] Esomeprazol 2019-0 Yes 40 mg = 1 M emoria e 40 MG 1-15 cap, PO, l Enteric 17:18: Daily, # Ronald n Coated 00 90 tab, 1 Capsule Refill(s), Pharmacy: [facility] Ventolin 2019-0 No INHALER, Memor ia HFA 90 1-15 PRN l mcg/inh 16:58: wheezing, Rosa Elena nn inhalation 00 coughing, aerosol or with shortness adapter of breath Esomeprazol 2020-0 No 40 mg = 1 M emoria e 40 MG 1-15 cap, PO, l Enteric 16:58: Daily Nathaniel Coated 00 Capsule Ventolin 2020-0 No INHALER, Memor ia HFA 90 1-15 PRN l mcg/inh 16:58: wheezing, Rosa Elena nn inhalation 00 coughing, aerosol or with shortness adapter of breath Esomeprazol 2020-0 No 40 mg = 1 M emoria e 40 MG 1-15 cap, PO, l Enteric 16:58: Daily Nathaniel Coated 00 Capsule NexIUM 40 NexIUM 40 No 1{capsu QD [...] 30 MG 30 MG e 30 MG Mirtazapine Mirtazapine No Mirtazapin 30 MG [...] glipiZIDE 10 MG 10 MG 10 MG Vital Signs Vital Name Observation Time Observation Value Comments Source height 2021-11-04 10:40:00 71 [in_i] [facility] weight 2021-11-04 10:40:00 234 [lb_av] [facility] temperature 2021-11-04 10:40:00 97.4 [degF] [facility] bmi 2021-11-04 10:40:00 32.63 kg/m2 [facility] oximetry 2021-11-04 10:40:00 94 % [facility] respiratory rate 2021-11-04 10:40:00 17 /min Comm on [facility] blood pressure 2021-11-04 10:40:00 134 mm[Hg] [facility] - systolic [facility] blood pressure 2021-11-04 10:40:00 82 mm[Hg] [facility] - diastolic [facility] height 2021-07-27 08:00:00 68 [in_i] [facility] weight 2021-07-27 08:00:00 238.6 [lb_av] [facility] temperature 2021-07-27 08:00:00 98.5 [degF] [facility] bmi 2021-07-27 08:00:00 36.28 kg/m2 Common S [facility] oximetry 2021-07-27 08:00:00 96 % Common S [facility] respiratory rate 2021-07-27 08:00:00 16 /min Comm on [facility] blood pressure 2021-07-27 08:00:00 132 mm[Hg] Common [facility] - systolic [facility] blood pressure 2021-07-27 08:00:00 78 mm[Hg] Common [facility] - diastolic [facility] height 2021-07-27 08:00:00 68 [in_i] Common S [facility] weight 2021-07-27 08:00:00 238.6 [lb_av] [facility] temperature 2021-07-27 08:00:00 98.5 [degF] [facility] bmi 2021-07-27 08:00:00 36.28 kg/m2 [facility] oximetry 2021-07-27 08:00:00 96 % [facility] respiratory rate 2021-07-27 08:00:00 16 /min Comm on [facility] blood pressure 2021-07-27 08:00:00 132 mm[Hg] [facility] - systolic [facility] blood pressure 2021-07-27 08:00:00 78 mm[Hg] Common [facility] - diastolic [facility] height 2021-07-01 08:20:00 68 [in_i] Common S [facility] weight 2021-07-01 08:20:00 237 [lb_av] Common S [facility] temperature 2021-07-01 08:20:00 98.2 [degF] Common S [facility] bmi 2021-07-01 08:20:00 36.03 kg/m2 [facility] oximetry 2021-07-01 08:20:00 96 % [facility] respiratory rate 2021-07-01 08:20:00 18 /min Comm on [facility] Systolic (mm Hg) 2019-02-28 16:53:00 Qamar Armstrong Diastolic (mm Hg) 2019-02-28 16:53:00 Mem veronica Armstrong Heart Rate 2019-02-28 16:53:00 Leisa Benderann Temperature Oral (F) 2019-02-28 16:53:00 98.1 F [facility] Nathaniel Height 2019-02-28 16:53:00 185.42 cm [facility] Nathaniel Weight 2019-02-28 16:53:00 Memorial Neche BMI Calculated 2019-02-28 16:53:00 Memori al Neche Procedures This patient has no known procedures. Encounters Start End Encounter Admission Attending Care Care Encounter Source Date/Time Date/Time Type Type Clinicians Facility Department ID 2022-07-26 Outpatient Black, [facility]MLC [facility] [id number] Common 13:16:00 Rosita [address] [facility] 2021-11-02 Outpatient Black, [facility]LML[facility] [id number] Common 09:24:02 Rosita [facility] 2021-07-22 Outpatient Black, ST[facility] [id number] Common 14:26:03 Rosita [facility] 2021-06-18 Outpatient Black, [facility] [id number] Common 14:04:03 [facility] 2019-04-10 Inpatient EM Yasir-Laws [facility] MED [id number] [facility] 00:22:00 on, 45 King[place] Oluwabomila d [facility] 2021-11-04 2021-11-04 OFFICE STLC [facility] [id number] Co mmon 00:00:00 00:00:00 VISIT [facility] ESTAB PT - CHI LEVEL 4 [facility] 2021-07-27 2021-07-27 OFFICE STLC [facility] [id number] Co mmon 00:00:00 00:00:00 VISIT [facility] ESTAB PT - CHI LEVEL 4 [facility] 2021-07-27 2021-07-27 (MCR WELL) [facility] [id number] Common 00:00:00 00:00:00 Medicare Spiri t Wellness - CHI [facility] 2021-07-24 2021-07-24 (TEL) STLC STLC [id number] Co mmon 00:00:00 00:00:00 Spirit - [facility] 2021-07-01 2021-07-01 OFFICE [facility] [id number] Co mmon 00:00:00 00:00:00 VISIT NEW Spir it PT LEVEL 4 - CHI [facility] 2019-02-28 2019-03-01 Outpatient nullFlavo [facility] [id number] Memoria 17:00:00 05:59:59 r Primary 00 l Care [facility] 2019-02-28 2019-03-01 Outpatient nullFlavo [facility] [id number] Memoria 17:00:00 05:59:59 r Primary 00 l Care [facility] 2019-02-28 2019-02-28 Outpatient Sandoval, [facility] [id number] 11:00:00 23:59:59 Brenton 00 2019-02-28 2019-02-28 Outpatient [facility] [id number] Memoria 11:00:00 11:00:00 00 l Nathaniel Results Test Description Test Time Test Comments Results Result Comments Source GLUBED 2019-04-11 11:11:00 Test Item Value Reference Range Interpretation Comme nts GLUBED (test code = GLUBED) 370 MG/DL 74-106 H [id number] 05:57:00 Test Item Value Reference Range Interpretation Comments GLUBED (test code = GLUBED) 289 MG/DL 74-106 H COMPREHENSIVE METABOLIC [id number] 05:17:00 Test Item Value Reference Range Interpretation [...] U/L 38-126 N (test code = ALKP) [id number] 05:17:00 Test Item Value Reference Range Interpretation Comments MAGNESIUM (test code = MAG) 1.4 mg/dL 1.6-2.3 L COMPREHENSIVE METABOLIC [id number] 05:13:00 Test Item Value Reference Range Interpretation [...] U/L 38-126 N (test code = ALKP) [id number] 05:13:00 Test Item Value Reference Range Interpretation Comments MAGNESIUM (test code = MAG) mg/dL 1.6-2.3 CBC W/AUTO [id number] 05:02:00 Test Item Value Reference Range Interpretation [...] = BA#) 0.06 x10 3/uL 0.0-0.1 N [id number] 23:26:00 Test Item Value Reference Range Interpretation Comments GLUBED (test code = GLUBED) 270 MG/DL 74-106 H [id number] 18:08:00 Test Item Value Reference Range Interpretation Comments GLUBED (test code = GLUBED) 391 MG/DL 74-106 H [id number] 12:57:00 Test Item Value Reference Range Interpretation Comments GLUBED (test code = 403 MG/DL 74-106 HH Read Karla k to GLUBED) A VENOUS SPECIMEN SHOULD BE ORDERED FOR GLU COSE VERIFICATION IF MEDICALLY NECESSARY. [id number] 11:31:00 Test Item Value Reference Range Interpretation Comments GLUBED (test code = GLUBED) 332 MG/DL 74-106 H [id number] 06:51:00 Test Item Value Reference Range Interpretation [...] code = LDLC) CORONARY RISK FACTOR 12.15 CHOL/ HDL RISK (test code = RISK) MALE: 1/2 AVG 3.43 FEMALE: 1/2 AVG 3.27 AVG 4.97 AVG 4. 44 2X AVG 9.55 2X AVG 7.05 3X AVG 23.39 3 X AVG 11.04~~~~~~~~~~ ~~~~~ ~~~~~~~~~~~~~~~ ~~~~~ ~~~~~~~~~~~~~~~ ~~~~~ ~~~~~National Cholesterol Education (NCEP ) Guidelines:~~~~ ~~~~~ ~~~~~~~~~~~~~~~ ~~~~~ ~~~~~~~~~~~~~~~ ~~~~~ ~~~~~~~~~~~ HDL Cholesterol<4 0mg/d L: HDL Choleste rol (Major risk fac tor for CHD)>60mg/d L: HDL Cholesterol (Negative risk factor for CHD)40-59mg/dL: Borderline Risk LDL Cholesterol<1 00mg/ dL: Desirable L DL-C rhfvvxlcdiktn08 0-159 mg/dL: Borderli ne High Risk LDL-C gbhefgaxnbkil71 0-189 mg/dL: High ris k LDL-C concentra [...] 3.27 AV G 4.97 AVG 4.44 2X AVG 9.55 2X AVG 7.05 3X AVG 23.39 3X AVG 11.04~~~~~~~~~~ ~~~~~~ ~~~~~~~~~~~~~~~ ~~~~~~ ~~~~~~~~~~~~~~~ ~~~~~~ ~~National Cholesterol Edu cation (NCEP) Guidelines:~~~~ ~~~~~~ ~~~~~~~~~~~~~~~ ~~~~~~ ~~~~~~~~~~~~~~~ ~~~~~~ ~~~~~~~~ HDL Cholesterol<4 0mg/dL : HDL Cholester ol (Major risk fac tor for CHD)>60mg/d L: HDL Cholesterol (Ne gative risk factor for CHD)40-59mg/dL: Borderline Risk LDL Cholesterol<1 00mg/d L: Desirable LD L-C advnemztscuwt70 0-159m g/dL: Borderlin e High Risk LDL-C ozzjsqsvfvcle03 0-189m g/dL: High risk LDL-C concentration H DL-LDL Cholesterol is affected by a n umber of factors such as smoking, age an d sex.~~~~~~~~~~~ ~~~~~~ ~~~~~~~~~~~~~~~ ~~~~~~ ~~~~~~~~~~~~~~~ ~~~~~~ ~ HGBA1C - GLYCOSYLATED [id number] 00:29:00 Test Item Value Reference Range Interpretation [...] hemo globin variants. - CT HEAD/BRAIN W/O [id number] 23:39:00 FAX: Irais Alcantara [phone] [place]: St: REG Name: GABRIEL WALKER [facility] : 1960 Age/S: 58/[address] Unit: [id number] Loc: [place] [address] Phys: Irais River SWITCHING CLERK Acct:[id number] Dis Date: Status: REG ER PHONE #: [phone] Exam Date: 04/09/20192327 FAX #: [phone] Reason: headache, htn EXAMS: CPT CODE: [id number] CT HEAD/BRAIN W/O CONT 79356 Examination: Noncontrast head CT Indication: Headache Comparison: [...] evaluation for underlying acute infarct difficult The vi sualized paranasal sinuses and mastoid air cells are clear. Impression: 1. No acute intracranial hemorrhage or significant mass effect 2. Additional findings as above at 2339 Reported and signed by: Elaine Hatch MD PAGE 1Signed Report (CONTINUED) FAX: Irais Alcantara [phone] [place]: St: REG Name: GABRIEL WALKERwood : 1960 Age/S: 58/M [address] Unit: [id number] Loc: [place] [address] Phys: Irais River NP Acct: [id number] Dis Date: Status: REG ER PHONE #: [phone] Exam Date: 2327 FAX #: [phone] Reason: headache, htn EXAMS: CPT CODE: [id number] CT HEAD/BRAIN W/OCONT 94238 (Continued) CC: Irais River NP Technologist: Nadeem Theodore [facility] Dt/Tm: 04/09/2019 (2339) CarrieSR31 Orig Print D/T: S: 04/09/2019 (2342 PAGE 2 Signed ReportCOMPREHENSIVE METABOLIC [id number] 23:25:00 Test Item Value Reference Range Interpretation Comments SODIUM (test code = 129 mmol/L 137-145 L NA) POTASSIUM (test code = 4.4 mmol/L 3.4-5.0 N K) CHLORIDE (test code = 97 mmol/L 98-107 L CL) CARBON DIOXIDE (test 20 mmol/L 22-30 L code = CO2) GLUCOSE (test code = 563 mg/dL 74-106 HH Critica l Value GLU) reported toFirs t Name:[id number] [facility] Name:RESULTS RE AD BACK AND CHU MendozaLAB.MG, on 04/09/19, @ 232 4. OK TO [...] N (test code = ALKP) CBC W/AUTO [id number] 23:16:00 Test Item Value Reference Range Interpretation [...] 3/uL 0.0-0.1 N - XR CHEST 1 [id number] 23:12:00 FAX: Irais Alcantara [phone] [place]: St: REG Name: [place]ABRIEL WALK[place] : 1960 Age/S: 58[address] Unit #: [id number] Loc: [place] [address] Phys: Irais River SWITCHING CLERK Acct: [id number] Dis Date: Status: REG ER PHONE #: [phone] Exam Date: 04/09/20197 FAX #: [phone] Reason: elevated bp EXAMS: CPT CODE: [id number] XR CHEST 1 V 72349 Examination: One view chest x-ray Location code: [...] PAGE 1 Signed Report FAX: Irais Alcantara [phone] [place]: St: REG Name: GABRIEL WALKERwood :1960 Age/S: 58/M [address] Unit #: [id number] Loc: [place] [address] Phys: Irais River SWITCHING CLERK Acct: [id number] Dis Date: Status: REG ER PHONE #: [phone] Exam Date: 5 FAX #: [phone] Reason: elevated bp EXAMS: CPT CODE: [id number] XR CHEST 1 V 73613(Continued) Orig Print D/T: S: 04/09/2019 (8598) PAGE 2 Signed ReportCBC W/AUTO [id number] 23:07:00 Test Item Value Reference Range Interpretation [...] 0.06 x10 3/uL 0.0-0.1 N TROPONIN I [id number] 23:05:00 Test Item Value Reference Range Interpretation [...] valid only if similar methodology is used. Notes Date/Time Note Provider Source 2019-04-11 12:58:00-00:00 HCAKW [facility] ([facility]) Discharge Summary REPORT#:[id number] REPORT STATUS: Signed DATE:04/11/19 TIME: 1258 PATIENT: GABRIEL WALKER UNIT #: [id number] ROOM/BED: [address] : [birth year] AGE: 58 SEX: M ATTEND: Robert Parks ADM AUTHOR: Martha Trammell * ALL edits or amendments must be made on the el [employer]/computer document * PCP PCP PCP: PCP: No Primary or Family Physician Discharge to: home General Information Date of admission: Observation Start Date: 04/10/19 Date of admission: 04/10/19 Date of discharge: 04/11/19 Hospital course: This is a 58 y/o male: #) HTN Urgency -restart home med lisinopril -add Hydralazine PRN -now stable #) New onset type 2 diabetes -high dose s/s insulin -hgbA1c 10.3 -monitor ac/hs -pt tolerating metformin #) Hypertriglyceridemia/HLD -statin and fenofibrate #) Hyponatremia -monitor #) Headache -CT head negative for acute -tylenol PRN #) Right eye conjunctivitis -started on oral drops in ER, continue -pt has ENT appointment on Tuesday #) Recent ear infection -pt reports was given oral abx -plans to see ENT on Tuesday #) AST/ALT elevated -will monitor #) Tobacco Abuse -start on Nicotine patch daily -smoking cessation education #) Hip pain -pt reports chronic condition -pain control PRN #) DVT prophylaxis -TEDs Patient's blood sugars running in 200s. Last blo od sugar 370 was taken at 10: 56am and patient had just ea ten breakfast around 9:30-10. Patient reports he is tolerating Metformin. Vital signs and labs are s table. Patient to continue statin and fenofibrate. Disc ussed d/c plan with Dr. Richardson and she agrees with d /c home on Metformin with follow-up with PCP in 1-2 weeks. Patient verbalized understanding. Pt. condition on discharge: improved, stable Med Rec PCP PCP: PCP: No Primary or Family Physician Med Rec Discharge meds: Continue taking these medications: LISINOPRIL (ZESTRIL) 40 MG TAB 40 MILLIGRAM ORAL DAILY. ESOMEPRAZOLE MAG DR (NexIUM) 40 MG CAP.DR 40 MILLIGRAM ORAL DAILY. Start taking the following new medications: ATORVASTATIN (LIPITOR) 40 MG TAB 40 MILLIGRAM ORAL DAILY. Qty = 30 No Refills FENOFIBRATE (TRIGLIDE) 160 MG TAB 160 MILLIGRAM ORAL DAILY. Qty = 30 No Refills OMEGA-3 ACID ETHYL ESTERS (LOVAZA) 1 GRAM CAP 2,000 MILLIGRAM ORAL DAILY. Qty = 60 No Refills metFORMIN (GLUCOPHAGE) 500 MG TAB 500 MILLIGRAM ORAL WITH BREAKFAST AND DINNER. Qty = 60 Refills = 1 Objective VS/I O Last Documented: Result Date Time Pulse Ox 96 04/11 1054 B/P 144/82 04/11 1054 B/P Mean 102.8 04/11 1054 Temp 36.9 04/11 1054 Pulse 84 04/11 1054 Resp 20 04/11 1054 O2 Delivery Room air 04/10 1110 Patient Weight Weight (lb): Weight (oz): Weight (kg): 113.636 General appearance: alert, awake, oriented, no a cute distress Head/Eyes: atraumatic, EOMI, normocephalic ENT: moist mucosal membranes Cardiovascular: regular rate rhythm, normal hear t sounds Respiratory: clear to auscultation, no distress GI: soft, non-tender Extremities: moves all, no edema-all extremities Neuro/PRENATAL NURSE: alert, oriented X 3, normal speech Skin: dry Psychiatry: normal affect, normal judgment/insig ht, normal mood Results Findings/Data: Laboratory Tests: 04/11 04/11 04/11 04/10 04/10 1056 0508 0341 2202 1739 Chemistry Sodium (137 - 145 mmol/L) 131 L Potassium (3.4 - 5.0 mmol/L) 4.1 Chloride (98 - 107 mmol/L) 99 Carbon Dioxide (22 - 30 mmol/L) 21 L BUN (9 - 20 mg/dL) 11 Creatinine (0.7 - 1.3 mg/dL) 0.7 Glomerular Filtr Rate (>60) 124 Glucose (74 - 106 mg/dL) 289 H POC Glucose (74 - 106 MG/DL) 370 H 289 H 270 H 391 H Calcium (8.4 - 10.2 mg/dL) 9.0 Magnesium (1.6 - 2.3 mg/dL) 1.4 L Total Bilirubin (0.2 - 1.3 mg/dL) 0.7 Conjugated Bilirubin (0 - 0.3 mg/dL) 0 Unconjugated Bilirubin (0 - 1.1 mg/dL) 0.4 AST (15 - 46 U/L) 88 H ALT (13 - 69 U/L) 119 H Total Alk Phosphatase (38 - 126 U/L) 70 Total Protein (6.3 - 8.2 g/dL) 7.1 Albumin (3.5 - 5.0 g/dL) 4.1 Hematology WBC (5.0 - 12.0 x10 3/uL) 5.5 RBC (4.70 - 6.10 x10 6/uL) 4.15 L Hgb (14.0 - 18.0 g/dL) 12.9 L Hct (37.0 - 49.0 %) 37.2 MCV (80 - 94 fL) 90 MCH (27 - 31 pg) 31.1 H MCHC (33 - 37 g/dL) 34.7 RDW (11.5 - 15.5 %) 12.9 Plt Count (130 - 400 x10 3/uL) 192 MPV (9.4 - 16.4 fL) 10.4 Neut % (Auto) (43 - 65 %) 43.8 Lymph % (Auto) (20.5 - 45.5 %) 42.3 Plumas % (Auto) (5.5 - 11.7 %) 6.4 Eos % (Auto) (0.9 - 2.9 %) 6.0 H Baso % (Auto) (0.2 - 1.0 %) 1.1 H Neut # (Auto) (2.2 - 4.8 x10 3/uL) 2.41 Lymph # (Auto) (1.3 - 2.9 x10 3/uL) 2.32 Plumas # (Auto) (0.3 - 0.8 x10 3/uL) 0.35 Eos # (Auto) (0.0 - 0.2 x10 3/uL) 0.33 H Baso # (Auto) (0.0 - 0.1 x10 3/uL) 0.06 Immature Gran % (0.0 - 2.0 %) 0.4 Nucleated RBC % (0 - 1.0 %) 0.0 Results: labs reviewed, vital signs stable Discharge Instructions Diet: cardiac Activity: as tolerated Prescriptions: e-prescribe Electronically Signed by Martha Trammell on at 0705 RPT #:[id number] END OF REPORT 2019-04-11 12:58:00-00:00 [facility] ([facility]) Discharge Summary REPORT#:[id number] REPORT STATUS: Signed DATE:04/11/19 TIME: 8 PATIENT: GABRIEL WALKER UNIT #: [id number] [address] [birth year] AGE: 58 SEX: M ATTEND: Robert Parks ADM AUTHOR: Martha Trammell * ALL edits or amendments must be made on the [employer]/computer document * PCP PCP PCP: PCP: No Primary or Family Physician Discharge to: home General Information Date of admission: Observation Start Date: 04/10/19 Date of admission: 04/10/19 Date of discharge: 04/11/19 Hospital course: This is a 58 y/o male: #) HTN Urgency -restart home med lisinopril -add Hydralazine PRN -now stable #) New onset type 2 diabetes -high dose s/s insulin -hgbA1c 10.3 -monitor ac/hs -pt tolerating metformin #) Hypertriglyceridemia/HLD -statin and fenofibrate #) Hyponatremia -monitor #) Headache -CT head negative for acute -tylenol PRN #) Right eye conjunctivitis -started on oral drops in ER, continue -pt has ENT appointment on Tuesday #) Recent ear infection -pt reports was given oral abx -plans to see ENT on Tuesday #) AST/ALT elevated -will monitor #) Tobacco Abuse -start on Nicotine patch daily -smoking cessation education #) Hip pain -pt reports chronic condition -pain control PRN #) DVT prophylaxis -TEDs Patient's blood sugars running in 200s. Last blo od sugar 370 was taken at 10: 56am and patient had just ea ten breakfast around 9:30-10. Patient reports he is tolerating Metformin. Vital signs and labs are s table. Patient to continue statin and fenofibrate. Disc ussed d/c plan with Dr. Richardson and she agrees with d /c home on Metformin with follow-up with PCP in 1-2 weeks. Patient verbalized understanding. Pt. condition on discharge: improved, stable Med Rec PCP PCP: PCP: No Primary or Family Physician Med Rec Discharge meds: Continue taking these medications: LISINOPRIL (ZESTRIL) 40 MG TAB 40 MILLIGRAM ORAL DAILY. ESOMEPRAZOLE MAG DR (NexIUM) 40 MG CAP.DR 40 MILLIGRAM ORAL DAILY. Start taking the following new medications: ATORVASTATIN (LIPITOR) 40 MG TAB 40 MILLIGRAM ORAL DAILY. Qty = 30 No Refills FENOFIBRATE (TRIGLIDE) 160 MG TAB 160 MILLIGRAM ORAL DAILY. Qty = 30 No Refills OMEGA-3 ACID ETHYL ESTERS (LOVAZA) 1 GRAM CAP 2,000 MILLIGRAM ORAL DAILY. Qty = 60 No Refills metFORMIN (GLUCOPHAGE) 500 MG TAB 500 MILLIGRAM ORAL WITH BREAKFAST AND DINNER. Qty = 60 Refills = 1 Objective VS/I O Last Documented: Result Date Time Pulse Ox 96 04/11 1054 B/P 144/82 04/11 1054 B/P Mean 102.8 04/11 1054 Temp 36.9 04/11 1054 Pulse 84 04/11 1054 Resp 20 04/11 1054 O2 Delivery Room air 04/10 1110 Patient Weight Weight (lb): Weight (oz): Weight (kg): 113.636 General appearance: alert, awake, oriented, no a cute distress Head/Eyes: atraumatic, EOMI, normocephalic ENT: moist mucosal membranes Cardiovascular: regular rate rhythm, normal hear t sounds Respiratory: clear to auscultation, no distress GI: soft, non-tender Extremities: moves all, no edema-all extremities Neuro/PRENATAL NURSE: alert, oriented X 3, normal speech Skin: dry Psychiatry: normal affect, normal judgment/insig ht, normal mood Results Findings/Data: Laboratory Tests: 04/11 04/11 04/11 04/10 04/10 1056 0508 0341 2202 1739 Chemistry Sodium (137 - 145 mmol/L) 131 L Potassium (3.4 - 5.0 mmol/L) 4.1 Chloride (98 - 107 mmol/L) 99 Carbon Dioxide (22 - 30 mmol/L) 21 L BUN (9 - 20 mg/dL) 11 Creatinine (0.7 - 1.3 mg/dL) 0.7 Glomerular Filtr Rate (>60) 124 Glucose (74 - 106 mg/dL) 289 H POC Glucose (74 - 106 MG/DL) 370 H 289 H 270 H 391 H Calcium (8.4 - 10.2 mg/dL) 9.0 Magnesium (1.6 - 2.3 mg/dL) 1.4 L Total Bilirubin (0.2 - 1.3 mg/dL) 0.7 Conjugated Bilirubin (0 - 0.3 mg/dL) 0 Unconjugated Bilirubin (0 - 1.1 mg/dL) 0.4 AST (15 - 46 U/L) 88 H ALT (13 - 69 U/L) 119 H Total Alk Phosphatase (38 - 126 U/L) 70 Total Protein (6.3 - 8.2 g/dL) 7.1 Albumin (3.5 - 5.0 g/dL) 4.1 Hematology WBC (5.0 - 12.0 x10 3/uL) 5.5 RBC (4.70 - 6.10 x10 6/uL) 4.15 L Hgb (14.0 - 18.0 g/dL) 12.9 L Hct (37.0 - 49.0 %) 37.2 MCV (80 - 94 fL) 90 MCH (27 - 31 pg) 31.1 H MCHC (33 - 37 g/dL) 34.7 RDW (11.5 - 15.5 %) 12.9 Plt Count (130 - 400 x10 3/uL) 192 MPV (9.4 - 16.4 fL) 10.4 Neut % (Auto) (43 - 65 %) 43.8 Lymph % (Auto) (20.5 - 45.5 %) 42.3 Plumas % (Auto) (5.5 - 11.7 %) 6.4 Eos % (Auto) (0.9 - 2.9 %) 6.0 H Baso % (Auto) (0.2 - 1.0 %) 1.1 H Neut # (Auto) (2.2 - 4.8 x10 3/uL) 2.41 Lymph # (Auto) (1.3 - 2.9 x10 3/uL) 2.32 [place]umas # (Auto) (0.3 - 0.8 x10 3/uL) 0.35 Eos # (Auto) (0.0 - 0.2 x10 3/uL) 0.33 H Baso # (Auto) (0.0 - 0.1 x10 3/uL) 0.06 Immature Gran % (0.0 - 2.0 %) 0.4 Nucleated RBC % (0 - 1.0 %) 0.0 Results: labs reviewed, vital signs stable Discharge Instructions Diet: cardiac Activity: as tolerated Prescriptions: e-prescribe Electronically Signed by Martha Trammell on at 0705 at 1206 RPT #:[id number] END OF REPORT 2019-04-10 08:31:00-00:00 [facility] ([facility]) History Physical - Adult REPORT#:[id number] REPORT STATUS: Signed DATE:04/10/19 TIME: 830 PATIENT: GABRIEL WALKER UNIT #: [id number] ROOM/BED: [place]im[place] : 62 AGE: 58 SEX: M ATTEND: Yari on,Robert ADM AUTHOR: Martha Trammell * ALL edits or amendments must be made on the [employer]/computer document * History of Present Illness HPI Chief complaint: New Onset Diabetes PCP: PCP: No Primary or Family Physician HPI: This is a 58 y/o male with a PMHX of HTN and pre-diabetes, presents to ER with c /o right eye pain, swelling and crusting x 1 week. Pt denies any trauma to his eye, but reports being around 4 dogs that shed. Associated with headache for several days. Patient reports he was recently se en by a PCP at a hospital in the [facility] and had an ear infection and plans to see an ENT doctor on Tuesday. Patient also reports his blood pressure being elevated, but states he forgot to take his medication, lisinopril, over the weekend. He also reports his blood sugars elevated, and states he thinks he has taken metformin in the past and not sure if he tole rated it well or not. He states he had pre-diabetes and he was controlling it by diet. Patient admit s to smoking 1 pack a day and also admits to drinking occasionally, and admits to drinking this weekend. Informant/historian: patient History Additional medical history: HTN Additional surgical history: Back surgery, neck surgery Additional family history: none Alcohol use: Denies EtOH use Drug use: Denies recreational drugs Smoking status for patients 13 years old or olde r: Current every day smoker Other social history: Local resident Medication/Allergy-Vaccine Hx Home Medications: FLUTICASONE PROPIONATE (FLONASE 50 MCG/ACT NASAL ) 1 SPRAY NASAL DAILY LISINOPRIL (ZESTRIL) 40 MG PO DAILY LORATADINE (CLARITIN) 10 MG PO DAILY Allergies: Coded Allergies: codeine (Intermediate, NAUSEA 02/08/19) Review of Systems Constitutional: Denies: chills, fever. Eyes: Reports: redness, itching, eye pain, swelling. Respiratory: Denies: BURGOS (dyspnea on exertion), productive co ugh (sputum), SOB. Cardiovascular: Denies: chest pain, BURGOS (dyspnea on exertion). GI: Denies: abdominal pain, nausea, vomiting. Neuro: Reports: headache. Denies: confusion, dizziness, numbness. All systems rev neg: except as marked Physical Exam VS/I O Vital Signs: Date Time Temp Pulse Resp B/P B/P Pulse O2 O2 F low FiO2 Mean Ox Delivery Rate 04/10 0400 76 16 134/74 93.9 96 04/10 0021 85 17 174/85 114 96 Room air 04/09 2345 90 14 181/92 121 96 Room air 04/09 2226 36.8 90 16 200/111 140.8 96 24 hour I O ending at 0700: 04/10 0700 04/09 1900 Intake Total Output Total Balance Patient 113.636 kg Weight Weight Stated/Reported Measurement Method Patient Weight Weight (lb): Weight (oz): Weight (kg): 113.636 General appearance: alert, awake, oriented, no a cute distress Head/Eyes: abnl conjunctiva/ sclera, EOMI, normocephalic, erythema, swelling and mild crusting right eye ENT: moist mucosal membranes Cardiovascular: regular rate rhythm, normal hear t sounds Respiratory: no distress, aerating well Abdomen/GI: active bowel sounds, soft, non-tende r Extremities: moves all Neuro/PRENATAL NURSE: alert, oriented X 3, normal speech, C ALEXANDER-XII grossly intact Skin: dry Results Findings/Data: Laboratory Tests: 04/10 04/10 04/09 04/09 04/09 0637 0042 2254 2251 2251 Chemistry Sodium (137 - 145 mmol/L) 129 L Potassium (3.4 - 5.0 mmol/L) 4.4 Chloride (98 - 107 mmol/L) 97 L Carbon Dioxide (22 - 30 mmol/L) 20 L BUN (9 - 20 mg/dL) 16 Creatinine (0.7 - 1.3 mg/dL) 0.9 Glomerular Filtr Rate (>60) 92 Glucose (74 - 106 mg/dL) 563 *H POC Glucose (74 - 106 MG/DL) 350 H Hemoglobin A1c (0 - 5.9 %) 10.3 H Calcium (8.4 - 10.2 mg/dL) 8.9 Total Bilirubin (0.2 - 1.3 mg/dL) 0.8 Conjugated Bilirubin (0 - 0.3 mg/dL) 0 Unconjugated Bilirubin (0 - 1.1 0.4 mg/dL) AST (15 - 46 U/L) 94 H ALT (13 - 69 U/L) 117 H Total Alk Phosphatase (38 - 126 U/L) 81 Rapid Troponin I (0.00 - 0.079 ng/mL) 0.00 Total Protein (6.3 - 8.2 g/dL) 7.8 Albumin (3.5 - 5.0 g/dL) 4.4 Triglycerides (mg/dL) > 1500 Cholesterol (mg/dL) 243 LDL Cholesterol Measurd (32 - 99 < 30.00 L mg/dL) HDL Cholesterol (40 - 59 mg/dL) 20 L Coronary Risk Interp 12.15 Hematology WBC (5.0 - 12.0 x10 3/uL) 6.5 RBC (4.70 - 6.10 x10 6/uL) 4.25 L Hgb (14.0 - 18.0 g/dL) 14.0 Hct (37.0 - 49.0 %) 37.4 MCV (80 - 94 fL) 88 MCH (27 - 31 pg) 32.9 H MCHC (33 - 37 g/dL) 37.4 H RDW (11.5 - 15.5 %) 12.6 Plt Count (130 - 400 x10 3/uL) 212 MPV (9.4 - 16.4 fL) 10.0 Neut % (Auto) (43 - 65 %) 57.5 Lymph % (Auto) (20.5 - 45.5 %) 31.2 Plumas % (Auto) (5.5 - 11.7 %) 6.2 Eos % (Auto) (0.9 - 2.9 %) 4.0 H Baso % (Auto) (0.2 - 1.0 %) 0.9 Neut # (Auto) (2.2 - 4.8 x10 3/uL) 3.72 Lymph # (Auto) (1.3 - 2.9 x10 3/uL) 2.02 Plumas # (Auto) (0.3 - 0.8 x10 3/uL) 0.40 Eos # (Auto) (0.0 - 0.2 x10 3/uL) 0.26 H Baso # (Auto) (0.0 - 0.1 x10 3/uL) 0.06 Immature Gran % (0.0 - 2.0 %) 0.2 Nucleated RBC % (0 - 1.0 %) 0.0 Radiology data: Recent Impressions: RADIOLOGY - XR CHEST 1 V 04/090 Report Impression - Status: SIGNED Entered: 04/09/20192314 Impression: 1. Normal one view chest x-ray. Impression By: CarrieVRMarc Herrera MD CAT SCAN - CT HEAD/BRAIN W/O CONT 04/094 Report Impression - Status: SIGNED Entered: 04/09/20192341 Impression: 1. No acute intracranial hemorrhage or significa nt mass effect 2. Additional findings as above Impression By: [email or web address] - Elaine Hatch MD Results: labs reviewed, vital signs stable Diagnosis, Assessment Plan Free Text DxA P Notes Free Text DxA P Notes: This is a 58 y/o male: #) HTN Urgency -restart home med lisinopril -add Hydralazine PRN -now stable #) New onset type 2 diabetes -high dose s/s insulin -hgbA1c 10.3 -will start on metformin BID -monitor ac/hs #) Hypertriglyceridemia/HLD -statin and fenofibrate #) Hyponatremia -monitor #) Headache -CT head negative for acute -tylenol PRN #) Right eye conjunctivitis -started on oral drops in ER, continue -pt has ENT appointment on Tuesday #) Recent ear infection -pt reports was given oral abx -plans to see ENT on Tuesday #) AST/ALT elevated -will monitor #) Tobacco Abuse -start on Nicotine patch daily -smoking cessation education #) Hip pain -pt reports chronic condition -pain control PRN #) DVT prophylaxis -TEDs Electronically Signed by Martha Trammell on at 0925 RPT #:[id number] END OF REPORT 2019-04-10 08:31:00-00:00 [facility] ([facility]) History Physical - Adult REPORT#:[id number] REPORT STATUS: Signed DATE:04/10/19 TIME: 830 PATIENT: GABRIEL WALKER UNIT #: [id number] [facility] AGE: 58 SEX: M ATTEND: Yari on,Robert ADM AUTHOR: Martha Trammell * ALL edits or amendments must be made on the [employer]/computer document * History of Present Illness HPI Chief complaint: New Onset Diabetes PCP: PCP: No Primary or Family Physician HPI: This is a 58 y/o male with a PMHX of HTN and pre-diabetes, presents to ER with c /o right eye pain, swelling and crusting x 1 week. Pt denies any trauma to his eye, but reports being around 4 dogs that shed. Associated with headache for several days. Patient reports he was recently se en by a PCP at a hospital in the [facility] and had an ear infection and plans to see an ENT doctor on Tuesday. Patient also reports his blood pressure being elevated, but states he forgot to take his medication, lisinopril, over the weekend. He also reports his blood sugars elevated, and states he thinks he has taken metformin in the past and not sure if he tole rated it well or not. He states he had pre-diabetes and he was controlling it by diet. Patient admit s to smoking 1 pack a day and also admits to drinking occasionally, and admits to drinking this weekend. Informant/historian: patient History Additional medical history: HTN Additional surgical history: Back surgery, neck surgery Additional family history: none Alcohol use: Denies EtOH use Drug use: Denies recreational drugs Smoking status for patients 13 years old or olde r: Current every day smoker Other social history: Local resident Medication/Allergy-Vaccine Hx Home Medications: FLUTICASONE PROPIONATE (FLONASE 50 MCG/ACT NASAL ) 1 SPRAY NASAL DAILY LISINOPRIL (ZESTRIL) 40 MG PO DAILY LORATADINE (CLARITIN) 10 MG PO DAILY Allergies: Coded Allergies: codeine (Intermediate, NAUSEA 02/08/19) Review of Systems Constitutional: Denies: chills, fever. Eyes: Reports: redness, itching, eye pain, swelling. Respiratory: Denies: BURGOS (dyspnea on exertion), productive co ugh (sputum), SOB. Cardiovascular: Denies: chest pain, BURGOS (dyspnea on exertion). GI: Denies: abdominal pain, nausea, vomiting. Neuro: Reports: headache. Denies: confusion, dizziness, numbness. All systems rev neg: except as marked Physical Exam VS/I O Vital Signs: Date Time Temp Pulse Resp B/P B/P Pulse O2 O2 F low FiO2 Mean Ox Delivery Rate 04/10 0400 76 16 134/74 93.9 96 04/10 0021 85 17 174/85 114 96 Room air 04/09 2345 90 14 181/92 121 96 Room air 04/09 2226 36.8 90 16 200/111 140.8 96 24 hour I O ending at 0700: 04/10 0700 04/09 1900 Intake Total Output Total Balance Patient 113.636 kg Weight Weight Stated/Reported Measurement Method Patient Weight Weight (lb): Weight (oz): Weight (kg): 113.636 General appearance: alert, awake, oriented, no a cute distress Head/Eyes: abnl conjunctiva/ sclera, EOMI, normocephalic, erythema, swelling and mild crusting right eye ENT: moist mucosal membranes Cardiovascular: regular rate rhythm, normal hear t sounds Respiratory: no distress, aerating well Abdomen/GI: active bowel sounds, soft, non-tende r Extremities: moves all Neuro/PRENATAL NURSE: alert, oriented X 3, normal speech, C ALEXANDER-XII grossly intact Skin: dry Results Findings/Data: Laboratory Tests: 04/10 04/10 04/09 04/09 04/09 0637 0042 2254 2251 2251 Chemistry Sodium (137 - 145 mmol/L) 129 L Potassium (3.4 - 5.0 mmol/L) 4.4 Chloride (98 - 107 mmol/L) 97 L Carbon Dioxide (22 - 30 mmol/L) 20 L BUN (9 - 20 mg/dL) 16 Creatinine (0.7 - 1.3 mg/dL) 0.9 Glomerular Filtr Rate (>60) 92 Glucose (74 - 106 mg/dL) 563 *H POC Glucose (74 - 106 MG/DL) 350 H Hemoglobin A1c (0 - 5.9 %) 10.3 H Calcium (8.4 - 10.2 mg/dL) 8.9 Total Bilirubin (0.2 - 1.3 mg/dL) 0.8 Conjugated Bilirubin (0 - 0.3 mg/dL) 0 Unconjugated Bilirubin (0 - 1.1 0.4 mg/dL) AST (15 - 46 U/L) 94 H ALT (13 - 69 U/L) 117 H Total Alk Phosphatase (38 - 126 U/L) 81 Rapid Troponin I (0.00 - 0.079 ng/mL) 0.00 Total Protein (6.3 - 8.2 g/dL) 7.8 Albumin (3.5 - 5.0 g/dL) 4.4 Triglycerides (mg/dL) > 1500 Cholesterol (mg/dL) 243 LDL Cholesterol Measurd (32 - 99 < 30.00 L mg/dL) HDL Cholesterol (40 - 59 mg/dL) 20 L Coronary Risk Interp 12.15 Hematology WBC (5.0 - 12.0 x10 3/uL) 6.5 RBC (4.70 - 6.10 x10 6/uL) 4.25 L Hgb (14.0 - 18.0 g/dL) 14.0 Hct (37.0 - 49.0 %) 37.4 MCV (80 - 94 fL) 88 MCH (27 - 31 pg) 32.9 H MCHC (33 - 37 g/dL) 37.4 H RDW (11.5 - 15.5 %) 12.6 Plt Count (130 - 400 x10 3/uL) 212 MPV (9.4 - 16.4 fL) 10.0 Neut % (Auto) (43 - 65 %) 57.5 Lymph % (Auto) (20.5 - 45.5 %) 31.2 Plumas % (Auto) (5.5 - 11.7 %) 6.2 Eos % (Auto) (0.9 - 2.9 %) 4.0 H Baso % (Auto) (0.2 - 1.0 %) 0.9 Neut # (Auto) (2.2 - 4.8 x10 3/uL) 3.72 Lymph # (Auto) (1.3 - 2.9 x10 3/uL) 2.02 Plumas # (Auto) (0.3 - 0.8 x10 3/uL) 0.40 Eos # (Auto) (0.0 - 0.2 x10 3/uL) 0.26 H Baso # (Auto) (0.0 - 0.1 x10 3/uL) 0.06 Immature Gran % (0.0 - 2.0 %) 0.2 Nucleated RBC % (0 - 1.0 %) 0.0 Radiology data: Recent Impressions: RADIOLOGY - XR CHEST 1 V 04/09 2250 Report Impression - Status: SIGNED Entered: 04/09/2019 2315 Impression: 1. Normal one view chest x-ray. Impression By: [email or web address] Marc Layne MD CAT SCAN - CT HEAD/BRAIN W/O CONT 04/09 2324 Report Impression - Status: SIGNED Entered: 04/09/2019 2342 Impression: 1. No acute intracranial hemorrhage or significa nt mass effect 2. Additional findings as above Impression By: [email or web address] - Elaine Hatch MD Results: labs reviewed, vital signs stable Diagnosis, Assessment Plan Free Text DxA P Notes Free Text DxA P Notes: This is a 58 y/o male: #) HTN Urgency -restart home med lisinopril -add Hydralazine PRN -now stable #) New onset type 2 diabetes -high dose s/s insulin -hgbA1c 10.3 -will start on metformin BID -monitor ac/hs #) Hypertriglyceridemia/HLD -statin and fenofibrate #) Hyponatremia -monitor #) Headache -CT head negative for acute -tylenol PRN #) Right eye conjunctivitis -started on oral drops in ER, continue -pt has ENT appointment on Tuesday #) Recent ear infection -pt reports was given oral abx -plans to see ENT on Tuesday #) AST/ALT elevated -will monitor #) Tobacco Abuse -start on Nicotine patch daily -smoking cessation education #) Hip pain -pt reports chronic condition -pain control PRN #) DVT prophylaxis -TEDs Electronically Signed by Martha Trammell on at 0925 at 1205 RPT #:[id number] END OF REPORT 2019-04-09 22:33:00-00:00 [facility] ([facility]) EMERGENCY PROVIDER REPORT REPORT#:[id number] REPORT STATUS: Signed DATE:04/09/19 TIME: 2232 PATIENT: GABRIEL WALKER UNIT #: [id number] ROOM/BED: NATHANIEL AGE: 58 SEX: M PCP PHYS: No Primary or Family Ph ysician SERVICE AUTHOR: Irais River SWITCHING CLERK * ALL edits or amendments must be made on the [employer]/computer document * Irais River 04/09/192232: HPI-Eye Problem General Confirmed Patient Yes PCP no PCP Presentation Chief Complaint Eye R affected, Discharge, Pain Hx Obtained From Patient Sudden in Onset? No Onset Occurred Days ago (10) Symptom Duration Since onset Progression since Onset Unchanged Caused by No trauma by history Location Eye L Quality Painful Radiation Does not radiate Severity: Onset Mild Severity: Current Mild Exacerbated by Nothing Relieved by Nothing Free Text HPI Notes Free Text HPI Notes room 23 swollen shut eye crusty dogs at home 1 week ago last month ear infection amoxicillin hx HTN hasnt taken lisinopril in 3 days Risk-Eye Problem Risk Stratification )( Eye Injury - Adult Risk factors reviewed Review of Systems ROS Statements All systems rev neg except as marked. Focused Review of Systems Constitutional Denies: Chills, Fatigue, Fever, Weakness - gener alized. Eyes Reports: Discharge R, Eye pain R, Redness R. Ears/Nose/Throat Reports: Earache bilat. Denies: Nasal congestion , Sinus problem, Sore throat. GI Denies: Abdominal pain, Constipation, Diarrhea, Nausea, Vomiting. Skin Denies: Abrasion, Abscess, Burn, Laceration. Neurologic Reports: Headache. Denies: Dizziness, Seizure, S yncope. Additional Review of Systems Respiratory Denies: Cough, non-productiv e, Cough, productive, Shortness of breath, Wheezing. Cardiovascular Denies: Chest pain, Palpitations, Syncope. Male Denies: Dysuria, Flank pain, Hematuria. Musculoskeletal Denies: Back pain, Extremity pain, Extremity swe lling, Myalgia, Neck pain. Past Medical History - Adult Stated Complaint CANT SHUT HIS RIGHT EYE, SOMETH ING IN HIS EYE Allergies Coded Allergies: codeine (Intermediate, NAUSEA 02/08/19) Review of Nursing Notes Rapid assess notes rev Smoking status for patients 13 years old or olde r: Current every day smoker Physical Exam Vital Signs Vital Signs First Documented: Result Date Time Pulse Ox 96 04/09 2225 B/P 200/111 04/09 2225 B/P Mean 140.8 04/09 2225 Temp 98.2 04/09 2225 Pulse 90 04/09 2225 Resp 16 04/09 2225 O2 Delivery Room air 04/09 2344 Last Documented: Result Date Time Pulse Ox 96 04/10 0021 B/P 174/85 04/10 0021 B/P Mean 114 04/10 002 O2 Delivery Room air 04/10 002 Pulse 85 04/10 002 Resp 17 04/10 20 Temp 98.2 04/09 2225 Review of Vital Signs Reviewed Focused PE General/Const General/Const Awake, Alert, No acute distress, Well appearing, Cooperative, Not toxic appearing MS Head Head Atraumatic, Normocephalic Eyes Eyes PERRL, EOMI Eyelids Matted R. Periorbital Erythema R, Edema R. Ears/Nose/Throat Ears/Nose/Throat Airway patent, Nose exam NL, N o facial swelling Skin Skin Color NL, No rash, Warm, Dry, Intact Neurologic Neurologic Oriented X3, Speech NL, No motor def icits, No sensory deficits, Gait NL Additional PE MS Neck Neck Supple, No meningismus, Full range of trevor on, No swelling, Non-tender Resp/Chest Respiratory/Chest Breath sounds NL, Breath soun ds = bilat, No respiratory distress, No rales, No rhonchi, No wheezing, No retractions Cardiovascular Cardiovascular Heart rate NL, Regular rhythm, H eart sounds NL, No murmurs Abdomen/GI Abdomen/GI Soft, Non-tender, No guarding, No re bound, No distention MS Back Back Inspection NL, Full range of motion, Painl ess range of motion, Non- tender MS Upper Extrem Upper Extremity/MS Inspection NL, Full range of motion, No swelling, Non- tender MS Lower Extrem Lower Ext/Pelvis/MS Inspection NL, Full range o f motion, No swelling, Non- tender Psychiatric Psychiatric Affect NL, Mood NL, Cognitive funct ion NL, Judgment/insight NL, Thought content NL Interpretation Diagnostics Lab Results Interpretation Results Laboratory Tests 04/09/19 2251: [Embedded Image Not Available] Laboratory Tests: 04/09 225 Chemistry Sodium (137 - 145 mmol/L) 129 L Potassium (3.4 - 5.0 mmol/L) 4.4 Chloride (98 - 107 mmol/L) 97 L Carbon Dioxide (22 - 30 mmol/L) 20 L BUN (9 - 20 mg/dL) 16 Creatinine (0.7 - 1.3 mg/dL) 0.9 Glomerular Filtr Rate (>60) 92 Glucose (74 - 106 mg/dL) 563 *H Hemoglobin A1c (0 - 5.9 %) 10.3 H Calcium (8.4 - 10.2 mg/dL) 8.9 Total Bilirubin (0.2 - 1.3 mg/dL) 0.8 Conjugated Bilirubin (0 - 0.3 mg/dL) 0 Unconjugated Bilirubin (0 - 1.1 mg/dL) 0.4 AST (15 - 46 U/L) 94 H ALT (13 - 69 U/L) 117 H Total Alk Phosphatase (38 - 126 U/L) 81 Rapid Troponin I (0.00 - 0.079 ng/mL) 0.00 Total Protein (6.3 - 8.2 g/dL) 7.8 Albumin (3.5 - 5.0 g/dL) 4.4 Hematology WBC (5.0 - 12.0 x10 3/uL) 6.5 RBC (4.70 - 6.10 x10 6/uL) 4.25 L Hgb (14.0 - 18.0 g/dL) 14.0 Hct (37.0 - 49.0 %) 37.4 MCV (80 - 94 fL) 88 MCH (27 - 31 pg) 32.9 H MCHC (33 - 37 g/dL) 37.4 H RDW (11.5 - 15.5 %) 12.6 Plt Count (130 - 400 x10 3/uL) 212 MPV (9.4 - 16.4 fL) 10.0 Neut % (Auto) (43 - 65 %) 57.5 Lymph % (Auto) (20.5 - 45.5 %) 31.2 Plumas % (Auto) (5.5 - 11.7 %) 6.2 Eos % (Auto) (0.9 - 2.9 %) 4.0 H Baso % (Auto) (0.2 - 1.0 %) 0.9 Neut # (Auto) (2.2 - 4.8 x10 3/uL) 3.72 Lymph # (Auto) (1.3 - 2.9 x10 3/uL) 2.02 [place] # (Auto) (0.3 - 0.8 x10 3/uL) 0.40 Eos # (Auto) (0.0 - 0.2 x10 3/uL) 0.26 H Baso # (Auto) (0.0 - 0.1 x10 3/uL) 0.06 Immature Gran % (0.0 - 2.0 %) 0.2 Nucleated RBC % (0 - 1.0 %) 0.0 Recent Impressions: RADIOLOGY - XR CHEST 1 V 04/09 2249 Report Impression - Status: SIGNED Entered: 04/09/2019 2315 Impression: 1. Normal one view chest x-ray. Impression By: [email or web address] Marc Layne MD CAT SCAN - CT HEAD/BRAIN W/O CONT 04/09 2324 Report Impression - Status: SIGNED Entered: 04/09/2019 2342 Impression: 1. No acute intracranial hemorrhage or significa nt mass effect 2. Additional findings as above Impression By: [email or web address] - Elaine Hatch MD Point of Care Testing Pulse Oximetry Pulse Ox % 96 On: Room air Interpretation Interpreted by me, Pulse oximetr y normal Time 2226 Re-Evaluation MDM Re-Evaluation/Progress Re-Evaluation/Progress Text/Dict Note Will order cardiac work up due to BP of 200/111. Pt agreeable w/ plan. ED Course Medication(s) Ordered Medication(s) Ordered: Cardiovascular Drugs Sig/Tera Start time Last Medication Dose Route Stop Time Status Admin Hydralazine HCl 10 MG X1ED STA 04/09 2237 DC IV 04/09 Electrolytic, Caloric, And Raul Sig/Tera Start time Last Medication Dose Route Stop Time Status Admin Sodium Chloride 250 ML ASDIR PRN 04/10 0030 AC IV 04/10 0621 Sodium Chloride 1,000 ML X1ED STA 04/10 0006 DC 04/10 IV 04/10 0007 0018 Sodium Chloride 1,000 ML X1ED STA 04/098 DC 04/09 IV 04/09 2239 2254 Eye, Ear, Nose And Throat (Een Sig/Etra Start time Last Medication Dose Route Stop Time Status Admin Ciprofloxacin HCl 1 DROP X1ED STA 04/10 0008 DC 04/10 RIGHT EYE 04/10 0009 0350 Gastrointestinal Drugs Sig/Tera Start time Last Medication Dose Route Stop Time Status Admin Ondansetron HCl 4 MG Q4H PRN PRN 04/10 0022 AC IV 04/10 0621 Hormones And Synthetic Substit Sig/Tera Start time Last Medication Dose Route Stop Time Status Admin Insulin Human Regular 5 UNIT X1ED STA 04/10 000 6 DC 04/10 SUBQ 04/10 0007 0018 Other Sig/Tera Start time Last Medication Dose Route Stop Time Status Admin Sodium Chloride 5 ML Q12HR 04/10 0900 AC IV 05/09 0901 Sodium Chloride 5 ML ASDIR PRN 04/10 0030 AC IV 04/10 0621 Sodium Chloride 10 ML ASDIR PRN 04/10 0030 AC IV 04/10 0621 Patient Discharge Departure Vital Signs/Condition Vital Signs First Documented: Result Date Time Pulse Ox 96 04/09 2226 B/P 200/111 04/09 2226 B/P Mean 140.8 04/09 2225 Temp 98.2 04/09 222 Pulse 90 04/09 2226 Resp 16 04/09 2226 O2 Delivery Room air 04/09 2345 Last Documented: Result Date Time Pulse Ox 96 04/10 0021 B/P 174/85 04/10 0021 B/P Mean 114 04/10 0021 O2 Delivery Room air 04/10 0021 Pulse 85 04/10 0021 Resp 17 04/10 0021 Temp 98.2 04/09 2226 All vital signs available at the time of this en try have been reviewed. Ajith Bolton 04/10/19 0000: HPI-Eye Problem General Initial Greet Date/Time 04/09/192221 Free Text HPI Notes Free Text HPI Notes 58 y/o male pt presents to the ED for right eye pain onset 1 week ago. Pt reports his brother has 4 do gs who all shed a lot, so he thought it was dog hair in his eye. Pt reports his e ye getting crusty and swollen. Pt denies any trauma to the eye. Pt reports his BP has been elevated, but has not taken his lisinopril in 3 days. Pt reports his blood sugar has been elevated lately. Portions of this section were scribed by Sandy Odom on 04/10/19 at 0021 Past Medical History - Adult Review of Nursing Notes Rev avail, and agree Additional Medical History HTN Additional Surgical History Back surgery, neck surgery Additional Family History none Alcohol Use Denies EtOH use Drug Use Denies recreational drugs Smoking status for patients 13 years old or olde r: Current every day smoker Other Social History Local resident Portions of this section were scribed by Sandy Odom on 04/10/19 at 0000 Physical Exam Vital Signs Review of Vital Signs Reviewed Portions of this section were scribed by Sandy Odom on 04/10/19 at 0021 Interpretation Diagnostics Lab Results Interpretation Lab Imaging Statement Laboratory radiographic studies reviewed and con sidered in the medical decision-making. Portions of this section were scribed by Sandy Odom on 04/10/19 at 0021 Portions of this section were scribed by Sandy Odom on 04/10/19 at 0021 Patient Discharge Departure Vital Signs/Condition Condition Guarded Clinical Impression Clinical Impression Primary Impression: NEW ONSET DIABETES Secondary Impressions: Conjunctivitis, Hyperglyc emia Disposition Decision Admit Admit Physician Name Robert Perera Admit Physician Hospitalist Request Time 0002 Request Date 04/10/19 )( Admission Accepts Yes )( Accepted Time 0002 )( Accepted Date 04/10/19 Call Information will see patient, dr.ilyas malloy turnist Discharge/Care Plan Counseled Regarding Diagnosi s, Lab results, Imaging studies, Need for admission Admit Note I have spoken with the patie nt and/or caregivers. I have explained the patient's condition, diagnoses and sergei atment plan based on the information available to me at this time. I have answered the patient's and/ or caregiver's questions and addressed any concerns. The patient and/or careg blank have as good an understanding of the patient 's diagnosis, condition and treatment plan as can be expected at this point. The patient has been stabilized within the capability of the emergency department. The patient wi ll be transported for further care and management or will be moved to an observation or inpatient service. I have communicated with the staff or medical p ractitioner taking over this patient's care. Supervising Physician Note Scribe Statement Josue Odom, 04/10/19 0000 , scribing for and in the presence of [Che]. Signed By: Josue Odom, 04/10/19 0000 Provider Scribed Statement I personally performed the s ervices described in this documentation and reviewed the documentation that was dictated to the scrib e(s) in my presence, and it accurately records my words and actions. Ajith Tinoco, 04/10/19 Portions of this section were scribed by Sandy Odom on 04/10/19 at 0021 at 0442 RPT #:[id number] END OF REPORT 2019-04-09 22:33:00-00:00 [facility] ([facility]) EMERGENCY PROVIDER REPORT REPORT#:[id number] REPORT STATUS: Signed DATE:04/09/19 TIME: 2232 PATIENT: GABRIEL WALKER UNIT #: [id number] ROOM/BED: [place] [id number] AGE: 58 SEX: M PCP PHYS: No Primary or Family P hysician SERVICE AUTHOR: Irais River NP * ALL edits or amendments must be made on the [employer]/computer document * Irais River 04/09/192232: HPI-Eye Problem General Confirmed Patient Yes Initial Greet Date/Time 04/09/192221 PCP no PCP Presentation Chief Complaint Eye R affected, Discharge, Pain Hx Obtained From Patient Sudden in Onset? No Onset Occurred Days ago (10) Symptom Duration Since onset Progression since Onset Unchanged Caused by No trauma by history Location Eye L Quality Painful Radiation Does not radiate Severity: Onset Mild Severity: Current Mild Exacerbated by Nothing Relieved by Nothing Free Text HPI Notes Free Text HPI Notes room 23 swollen shut eye crusty dogs at home 1 week ago last month ear infection amoxicillin hx HTN hasnt taken lisinopril in 3 days Risk-Eye Problem Risk Stratification )( Eye Injury - Adult Risk factors reviewed Review of Systems ROS Statements All systems rev neg except as marked. Focused Review of Systems Constitutional Denies: Chills, Fatigue, Fever, Weakness - gener alized. Eyes Reports: Discharge R, Eye pain R, Redness R. Ears/Nose/Throat Reports: Earache bilat. Denies: Nasal congestion , Sinus problem, Sore throat. GI Denies: Abdominal pain, Constipation, Diarrhea, Nausea, Vomiting. Skin Denies: Abrasion, Abscess, Burn, Laceration. Neurologic Reports: Headache. Denies: Dizziness, Seizure, S yncope. Additional Review of Systems Respiratory Denies: Cough, non-productiv e, Cough, productive, Shortness of breath, Wheezing. Cardiovascular Denies: Chest pain, Palpitations, Syncope. Male Denies: Dysuria, Flank pain, Hematuria. Musculoskeletal Denies: Back pain, Extremity pain, Extremity swe lling, Myalgia, Neck pain. Past Medical History - Adult Stated Complaint CANT SHUT HIS RIGHT EYE, SOMETH ING IN HIS EYE Allergies Coded Allergies: codeine (Intermediate, NAUSEA 02/08/19) Review of Nursing Notes Rapid assess notes rev Smoking status for patients 13 years old or olde r: Current every day smoker Physical Exam Vital Signs Vital Signs First Documented: Result Date Time Pulse Ox 96 04/09 2225 B/P 200/111 04/09 222 B/P Mean 140.8 04/09 2225 Temp 98.2 04/09 2225 Pulse 90 04/09 2225 Resp 16 04/09 2225 O2 Delivery Room air 04/095 Last Documented: Result Date Time Pulse Ox 96 04/10 0021 B/P 174/85 04/10 0021 B/P Mean 114 04/10 0021 O2 Delivery Room air 04/10 0021 Pulse 85 04/10 0021 Resp 17 04/10 0021 Temp 98.2 04/09 2226 Review of Vital Signs Reviewed Focused PE General/Const General/Const Awake, Alert, No acute distress, Well appearing, Cooperative, Not toxic appearing MS Head Head Atraumatic, Normocephalic Eyes Eyes PERRL, EOMI Eyelids Matted R. Periorbital Erythema R, Edema R. Ears/Nose/Throat Ears/Nose/Throat Airway patent, Nose exam NL, N o facial swelling Skin Skin Color NL, No rash, Warm, Dry, Intact Neurologic Neurologic Oriented X3, Speech NL, No motor def icits, No sensory deficits, Gait NL Additional PE MS Neck Neck Supple, No meningismus, Full range of trevor on, No swelling, Non-tender Resp/Chest Respiratory/Chest Breath sounds NL, Breath soun ds = bilat, No respiratory distress, No rales, No rhonchi, No wheezing, No retractions Cardiovascular Cardiovascular Heart rate NL, Regular rhythm, H eart sounds NL, No murmurs Abdomen/GI Abdomen/GI Soft, Non-tender, No guarding, No re bound, No distention MS Back Back Inspection NL, Full range of motion, Painl ess range of motion, Non- tender MS Upper Extrem Upper Extremity/MS Inspection NL, Full range of motion, No swelling, Non- tender MS Lower Extrem Lower Ext/Pelvis/MS Inspection NL, Full range o f motion, No swelling, Non- tender Psychiatric Psychiatric Affect NL, Mood NL, Cognitive funct ion NL, Judgment/insight NL, Thought content NL Interpretation Diagnostics Point of Care Testing Pulse Oximetry Pulse Ox % 96 On: Room air Interpretation Interpreted by me, Pulse oximetr y normal Time 2226 Re-Evaluation MDM Re-Evaluation/Progress Re-Evaluation/Progress Text/Dict Note Will order cardiac work up due to BP of 200/111. Pt agreeable w/ plan. ED Course Medication(s) Ordered Medication(s) Ordered: Cardiovascular Drugs Sig/Tera Start time Last Medication Dose Route Stop Time Status Admin Hydralazine HCl 10 MG X1ED STA 04/09 2237 DC IV 04/09 2238 2257 Electrolytic, Caloric, And Raul Sig/Tera Start time Last Medication Dose Route Stop Time Status Admin Sodium Chloride 250 ML ASDIR PRN 04/10 0030 AC IV 04/10 0621 Sodium Chloride 1,000 ML X1ED STA 04/10 0006 DC 04/10 IV 04/10 0007 0018 Sodium Chloride 1,000 ML X1ED STA 04/098 DC 04/09 IV 04/09 2238 2254 Eye, Ear, Nose And Throat (Een Sig/Tera Start time Last Medication Dose Route Stop Time Status Admin Ciprofloxacin HCl 1 DROP X1ED STA 04/10 0008 DC 04/10 RIGHT EYE 04/10 0009 0350 Gastrointestinal Drugs Sig/Tera Start time Last Medication Dose Route Stop Time Status Admin Ondansetron HCl 4 MG Q4H PRN PRN 04/10 0022 AC IV 04/10 0621 Hormones And Synthetic Substit Sig/Tera Start time Last Medication Dose Route Stop Time Status Admin Insulin Human Regular 5 UNIT X1ED STA 04/10 000 6 DC 04/10 SUBQ 04/10 0007 0018 Other Sig/Tera Start time Last Medication Dose Route Stop Time Status Admin Sodium Chloride 5 ML Q12HR 04/10 0900 AC IV 05/09 0901 Sodium Chloride 5 ML ASDIR PRN 04/10 0030 AC IV 04/10 0621 Sodium Chloride 10 ML ASDIR PRN 04/10 0030 AC IV 04/10 0621 Patient Discharge Departure Vital Signs/Condition Vital Signs First Documented: Result Date Time Pulse Ox 96 04/09 222 B/P 200/111 04/09 222 B/P Mean 140.8 04/09 222 Temp 98.2 04/09 222 Pulse 90 04/09 222 Resp 16 04/09 222 O2 Delivery Room air 04/09 2345 Last Documented: Result Date Time Pulse Ox 96 04/10 0021 B/P 174/85 04/10 0021 B/P Mean 114 04/10 0021 O2 Delivery Room air 04/10 0021 Pulse 85 04/10 0021 Resp 17 04/10 0021 Temp 98.2 04/09 2226 All vital signs available at the time of this en try have been reviewed. StevejudyAjith 04/10/19 0000: HPI-Eye Problem Free Text HPI Notes Free Text HPI Notes 58 y/o male pt presents to the ED for right eye pain onset 1 week ago. Pt reports his brother has 4 do gs who all shed a lot, so he thought it was dog hair in his eye. Pt reports his e ye getting crusty and swollen. Pt denies any trauma to the eye. Pt reports his BP has been elevated, but has not taken his lisinopril in 3 days. Pt reports his blood sugar has been elevated lately. Portions of this section were scribed by Sandy Odom on 04/10/19 at 0021 Past Medical History - Adult Review of Nursing Notes Rev avail, and agree Additional Medical History HTN Additional Surgical History Back surgery, neck surgery Additional Family History none Alcohol Use Denies EtOH use Drug Use Denies recreational drugs Smoking status for patients 13 years old or olde r: Current every day smoker Other Social History Local resident Portions of this section were scribed by Sandy Odom on 04/10/19 at 0000 Physical Exam Vital Signs Review of Vital Signs Reviewed Portions of this section were scribed by Sandy Odom on 04/10/19 at 0021 Interpretation Diagnostics Lab Results Interpretation Results Laboratory Tests 04/09/192250: [Embedded Image Not Available] Laboratory Tests: 04/09 Chemistry Sodium (137 - 145 mmol/L) 129 L Potassium (3.4 - 5.0 mmol/L) 4.4 Chloride (98 - 107 mmol/L) 97 L Carbon Dioxide (22 - 30 mmol/L) 20 L BUN (9 - 20 mg/dL) 16 Creatinine (0.7 - 1.3 mg/dL) 0.9 Glomerular Filtr Rate (>60) 92 Glucose (74 - 106 mg/dL) 563 *H Hemoglobin A1c (0 - 5.9 %) 10.3 H Calcium (8.4 - 10.2 mg/dL) 8.9 Total Bilirubin (0.2 - 1.3 mg/dL) 0.8 Conjugated Bilirubin (0 - 0.3 mg/dL) 0 Unconjugated Bilirubin (0 - 1.1 mg/dL) 0.4 AST (15 - 46 U/L) 94 H ALT (13 - 69 U/L) 117 H Total Alk Phosphatase (38 - 126 U/L) 81 Rapid Troponin I (0.00 - 0.079 ng/mL) 0.00 Total Protein (6.3 - 8.2 g/dL) 7.8 Albumin (3.5 - 5.0 g/dL) 4.4 Hematology WBC (5.0 - 12.0 x10 3/uL) 6.5 RBC (4.70 - 6.10 x10 6/uL) 4.25 L Hgb (14.0 - 18.0 g/dL) 14.0 Hct (37.0 - 49.0 %) 37.4 MCV (80 - 94 fL) 88 MCH (27 - 31 pg) 32.9 H MCHC (33 - 37 g/dL) 37.4 H RDW (11.5 - 15.5 %) 12.6 Plt Count (130 - 400 x10 3/uL) 212 MPV (9.4 - 16.4 fL) 10.0 Neut % (Auto) (43 - 65 %) 57.5 Lymph % (Auto) (20.5 - 45.5 %) 31.2 Plumas % (Auto) (5.5 - 11.7 %) 6.2 Eos % (Auto) (0.9 - 2.9 %) 4.0 H Baso % (Auto) (0.2 - 1.0 %) 0.9 Neut # (Auto) (2.2 - 4.8 x10 3/uL) 3.72 Lymph # (Auto) (1.3 - 2.9 x10 3/uL) 2.02 [place] # (Auto) (0.3 - 0.8 x10 3/uL) 0.40 Eos # (Auto) (0.0 - 0.2 x10 3/uL) 0.26 H Baso # (Auto) (0.0 - 0.1 x10 3/uL) 0.06 Immature Gran % (0.0 - 2.0 %) 0.2 Nucleated RBC % (0 - 1.0 %) 0.0 Recent Impressions: RADIOLOGY - XR CHEST 1 V 04/09 2250 Report Impression - Status: SIGNED Entered: 04/09/2019 2315 Impression: 1. Normal one view chest x-ray. Impression By: [email or web address] Marc Layne MD CAT SCAN - CT HEAD/BRAIN W/O CONT 04/09 2324 Report Impression - Status: SIGNED Entered: 04/09/2019 2342 Impression: 1. No acute intracranial hemorrhage or significa nt mass effect 2. Additional findings as above Impression By: [email or web address] - Elaine Hatch MD Lab Imaging Statement Laboratory radiographic studies reviewed and con sidered in the medical decision-making. Portions of this section were scribed by Sandy Odom on 04/10/19 at 0021 Portions of this section were scribed by Sandy Odom on 04/10/19 at 0021 Patient Discharge Departure Vital Signs/Condition Condition Guarded Clinical Impression Clinical Impression Primary Impression: NEW ONSET DIABETES Secondary Impressions: Conjunctivitis, Hyperglyc emia Disposition Decision Admit Admit Physician Name Jack Pererakhris Admit Physician Hospitalist Request Time 0002 Request Date 04/10/19 )( Admission Accepts Yes )( Accepted Time 0002 )( Accepted Date 04/10/19 Call Information will see patient, dr.ilyas malloy turnist Discharge/Care Plan Counseled Regarding Diagnosi s, Lab results, Imaging studies, Need for admission Admit Note I have spoken with the patie nt and/or caregivers. I have explained the patient's condition, diagnoses and sergei atment plan based on the information available to me at this time. I have answered the patient's and/ or caregiver's questions and addressed any concerns. The patient and/or careg blank have as good an understanding of the patient 's diagnosis, condition and treatment plan as can be expected at this point. The patient has been stabilized within the capability of the emergency department. The patient wi ll be transported for further care and management or will be moved to an observation or inpatient service. I have communicated with the staff or medical p ractitioner taking over this patient's care. Supervising Physician Note Scribe Statement Josue Odom, 04/10/19 0000 , scribing for and in the presence of [Che]. Signed By: Josue Odom, 04/10/19 0000 Provider Scribed Statement I personally performed the s ervices described in this documentation and reviewed the documentation that was dictated to the scrib e(s) in my presence, and it accurately records my words and actions. Ajith Tinoco, 04/10/19 Portions of this section were scribed by Sandy Odom on 04/10/19 at 0021 at 0442 at 0530 [facility] #:[id number] END OF REPORT 2019-02-08 10:51:00-00:00 [facility] ([facility]) EMERGENCY PROVIDER REPORT REPORT#:[id number] REPORT STATUS: Signed DATE:02/08/19 TIME: 1051 PATIENT: GABRIEL WALKER UNIT #: [id number] ROOM/BED: AGE: 58 SEX: M PCP PHYS: No Primary or Family Ph ysician SERVICE AUTHOR: Aleta,Irais Ajnnie ette SWITCHING CLERK * ALL edits or amendments must be made on the [employer]/computer document * HPI-Ear Pain/Problem/FB General Confirmed Patient Yes Patient Type New patient Initial Greet Date/Time 02/08/19 1041 PCP none Presentation Chief Complaint Ear problem R Hx Obtained From Patient Onset Occurred Sudden, Days ago Symptom Duration Since onset, Constant Progression since Onset Constant Location Inner ear Quality Same as prior, Aching Severity: Onset Moderate Severity: Current Moderate Associated with Denies: Shortness of breath, Chills, Cough, Dizziness, Fever, Headache, Hearing loss, Itching, Nausea, Neck pain, Neck swelling, Recent tooth extraction, Rhinorrhea, Sore throat, Swimming, Trauma, URI s ymptoms, Urticaria, Vertigo, Vomiting. Exacerbated by Nothing Relieved by Nothing Free Text HPI Notes Free Text HPI Notes REPORTS RIGHT EAR PAIN FOR TWO WEEKS Review of Systems ROS Statements All systems rev neg except as marked. Basic Review of Systems Basic ROS EYES: No redness, RESP: No SOB, CV: No chest pain, GI: No abd pain/ vomiting, : No dysuria/connor quency, MS: No ext swelling/pain, HEM: No bleeding/ bruising, SKIN: No rash, LUIS M RO: No change MS, NEURO: No focal deficit, PSYCH: NL thought content Focused Review of Systems Constitutional Denies: Chills, Fever, Lethargy, Weakness - gene ralized. Ears/Nose/Throat Reports: Earache R. Denies: Ear drainage bilat, Ear ringing bilat, Hearing loss bilat, Mouth pain, Nasal congestion, Nose bleedi ng, Sinus problem. Additional Review of Systems Eyes Denies: Blurred bilat, Diplopia, Discharge bilat , Photophobia. Respiratory Denies: Cough, non-productiv e, Cough, productive, Dyspnea on exertion, Shortness of breath. Cardiovascular Denies: Chest pain, Dyspnea on exertion, Syncope . GI Denies: Abdominal pain, Constipation, Diarrhea, Nausea, Vomiting. Male Denies: Dysuria, Flank pain, Hematuria. Musculoskeletal Denies: Back pain, Neck pain, Thoracic pain. Skin Denies: Abrasion, Abscess, Burn, Contusion, Diap horesis, Erythema, Itching, Jaundice, Laceration, Rash, Swelling, Ulceration . Allergy/Immun Denies: Allergic reaction, Hives, Itching. Psychiatric Denies: Agitation, Anxiety, Stress. Past Medical History - Adult Stated Complaint FLUID IN RT EAR Allergies Coded Allergies: codeine (Intermediate, NAUSEA 02/08/19) Review of Nursing Notes Rev avail, and agree Smoking status for patients 13 years old or olde r: Current every day smoker Ambulatory Status Independent Physical Exam Vital Signs Vital Signs First Documented: Result Date Time Pulse Ox 98 02/08 1047 B/P 138/84 02/08 1047 B/P Mean 102 02/08 1047 O2 Delivery Room air 02/08 1047 Temp 36.5 02/08 1047 Pulse 86 02/08 1047 Resp 16 02/08 1047 Last Documented: Result Date Time Pulse Ox 98 02/08 1047 B/P 138/84 02/08 1047 B/P Mean 102 02/08 1047 O2 Delivery Room air 02/08 1047 Temp 36.5 02/08 1047 Pulse 86 02/08 1047 Resp 16 02/08 1047 Review of Vital Signs Reviewed Basic Physical Exam Basic PE HEAD: Atraumatic/NC, EYES: PERRL, conj clear, NECK: Supple, RESP: No resp distress, CV: Reg rate rhythm, ABD: Soft/no n-tender, EXT: No gross abnormality, SKIN: No rashes, warm/dry, NEURO: a lert oriented, NEURO: gross movement NL, PSYCH: NL thought content Focused PE General/Const General/Const Awake, Alert, No acute di stress, Well appearing, Well developed , Well hydrated, Well nourished, Cooperative, No t toxic appearing MS Head Head Atraumatic, Normocephalic Ears/Nose/Throat Ears/Nose/Throat Atraumatic, Airway patent, Muc ous membranes moist, Pharynx NL, Ext aud canal NL, Mastoid area NL Right Ear/Mastoid Tympanic membrane red, Tympanic membrane bulgin g. Negative: Tympanic memb perforated, Tympanic memb re tracted, Bullous myringitis, Fluid behind TM clear, Fluid behind TM purulent, External canal red, External plug overwrap machine tender, Ext canal foreign body, Discharge purulent, Discharge bloo dy, Ext canal cerumen impact, Mastoid area red, Mastoid area tender, [place] red , [place] tender. Left Ear/Mastoid Negative: Tympanic membrane red, Tympanic membr ane bulging, Tympanic memb perforated, Tympanic memb re tracted, Bullous myringitis, Fluid behind TM clear, Fluid behind TM purulent, External canal red, External plug overwrap machine tender, Ext canal foreign body, Discharge purulent, Discharge bloo dy, Ext canal cerumen impact, Mastoid area red, Mastoid area tender, [place] red , [place] tender. MS Neck Neck Supple, Full range of motion, No swelling, Non-tender, No midline vertebral tend, No masses Resp/Chest Respiratory/Chest Breath sounds NL, Breath soun ds = bilat, No respiratory distress, No rales, No rhonchi, No wheezing, No retractions Cardiovascular Cardiovascular Heart rate NL, Regular r hythm, Heart sounds NL, Cap refill not delayed Skin Skin Color NL, Warm, Dry, Turgor NL Neurologic Neurologic Oriented X3, Speech NL, No motor def icits, No sensory deficits Additional PE Eyes Eyes Atraumatic, PERRL, EOMI, No nystagmus, No periorbital redness Abdomen/GI Abdomen/GI Atraumatic, Soft, Non-tender, BS nor moactive MS Back Back Atraumatic, Inspection NL, Full range of m otion, Painless range of motion, Non-tender MS Upper Extrem Upper Extremity/MS Atraumatic, Inspection NL, F ull range of motion, No swelling MS Lower Extrem Lower Ext/Pelvis/MS Atraumatic, Inspection NL, Full range of motion, No swelling Psychiatric Psychiatric Affect NL, Mood NL, Cognitive funct ion NL, Judgment/insight NL, Thought content NL Interpretation Diagnostics Point of Care Testing Pulse Oximetry Pulse Ox % 98 On: Room air Interpretation Interpreted by me, Pulse oximetr y normal Time 1053 Patient Discharge Departure Vital Signs/Condition Vital Signs First Documented: Result Date Time Pulse Ox 98 02/08 1047 B/P 138/84 02/08 1047 B/P Mean 102 02/08 1047 O2 Delivery Room air 02/08 104 Temp 36.5 02/08 1047 Pulse 86 02/08 1047 Resp 16 02/08 1047 Last Documented: Result Date Time Pulse Ox 98 02/08 1047 B/P 138/84 02/08 1047 B/P Mean 102 02/08 1047 O2 Delivery Room air 02/08 104 Temp 36.5 02/08 1047 Pulse 86 02/08 1047 Resp 16 02/08 1047 All vital signs available at the time of this en try have been reviewed. Condition Stable Clinical Impression Clinical Impression Primary Impression: Otitis media Disposition Decision Discharge )( Discharged to Home Yes )( Time 1054 )( Date 02/08/19 Discharge/Care Plan Counseled Regarding Diagnosi s, Prescriptions, Need for follow-up, When to return to ED Prescriptions AMOX Prescriptions Reviewed Risks, Benefits, Alternat janusz treatment Discharge Note I have spoken with the patie nt and/or caregivers. I have explained the patient's condition, diagnoses and sergei atment plan based on the information available to me at this time. I have answered the patient's and/ or caregiver's questions and addressed any concerns. The patient and/or careg blank have as good an understanding of the patient 's diagnosis, condition and treatment plan as can be expected at this point. The vital signs have bee n stable. The patient's condition is stable and appr opriate for discharge from the emergency department. The patient will pursue further outpatient evalu ation with the primary care physician or other designated or consulting phys ician as outlined in the discharge instructions. The patient and/or caregivers are agreeable to this plan of care and follow-up instructions have been exp lained in detail. The patient and/or caregivers have received these instructio ns in written format and have expressed an understanding of the discharge inst ructions. The patient and/or caregivers are aware that any significant change in condition or worsening of symptoms should prompt an immediate return to [facility] or the closest emergency department or a call to 911. at 1940 RPT #:[id number] END OF REPORT 2019-02-08 10:51:00-00:00 [facility] ([facility]) EMERGENCY PROVIDER REPORT REPORT#:[id number] REPORT STATUS: Signed DATE:02/08/19 TIME: 1051 PATIENT: GABRIEL WALKER UNIT #: [id number] ROOM/BED: AGE: 58 SEX: M PCP PHYS: No Primary or Family P hysician SERVICE AUTHOR: Irais River NP * ALL edits or amendments must be made on the el [employer]/computer document * Irais River 02/08/19 1051: HPI-Ear Pain/Problem/FB General Confirmed Patient Yes Patient Type New patient PCP none Presentation Chief Complaint Ear problem R Hx Obtained From Patient Onset Occurred Sudden, Days ago Symptom Duration Since onset, Constant Progression since Onset Constant Location Inner ear Quality Same as prior, Aching Severity: Onset Moderate Severity: Current Moderate Associated with Denies: Shortness of breath, Chills, Cough, Dizziness, Fever, Headache, Hearing loss, Itching, Nausea, Neck pain, Neck swelling, Recent tooth extraction, Rhinorrhea, Sore throat, Swimming, Trauma, URI s ymptoms, Urticaria, Vertigo, Vomiting. Exacerbated by Nothing Relieved by Nothing Free Text HPI Notes Free Text HPI Notes REPORTS RIGHT EAR PAIN FOR TWO WEEKS Review of Systems ROS Statements All systems rev neg except as marked. Basic Review of Systems Basic ROS EYES: No redness, RESP: No SOB, CV: No chest pain, GI: No abd pain/ vomiting, : No dysuria/connor quency, MS: No ext swelling/pain, HEM: No bleeding/ bruising, SKIN: No rash, LUIS M RO: No change MS, NEURO: No focal deficit, PSYCH: NL thought content Focused Review of Systems Constitutional Denies: Chills, Fever, Lethargy, Weakness - gene ralized. Ears/Nose/Throat Reports: Earache R. Denies: Ear drainage bilat, Ear ringing bilat, Hearing loss bilat, Mouth pain, Nasal congestion, Nose bleedi ng, Sinus problem. Additional Review of Systems Eyes Denies: Blurred bilat, Diplopia, Discharge bilat , Photophobia. Respiratory Denies: Cough, non-productiv e, Cough, productive, Dyspnea on exertion, Shortness of breath. Cardiovascular Denies: Chest pain, Dyspnea on exertion, Syncope . GI Denies: Abdominal pain, Constipation, Diarrhea, Nausea, Vomiting. Male Denies: Dysuria, Flank pain, Hematuria. Musculoskeletal Denies: Back pain, Neck pain, Thoracic pain. Skin Denies: Abrasion, Abscess, Burn, Contusion, Diap horesis, Erythema, Itching, Jaundice, Laceration, Rash, Swelling, Ulceration . Allergy/Immun Denies: Allergic reaction, Hives, Itching. Psychiatric Denies: Agitation, Anxiety, Stress. Past Medical History - Adult Stated Complaint FLUID IN RT EAR Allergies Coded Allergies: codeine (Intermediate, NAUSEA 02/08/19) Review of Nursing Notes Rev avail, and agree Smoking status for patients 13 years old or olde r: Current every day smoker Ambulatory Status Independent Physical Exam Vital Signs Vital Signs First Documented: Result Date Time Pulse Ox 98 02/08 1047 B/P 138/84 02/08 1047 B/P Mean 102 02/08 1047 O2 Delivery Room air 02/08 104 Temp 97.7 02/08 1047 Pulse 86 02/08 1047 Resp 16 02/08 1047 Last Documented: Result Date Time Pulse Ox 98 02/08 1047 B/P 138/84 02/08 1047 B/P Mean 102 02/08 1047 O2 Delivery Room air 02/08 1047 Temp 97.7 02/08 104 Pulse 86 02/08 1047 Resp 16 02/08 1047 Review of Vital Signs Reviewed Basic Physical Exam Basic PE HEAD: Atraumatic/NC, EYES: PERRL, conj clear, NECK: Supple, RESP: No resp distress, CV: Reg rate rhythm, ABD: Soft/no n-tender, EXT: No gross abnormality, SKIN: No rashes, warm/dry, NEURO: a lert oriented, NEURO: gross movement NL, PSYCH: NL thought content Focused PE General/Const General/Const Awake, Alert, No acute di stress, Well appearing, Well developed , Well hydrated, Well nourished, Cooperative, No t toxic appearing MS Head Head Atraumatic, Normocephalic Ears/Nose/Throat Ears/Nose/Throat Atraumatic, Airway patent, Muc ous membranes moist, Pharynx NL, Ext aud canal NL, Mastoid area NL Right Ear/Mastoid Tympanic membrane red, Tympanic membrane bulgin g. Negative: Tympanic memb perforated, Tympanic memb re tracted, Bullous myringitis, Fluid behind TM clear, Fluid behind TM purulent, External canal red, External plug overwrap machine tender, Ext canal foreign body, Discharge purulent, Discharge bloo dy, Ext canal cerumen impact, Mastoid area red, Mastoid area tender, [place] red , [place] tender. Left Ear/Mastoid Negative: Tympanic membrane red, Tympanic membr ane bulging, Tympanic memb perforated, Tympanic memb re tracted, Bullous myringitis, Fluid behind TM clear, Fluid behind TM purulent, External canal red, External plug overwrap machine tender, Ext canal foreign body, Discharge purulent, Discharge bloo dy, Ext canal cerumen impact, Mastoid area red, Mastoid area tender, [place] red , [place] tender. MS Neck Neck Supple, Full range of motion, No swelling, Non-tender, No midline vertebral tend, No masses Resp/Chest Respiratory/Chest Breath sounds NL, Breath soun ds = bilat, No respiratory distress, No rales, No rhonchi, No wheezing, No retractions Cardiovascular Cardiovascular Heart rate NL, Regular r hythm, Heart sounds NL, Cap refill not delayed Skin Skin Color NL, Warm, Dry, Turgor NL Neurologic Neurologic Oriented X3, Speech NL, No motor def icits, No sensory deficits Additional PE Eyes Eyes Atraumatic, PERRL, EOMI, No nystagmus, No periorbital redness Abdomen/GI Abdomen/GI Atraumatic, Soft, Non-tender, BS nor moactive MS Back Back Atraumatic, Inspection NL, Full range of m otion, Painless range of motion, Non-tender MS Upper Extrem Upper Extremity/MS Atraumatic, Inspection NL, F ull range of motion, No swelling MS Lower Extrem Lower Ext/Pelvis/MS Atraumatic, Inspection NL, Full range of motion, No swelling Psychiatric Psychiatric Affect NL, Mood NL, Cognitive funct ion NL, Judgment/insight NL, Thought content NL Interpretation Diagnostics Point of Care Testing Pulse Oximetry Pulse Ox % 98 On: Room air Interpretation Interpreted by me, Pulse oximetr y normal Time 1053 Patient Discharge Departure Vital Signs/Condition Vital Signs First Documented: Result Date Time Pulse Ox 98 02/08 1047 B/P 138/84 02/08 1047 B/P Mean 102 02/08 1047 O2 Delivery Room air 02/08 1047 Temp 97.7 02/08 1047 Pulse 86 02/08 1047 Resp 16 02/08 1047 Last Documented: Result Date Time Pulse Ox 98 02/08 1047 B/P 138/84 02/08 1047 B/P Mean 102 02/08 1047 O2 Delivery Room air 02/08 1047 Temp 97.7 02/08 1047 Pulse 86 02/08 1047 Resp 16 02/08 1047 All vital signs available at the time of this en try have been reviewed. Condition Stable Clinical Impression Clinical Impression Primary Impression: Otitis media Disposition Decision Discharge )( Discharged to Home Yes )( Time 1054 )( Date 02/08/19 Discharge/Care Plan Counseled Regarding Diagnosi s, Prescriptions, Need for follow-up, When to return to ED Prescriptions AMOX Prescriptions Reviewed Risks, Benefits, Alternat janusz treatment Discharge Note I have spoken with the patie nt and/or caregivers. I have explained the patient's condition, diagnoses and sergei atment plan based on the information available to me at this time. I have answered the patient's and/ or caregiver's questions and addressed any concerns. The patient and/or careg blank have as good an understanding of the patient 's diagnosis, condition and treatment plan as can be expected at this point. The vital signs have bee n stable. The patient's condition is stable and appr opriate for discharge from the emergency department. The patient will pursue further outpatient evalu ation with the primary care physician or other designated or consulting phys ician as outlined in the discharge instructions. The patient and/or caregivers are agreeable to this plan of care and follow-up instructions have been exp lained in detail. The patient and/or caregivers have received these instructio ns in written format and have expressed an understanding of the discharge inst ructions. The patient and/or caregivers are aware that any significant change in condition or worsening of symptoms should prompt an immediate return to [facility] or the closest emergency department or a call to 911. Ajith Bolton 02/11/19 0841: HPI-Ear Pain/Problem/FB General Initial Greet Date/Time 02/08/19 1041 Patient Discharge Departure Supervising Physician Note MidLv Saw Pt Alone I have reviewed the PA/SWITCHING CLERK's note and plan of car e. I was available for consultation as needed at al l times during the patient's visit in the emergency department. I agree with the clinical impression , plan and disposition. at 1940 at 0841 RPT #:[id number] END OF REPORT
--- NOTE | 2022-08-02 13:02 | EDPHYS ---
Physician Documentation [facility] Name: Gabriel Walker Age: 61 yrs Sex: Male : 1960 Arrival Date: 08/02/2022 Time: 11:52 Bed 9 Private MD: ED Physician Jann De La Garza HPI: 08/02 12:56 This 61 yrs old Male presents to ER via Ambulatory with complaints of dee Toothache. 12:56 The patient presents with broken tooth/teeth, pain, redness, swelling. The problem is dee located in the lower left lateral incisor, lower left central incisor, lower right central incisor and lower right lateral incisor. Onset: The symptoms/episode began/occurred 1 week(s) ago. Duration: The symptoms are continuous, and are steadily getting worse. Modifying factors: The symptoms are alleviated by prescription meds, Tylenol #3, the symptoms are aggravated by air, chewing, cold fluids, food. Modifying factors: The symptoms are alleviated by. Associated signs and symptoms: The patient has no apparent associated signs or symptoms. Severity of symptoms: At their worst the symptoms were moderate, in the emergency department the symptoms are unchanged. The patient has experienced similar episodes in the past, multiple times. Historical: - Allergies: 12:08 Codeine; "makes nauseous"; iw - Home Meds: 12:08 glipizide 10 mg Oral tab 1 tab once daily [Active]; lisinopril 40 mg Oral tab [Active]; iw Metformin Oral [Active]; - PMHx: 12:08 Diabetes - NIDDM; GERD; Hypertension; iw - PSHx: 12:08 Tonsillectomy; iw - Immunization history:: Adult Immunizations not immunized, . - Social history:: Smoking status: . - Family history:: not pertinent. ROS: 12:56 Constitutional: Negative for fever, chills, and weight loss, Eyes: Negative for injury, dee pain, redness, and discharge, Neck: Negative for injury, pain, and swelling, Cardiovascular: Negative for chest pain, palpitations, and edema, Respiratory: Negative for shortness of breath, cough, wheezing, and pleuritic chest pain, Abdomen/GI: Negative for abdominal pain, nausea, vomiting, diarrhea, and constipation, Back: Negative for injury and pain, : Negative for injury, bleeding, discharge, and swelling, MS/Extremity: Negative for injury and deformity, Skin: Negative for injury, rash, and discoloration, Neuro: Negative for headache, weakness, numbness, tingling, and seizure, Psych: Negative for depression, anxiety, suicide ideation, homicidal ideation, and hallucinations, Allergy/Immunology: Negative for hives, rash, and allergies, Endocrine: Negative for neck swelling, polydipsia, polyuria, polyphagia, and marked weight changes, Hematologic/Lymphatic: Negative for swollen nodes, abnormal bleeding, and unusual bruising. 12:56 ENT: Positive for dental pain, Gum pain of the lower left cuspid, lower left lateral incisor, lower left central incisor, lower right central incisor, lower right lateral incisor and lower right cuspid. Exam: 12:56 Constitutional: This is a well developed, well nourished patient who is awake, alert, dee and in no acute distress. Head/Face: Normocephalic, atraumatic. Eyes: Pupils equal round and reactive to light, extra-ocular motions intact. Lids and lashes normal. Conjunctiva and sclera are non-icteric and not injected. Cornea within normal limits. Periorbital areas with no swelling, redness, or edema. Neck: Trachea midline, no thyromegaly or masses palpated, and no cervical lymphadenopathy. Supple, full range of motion without nuchal rigidity, or vertebral point tenderness. No Meningismus. Chest/axilla: Normal chest wall appearance and motion. Nontender with no deformity. No lesions are appreciated. Cardiovascular: Regular rate and rhythm with a normal S1 and S2. No gallops, murmurs, or rubs. Normal PMI, no JVD. No pulse deficits. Respiratory: Lungs have equal breath sounds bilaterally, clear to auscultation and percussion. No rales, rhonchi or wheezes noted. No increased work of breathing, no retractions or nasal flaring. Abdomen/GI: Soft, non-tender, with normal bowel sounds. No distension or tympany. No guarding or rebound. No evidence of tenderness throughout. Back: No spinal tenderness. No costovertebral tenderness. Full range of motion. Skin: Warm, dry with normal turgor. Normal color with no rashes, no lesions, and no evidence of cellulitis. MS/ Extremity: Pulses equal, no cyanosis. Neurovascular intact. Full, normal range of motion. Neuro: Awake and alert, GCS 15, oriented to person, place, time, and situation. Cranial nerves II-XII grossly intact. Motor strength 5/5 in all extremities. Sensory grossly intact. Cerebellar exam normal. Normal gait. Psych: Awake, alert, with orientation to person, place and time. Behavior, mood, and affect are within normal limits. 12:56 ENT: Mouth: Lips: normal, moist, Oral mucosa: normal, pink and intact, moist, Gums: reddened, on the lower left cuspid, lower left lateral incisor, lower left central incisor, lower right central incisor and lower right lateral incisor, Dental exam: dental caries, fractured teeth are noted, diffusely, gum swelling, that is mild, malocclusion, is not appreciated, missing teeth, diffusely. Vital Signs: 12:06 BP 174 / 96; Pulse 91; Resp 16; Temp 98.8; Pulse Ox 97% ; Weight 113.4 kg; Height 6 ft. iw 0 in. ; Pain 10/10; 13:02 BP 165 / 78; Pulse 84; Resp 18; Pulse Ox 100% on R/A; mb9 12:06 Body Mass Index 33.91 (113.40 kg, 182.88 cm) iw 12:06 Pain Scale: Adult iw MDM: 12:09 Patient medically screened. dee 12:59 Differential diagnosis: dental caries, gingivitis. Data reviewed: vital signs, nurses dee notes. Consideration of Admission/Observation Escalation of care including admission/observation considered. I considered the following discharge prescriptions or medication management in the emergency department Medications were administered in the Emergency Department. See MAR. Care significantly affected by the following chronic conditions: Diabetes, Hypertension. Counseling: I had a detailed discussion with the patient and/or guardian regarding: the historical points, exam findings, and any diagnostic results supporting the discharge/admit diagnosis, the need for outpatient follow up. Administered Medications: 13:00 Drug: traMADol PO 100 mg Route: PO; mb9 13:02 Follow up: Response: No adverse reaction mb9 13:00 Drug: Amoxicillin-Clavulanate PO 875 mg Route: PO; mb9 13:02 Follow up: Response: No adverse reaction mb9 Disposition Summary: 08/02/22 13:01 Discharge Ordered Location: Home dee Problem: new dee Symptoms: have improved dee Condition: Stable dee Diagnosis - Dental root caries dee - Dental caries, unspecified dee Followup: dee - With: Private Physician - When: 2 - 3 days - Reason: Recheck today's complaints, Continuance of care, Re-evaluation by your physician Followup: dee - With: Manas Brice DDS - When: 2 - 3 days - Reason: Recheck today's complaints, Re-evaluation by your physician Discharge Instructions: - Dental Caries, Adult [facility] - Dental Pain [facility] - Dental Pain, [id number] [facility] - Diet and Dental Disease [facility] - Discharge Summary Sheet mb9 Forms: - Medication Reconciliation Form [facility] - Thank You Letter [facility] - Antibiotic Education [facility] - Prescription Opioid Use [facility] - Work release form mb9 Prescriptions: - Amoxicillin 500 mg Oral Capsule - take 1 capsule by ORAL route every 8 hours for 10 days; 30 tablet; Refills: 0, [facility] Product Selection Permitted - Tramadol 50 mg Oral Tablet - take 2 tablet by ORAL route every 8 hours as needed; 30 tablet; Refills: 0, [facility] Product Selection Permitted Signatures: Jann De La Garza MD MD cha Williams, Irene RN Bettie Zambrano RN RN mb9
--- NOTE | 2022-08-02 13:02 | ER ---
Nurse's Notes [facility] Name: Gabriel Walker Age: 61 yrs Sex: Male : 1960 Arrival Date: 08/02/2022 Time: 11:52 Bed 9 Private MD: Diagnosis: Dental root caries;Dental caries, unspecified Presentation: 08/02 12:06 Chief complaint: Patient states: i have an infection in my tooth on bottom front, it iw hurts to touch my face. Coronavirus screen: At this time, the client does not indicate any symptoms associated with coronavirus-19. Ebola Screen: Patient negative for fever greater than or equal to 101.5 degrees Fahrenheit, and additional compatible Ebola Virus Disease symptoms Patient denies exposure to infectious person. Patient denies travel to an Ebola-affected area in the 21 days before illness onset. No symptoms or risks identified at this time. Initial Sepsis Screen: Does the patient meet any 2 criteria? No. Patient's initial sepsis screen is negative. Does the patient have a suspected source of infection? No. Patient's initial sepsis screen is negative. Risk Assessment: Do you want to hurt yourself or someone else? Patient reports no desire to harm self or others. Onset of symptoms was July 23, 2022. 12:06 Method Of Arrival: Ambulatory iw 12:06 Acuity: PARVIN 4 iw Historical: - Allergies: 12:08 Codeine; "makes nauseous"; iw - Home Meds: 12:08 glipizide 10 mg Oral tab 1 tab once daily [Active]; lisinopril 40 mg Oral tab [Active]; iw Metformin Oral [Active]; - PMHx: 12:08 Diabetes - NIDDM; GERD; Hypertension; iw - PSHx: 12:08 Tonsillectomy; iw - Immunization history:: Adult Immunizations not immunized, . - Social history:: Smoking status: . - Family history:: not pertinent. Screenin:40 [facility] ED Fall Risk Assessment (Adult) History of falling in the last 3 months, mb9 including since admission No falls in past 3 months (0 pts) Confusion or Disorientation No (0 pts) Intoxicated or Sedated No (0 pts) Impaired Gait No (0 pts) Mobility Assist Device Used No (0 pt) Altered Elimination No (0 pt) Score/Fall Risk Level 0 - 2 = Low Risk Oriented to surroundings, Maintained a safe environment, Educated pt \\T\\ family on fall prevention, incl call for assistance when getting out of bed. Abuse screen: Denies injuries from another. Nutritional screening: No deficits noted. Tuberculosis screening: No symptoms or risk factors identified. Assessment: 12:39 General: Appears uncomfortable, Behavior is calm, cooperative, appropriate for age. mb9 Pain: Complains of pain in right side of jaw Pain does not radiate. Pain currently is 10 out of 10 on a pain scale. Quality of pain is described as sharp, shooting, throbbing, Pain began 2-3 days ago. Is continuous, Aggravated by eating, drinking. Neuro: Galvez Agitation-Sedation Scale (RASS): 0 - Alert and Calm Level of Consciousness is awake, alert, obeys commands, Oriented to person, place, time, situation, Appropriate for age. Cardiovascular: Patient's skin is warm and dry. Respiratory: Airway is patent Respiratory effort is even, unlabored, Respiratory pattern is regular, symmetrical. GI: No signs and/or symptoms were reported involving the gastrointestinal system. : No signs and/or symptoms were reported regarding the genitourinary system. EENT: Oral mucosa is dry. Poor dentition noted. Derm: Skin is pink, warm \\T\\ dry. Musculoskeletal: Range of motion: intact in all extremities. 13:02 Reassessment: No changes from previously documented assessment. Patient and/or family mb9 updated on plan of care and expected duration. Pain level reassessed. Patient is alert, oriented x 3, equal unlabored respirations, skin warm/dry/pink. Vital Signs: 12:06 BP 174 / 96; Pulse 91; Resp 16; Temp 98.8; Pulse Ox 97% ; Weight 113.4 kg; Height 6 ft. iw 0 in. ; Pain 10/10; 13:02 BP 165 / 78; Pulse 84; Resp 18; Pulse Ox 100% on R/A; mb9 12:06 Body Mass Index 33.91 (113.40 kg, 182.88 cm) iw 12:06 Pain Scale: Adult iw ED Course: 11:55 Patient arrived in ED. im 12:01 Jann De La Garza MD is Attending Physician. dee 12:08 Triage completed. iw 12:09 Arm band placed on. iw 12:19 Breneman, Angela, RN is Primary Nurse. mb9 12:40 Placed in gown. Bed in low position. Call light in reach. Side rails up X 1. Client mb9 placed on continuous cardiac and pulse oximetry monitoring. NIBP monitoring applied. 12:40 No provider procedures requiring assistance completed. mb9 13:01 Manas Brice DDS is Referral Physician. [facility] 13:01 Patient did not have IV access during this emergency room visit. mb9 Administered Medications: 13:00 Drug: traMADol PO 100 mg Route: PO; mb9 13:02 Follow up: Response: No adverse reaction mb9 13:00 Drug: Amoxicillin-Clavulanate PO 875 mg Route: PO; mb9 13:02 Follow up: Response: No adverse reaction mb9 Medication: 12:40 VIS not applicable for this client. mb9 Outcome: 13:01 Discharge ordered by . [facility] 13:02 Discharged to home ambulatory. mb9 13:02 Condition: stable 13:02 Discharge instructions given to patient, Instructed on discharge instructions, follow up and referral plans. Demonstrated understanding of instructions, follow-up care, medications, Prescriptions given X 2. 13:06 Patient left the ED. mb9 Signatures: Jann De La Garza MD MD cha Williams, Irene, RN Bettie Zambrano, SUZANNA RN mb9 Ashley Cuellar
[2022-08-02] MEDS ORDERED: TRAMADOL HCL 50 MG TAB ONE (13:07)
[2022-08-02] MEDS ORDERED: AMOX/K CLAV 875 MG TAB ONE (13:07)
[2022-08-02 13:12] VITALS: TEMP 98.8
[2022-08-02 13:13] VITALS: BP 165/78; O2SAT 100
== END 2022-08-02 13:06 | disposition home or self-care (01) ==
LOC: ER 11:52
DX: K02.7 Dental root caries (principal)
CPT/HCPCS: 99283

== ENCOUNTER 2023-01-22 16:57 | Emergency (ER) | payer OTHER ==
[2023-01-22] MEDS ORDERED: HYDROMORPHONE HCL 1 MG/ML INJ ONE (17:34)
[2023-01-22] MEDS ORDERED: DIAZEPAM 5 MG TABLET ONE (17:34)
[2023-01-22] MEDS ORDERED: predniSONE 20 MG TAB ONE (17:34)
[2023-01-22] MEDS ORDERED: FAMOTIDINE 20 MG TAB ONE (17:35)
--- NOTE | 2023-01-22 18:30 | RAD REPORT ---
EXAM DESCRIPTION: CT - Spine Lumbar Wo Con - 01/22/2023 5:38 pm CLINICAL HISTORY: Lower back pain;Radiculopathy COMPARISON: No comparisons TECHNIQUE: Axial noncontrast CT imaging of the lumbar spine was performed with coronal and sagittal re-formatted images. All CT scans are performed using dose optimization technique as appropriate and may include automated exposure control or mA/KV adjustment according to patient size. FINDINGS: No acute lumbar spine fracture seen. No aggressive marrow pattern or significant subluxati on. Multilevel spondylolisthesis present, due to variable degrees of disc height loss, endplate, and facet remodeling. Paraspinal tissues are normal in thickness. No paraspinal abscess or hematoma seen. Intervertebral disc disease assessment is inherently limited by CT. Within these limitations, degrees of central canal stenosis are present, most pronounced at L3-4, and to lesser extent at L2-3, second maria isabel to disc osteophyte complexes and ligamentum flavum buckling with mineralization. Variable degrees of bony neural foraminal narrowing, most pronounced at L3-4 on the right. IMPRESSION: No acute osseous abnormality. Multilevel spondylotic changes as above, with degrees of canal stenosis most pronounced at L3-4 and t o lesser extent at L2-3. Please consider MRI follow-up for assessment of disc disease and involvement of the neural structures, as clinically desired.
--- NOTE | 2023-01-22 20:21 | ER ---
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 Coronavirus screen: At this time, the client does not indicate any symptoms associated with coronavirus-19. Ebola Screen: No symptoms or risks identified at this time. Initial Sepsis Screen: Does the patient meet any 2 criteria? No. Patient's initial sepsis screen is negative. Does the patient have a suspected source of infection? No. Patient's initial sepsis screen is negative. Risk Assessment: Do you want to hurt yourself or someone else? Patient reports no desire to harm self or others. Onset of symptoms was January 22, 2023. 17:16 Method Of Arrival: Wheelchair hb 17:16 Acuity: PARVIN 3 hb 17:36 Care prior to arrival: None. Mechanism of Injury: Fall from standing position. Trauma ko1 event details: Injury occurred: January 22, 2023. Trauma Activation: Not Applicable Physician: ED Physician; Name: ; Notified At: ; Arrived At: Physician: General Surgeon; Name: ; Notified At: ; Arrived At: Physician: Radiology; Name: ; Notified At: ; Arrived At: Physician: Respiratory; Name: ; Notified At: ; Arrived At: Physician: Lab; Name: ; Notified At: ; Arrived At: Historical: - Allergies: 17:17 Codeine; hb - Home Meds: 17:17 glipizide 10 mg Oral tab 1 tab once daily [Active]; lisinopril 40 mg Oral tab [Active]; hb Metformin Oral [Active]; - PMHx: 17:17 Diabetes - NIDDM; GERD; Hypertension; hb - PSHx: 17:17 Tonsillectomy; hb - Immunization history:: Adult Immunizations up to date. - Social history:: Smoking status: . - Immunization history: Last tetanus immunization: unknown. Screenin:36 Abuse screen: Denies threats or abuse. Denies injuries from another. Tuberculosis ko1 screening: No symptoms or risk factors identified. 18:08 [facility] ED Fall Risk Assessment (Adult) History of falling in the last 3 months, ko1 including since admission Yes- single mechanical fall (1 pt) Confusion or Disorientation No (0 pts) Intoxicated or Sedated No (0 pts) Impaired Gait No (0 pts) Mobility Assist Device Used No (0 pt) Altered Elimination No (0 pt) Score/Fall Risk Level 0 - 2 = Low Risk Oriented to surroundings, Maintained a safe environment, Educated pt \T\ family on fall prevention, incl call for assistance when getting out of bed, Assessed \T\ reinforced patient's understanding of fall precautions, Provided non-skid footwear, Hourly rounding (assess needs \T\ fall precautionary measures) done, Used ambulatory aids as needed (educated on \T\ assisted with), Used gait belt as appropriate. Nutritional screening: No deficits noted. Primary Survey: 17:36 NO uncontrolled hemorrhage observed. A: The client is awake and alert. The airway is ko1 patent. The client is alert. Airway: patent, Oral cavity: clear, Trachea midline. Breathing/Chest: Spontaneous respiratory effort, equal unlabored respirations, breath sounds clear bilaterally, regular pattern, symmetrical chest rise and fall. Circulation: No external hemorrhage present. Regular and strong central pulse, skin warm/dry/normal color. Disability Pupils are equal, round, reactive to light and accommodation. Client is alert. Exposure/Environment: There is no evidence of uncontrolled external bleeding. Assessment: 17:36 General: Appears distressed, uncomfortable, Behavior is calm, cooperative, appropriate ko1 for age. Pain: Complains of pain in lumbar area, left low back and right low back. 19:20 General: Appears uncomfortable, Behavior is calm, cooperative. Pain: Complains of pain ha1 in low back area and lumbar area and left leg. Neuro: Level of Consciousness is awake, alert, obeys commands, Oriented to person, place, time, situation. Cardiovascular: Capillary refill < 3 seconds Patient's skin is warm and dry. Respiratory: Airway is patent Respiratory effort is even, unlabored, Respiratory pattern is regular, symmetrical. 19:42 Reassessment: Patient appears in no apparent distress at this time. Patient and/or km8 family updated on plan of care and expected duration. Pain level reassessed. Patient is alert, oriented x 3, equal unlabored respirations, skin warm/dry/pink. Neuro: Level of Consciousness is awake, alert, obeys commands, Oriented to person, place, time, situation. Cardiovascular: Denies chest pain, shortness of breath, Capillary refill < 3 seconds Patient's skin is warm and dry. Respiratory: Airway is patent Respiratory effort is even, unlabored, Respiratory pattern is regular, symmetrical. 20:35 Reassessment: Patient appears in no apparent distress at this time. No changes from km8 previously documented assessment. Patient and/or family updated on plan of care and expected duration. Pain level reassessed. Patient is alert, oriented x 3, equal unlabored respirations, skin warm/dry/pink. Vital Signs: 17:16 BP 130 / 65; Pulse 94; Resp 20; Temp 98.3(TE); Pulse Ox 100% on R/A; Weight 115.67 kg; hb Height 6 ft. 1 in. ; Pain 10/10; 18:07 BP 116 / 65; Pulse 90; Resp 18; Pulse Ox 96% ; ko1 19:15 BP 137 / 69; Pulse 80; Resp 16; Pulse Ox 99% on R/A; km8 19:30 BP 149 / 84; Pulse 78; Resp 18; Pulse Ox 98% on R/A; km8 20:00 BP 136 / 76; Pulse 76; Pulse Ox 97% on R/A; km8 17:16 Body Mass Index 33.64 (115.67 kg, 185.42 cm) hb 17:16 Pain Scale: Adult hb [place] Coma Score: 17:36 Eye Response: spontaneous(4). Motor Response: obeys commands(6). Verbal Response: ko1 oriented(5). Total: 15. Trauma Score (Adult): 17:36 Eye Response: spontaneous(1); Verbal Response: oriented(1); Motor Response: obeys ko1 commands(2); Systolic BP: > 89 mm Hg(4); Respiratory Rate: 10 to 29 per min(4); Yuliya Score: 15; Trauma Score: 12 ED Course: 17:00 Patient arrived in ED. im 17:10 Agatha Taylor FNP-C is PHCP. snw 17:10 David Lyon is Attending Physician. snw 17:17 Triage completed. hb 17:34 Yashira Thomas, RN is Primary Nurse. ko1 17:36 Patient has correct armband on for positive identification. Bed in low position. Call ko1 light in reach. Side rails up X2. Patient maintains SpO2 saturation greater than 95% on room air. 17:36 Patient maintains SpO2 saturation greater than 95% on room air. ko1 17:38 CT Lumbar Spine Wo Con In Process Unspecified. EDMS 19:30 Arm band placed on right wrist. km8 20:35 No provider procedures requiring assistance completed. km8 20:36 Patient did not have IV access during this emergency room visit. km8 Administered Medications: 17:26 Drug: HYDROmorphone IM 1 mg IM once Route: IM; Site: right deltoid; ko1 19:38 Follow up: Response: No adverse reaction km8 17:26 Drug: Diazepam PO 10 mg PO once Route: PO; ko1 19:39 Follow up: Response: No adverse reaction km8 17:27 Drug: predniSONE PO 40 mg PO once Route: PO; ko1 19:38 Follow up: Response: No adverse reaction km8 17:27 Drug: Famotidine PO 20 mg PO once Route: PO; ko1 19:38 Follow up: Response: No adverse reaction km8 Medication: 20:38 VIS not applicable for this client. km8 Outcome: 20:20 Discharge ordered by . snw 20:38 Discharged to home via wheelchair, with family, km8 20:38 Condition: good 20:38 Discharge instructions given to patient, Instructed on discharge instructions, follow up and referral plans. medication usage, Demonstrated understanding of instructions, follow-up care, medications, Prescriptions given X 4, 20:39 Patient left the ED. km8 Signatures: Dispatcher [employer] EDMS Agatha Taylor, YAS-C PIG BREEDER-Oralia Sullivan, RN RN Fallon Leyva RN RN ha1 Yashira Thomas, RN RN ko1 Ashley Cuellar Katie, RN RN km8 Corrections: (The following items were deleted from the chart) 18:09 18:07 [facility] ED Fall Risk Assessment (Adult) History of falling in the last 3 months, ko1 including since admission Confusion or Disorientation No (0 pts) ko1
--- NOTE | 2023-01-22 20:21 | EDPHYS ---
Physician Documentation [facility] Name: Gabriel Walker Age: 62 yrs Sex: Male : 1960 Arrival Date: 01/22/2023 Time: 16:57 Bed 3 Private MD: ED Physician David Lyon HPI: 01/22 17:45 This 62 yrs old Male presents to ER via Wheelchair with complaints of Back Injury - snw Fell off golf cart. Historical: - Allergies: 17:17 Codeine; hb - Home Meds: 17:17 glipizide 10 mg Oral tab 1 tab once daily [Active]; lisinopril 40 mg Oral tab [Active]; hb Metformin Oral [Active]; - PMHx: 17:17 Diabetes - NIDDM; GERD; Hypertension; hb - PSHx: 17:17 Tonsillectomy; hb - Immunization history:: Adult Immunizations up to date. - Social history:: Smoking status: . - Immunization history: Last tetanus immunization: unknown. ROS: 17:38 Constitutional: Negative for fever, chills, and weight loss, Eyes: Negative for injury, snw pain, redness, and discharge, ENT: Negative for injury, pain, and discharge, Neck: Negative for injury, pain, and swelling, Cardiovascular: Negative for chest pain, palpitations, and edema, Respiratory: Negative for shortness of breath, cough, wheezing, and pleuritic chest pain, Abdomen/GI: Negative for abdominal pain, nausea, vomiting, diarrhea, and constipation, : Negative for injury, bleeding, discharge, and swelling, Skin: Negative for injury, rash, and discoloration, Neuro: Negative for headache, weakness, numbness, tingling, and seizure, Psych: Negative for depression, anxiety, suicide ideation, homicidal ideation, and hallucinations, 17:38 Back: Positive for decreased range of motion, pain at rest, pain with movement, radiated pain, of the low back area, 17:38 MS/extremity: Positive for decreased range of motion, pain, of the low back area, Exam: 17:37 Constitutional: This is a well developed, well nourished patient who is awake, alert, snw and in no acute distress. Head/Face: Normocephalic, atraumatic. Eyes: Pupils equal round and reactive to light, extra-ocular motions intact. Lids and lashes normal. Conjunctiva and sclera are non-icteric and not injected. Cornea within normal limits. Periorbital areas with no swelling, redness, or edema. ENT: Nares patent. No nasal discharge, no septal abnormalities noted. Tympanic membranes are normal and external auditory canals are clear. Oropharynx with no redness, swelling, or masses, exudates, or evidence of obstruction, uvula midline. Mucous membranes moist. Neck: Trachea midline, no thyromegaly or masses palpated, and no cervical lymphadenopathy. Supple, full range of motion without nuchal rigidity, or vertebral point tenderness. No Meningismus. Chest/axilla: Normal chest wall appearance and motion. Nontender with no deformity. No lesions are appreciated. Cardiovascular: Regular rate and rhythm with a normal S1 and S2. No gallops, murmurs, or rubs. Normal PMI, no JVD. No pulse deficits. Respiratory: Lungs have equal breath sounds bilaterally, clear to auscultation and percussion. No rales, rhonchi or wheezes noted. No increased work of breathing, no retractions or nasal flaring. Abdomen/GI: Soft, non-tender, with normal bowel sounds. No distension or tympany. No guarding or rebound. No evidence of tenderness throughout. Skin: Warm, dry with normal turgor. Normal color with no rashes, no lesions, and no evidence of cellulitis. MS/ Extremity: Pulses equal, no cyanosis. Neurovascular intact. Full, normal range of motion. Neuro: Awake and alert, GCS 15, oriented to person, place, time, and situation. Cranial nerves II-XII grossly intact. Motor strength 5/5 in all extremities. Sensory grossly intact. Cerebellar exam normal. Normal gait. Psych: Awake, alert, with orientation to person, place and time. Behavior, mood, and affect are within normal limits. 17:37 Back: pain, that is moderate, that is severe, ROM is painful, unable to straighten or stand on left leg, vertebral tenderness, is not appreciated, muscle spasm, is appreciated in the low back area, Vital Signs: 17:16 BP 130 / 65; Pulse 94; Resp 20; Temp 98.3(TE); Pulse Ox 100% on R/A; Weight 115.67 kg; hb Height 6 ft. 1 in. ; Pain 10/10; 18:07 BP 116 / 65; Pulse 90; Resp 18; Pulse Ox 96% ; ko1 19:15 BP 137 / 69; Pulse 80; Resp 16; Pulse Ox 99% on R/A; km8 19:30 BP 149 / 84; Pulse 78; Resp 18; Pulse Ox 98% on R/A; km8 20:00 BP 136 / 76; Pulse 76; Pulse Ox 97% on R/A; km8 17:16 Body Mass Index 33.64 (115.67 kg, 185.42 cm) hb 17:16 Pain Scale: Adult hb Yuliya Coma Score: 17:36 Eye Response: spontaneous(4). Motor Response: obeys commands(6). Verbal Response: ko1 oriented(5). Total: 15. Trauma Score (Adult): 17:36 Eye Response: spontaneous(1); Verbal Response: oriented(1); Motor Response: obeys ko1 commands(2); Systolic BP: > 89 mm Hg(4); Respiratory Rate: 10 to 29 per min(4); Yuliya Score: 15; Trauma Score: 12 MDM: 17:12 Patient medically screened. snw 17:45 Differential diagnosis: arthritis, chronic back pain, Fatigue Fracture spinal injury. snw Data reviewed: vital signs, nurses notes. Counseling: I had a detailed discussion with the patient and/or guardian regarding the historical points, exam findings, and any diagnostic results supporting the discharge/admit diagnosis. 20:22 Response to treatment: the patient's symptoms have mildly improved after treatment. ED snw course: able to void, able to walk to w/c from stretcher across ED room. Will release to f/u for MRI, neurosurgery. 01/22 17:17 Order name: CT Lumbar Spine Wo Con; Complete Time: 18:34 snw 01/22 20:20 Order name: Misc. Order: walker; Complete Time: 20:34 snw Administered Medications: 17:26 Drug: HYDROmorphone IM 1 mg IM once Route: IM; Site: right deltoid; ko1 19:38 Follow up: Response: No adverse reaction 17:26 Drug: Diazepam PO 10 mg PO once Route: PO; ko1 19:39 Follow up: Response: No adverse reaction km8 17:27 Drug: predniSONE PO 40 mg PO once Route: PO; ko1 19:38 Follow up: Response: No adverse reaction km8 17:27 Drug: Famotidine PO 20 mg PO once Route: PO; ko1 19:38 Follow up: Response: No adverse reaction km8 Disposition Summary: 01/22/23 20:20 Discharge Ordered Notes: Location: Home snw Condition: Stable snw Diagnosis - Low back pain snw - Radiculopathy, lumbosacral region snw Followup: snw - With: Emergency Department - When: As needed - Reason: Worsening of condition Followup: snw - With: Private Physician - When: 2 - 3 days - Reason: Recheck today's complaints, Continuance of care, Re-evaluation by your physician Discharge Instructions: - Discharge Summary Sheet snw - Lumbosacral Radiculopathy snw - Musculoskeletal Pain snw - How to Use a Walker snw - Rehydration, Adult snw - Heat Therapy snw - Back Injury Prevention snw Forms: - Medication Reconciliation Form snw - Thank You Letter snw - Antibiotic Education snw - Prescription Opioid Use snw - Patient Portal Instructions snw - Leadership Thank You Letter snw Prescriptions: - Tramadol 50 mg Oral tablet - take 1 tablet ORAL route every 8 hours as needed; 12 tablet; Refills: 0, snw Product Selection Permitted - Prednisone 20 mg Oral Tablet - take 2 tablets ORAL route once daily for 5 days; 10 tablet; Refills: 0, Product snw Selection Permitted - orphenadrine citrate 100 mg Oral Tablet Sustained Release - take 1 tablet ORAL route 2 times per day As needed; 20 tablet; Refills: 0, snw Product Selection Permitted - Pepcid 20 mg Oral Tablet - take 1 tablet ORAL route once daily; 20 tablet; Refills: 0, Product Selection snw Permitted Addendum: 01/31/2023 09:43 I reviewed the patient's care provided by the Advanced Practice Provider and agree with remington munoz the diagnosis and treatment plan. Signatures: Dispatcher [employer] Agatha Flannery FNP-C ALUMINUM SIDING APPLICATOR-Csnw Oralia Taylor RN RN Yashira Harris RN RN ko1 David Lyon Katie RN km8 Corrections: (The following items were deleted from the chart) 01/22 20:35 19:34 Bladder Scanner ordered. snw km8
[2023-01-22 20:43] VITALS: TEMP 98.3
[2023-01-22 20:49] VITALS: BP 136/76; O2SAT 97
== END 2023-01-22 20:39 | disposition home or self-care (01) ==
LOC: ER 16:57
DX: M54.50 Low back pain, unspecified (principal); M54.17 Radiculopathy, lumbosacral region; I10 Essential (primary) hypertension; E11.9 Type 2 diabetes mellitus without complications; K21.9 Gastro-esophageal reflux disease without esophagitis; Z79.84 Long term (current) use of oral hypoglycemic drugs
CPT/HCPCS: 72131; 96372; 99284; J7512; J1170

== ENCOUNTER 2024-04-29 09:34 | Emergency (ER) | payer OTHER ==
--- NOTE | 2024-04-29 09:56 | EDPHYS ---
Physician Documentation [facility] Name: Gabriel Walker Age: 63 yrs Sex: Male : 1960 Arrival Date: 04/29/2024 Time: 09:34 Bed 11 Private MD: ED Physician Jeff Jc HPI: 04/29 11:53 This 63 yrs old Male presents to ER via Ambulatory with complaints of dr5 Toothache. 11:53 The patient presents with broken tooth/teeth, pain, redness, swelling. Patient is a dr5 63-year-old male with history of diabetes, GERD, hypertension coming in with multiple dental caries and tooth pain has been going on for 3 days. Patient reports he is not able to see a dentist due to insurance purposes. Patient has been taken ibuprofen at home with no relief.. Historical: - Allergies: 09:46 Codeine; hb - PMHx: 09:46 Diabetes - NIDDM; GERD; Hypertension; hb - PSHx: 09:46 Tonsillectomy; hb - Immunization history:: Adult Immunizations up to date. - Infectious Disease History:: Denies. - Social history:: Smoking status: Patient reports the use of cigarette tobacco products. ROS: 11:53 Constitutional: as per hpi dr5 Exam: 11:53 Constitutional: This is a well developed, well nourished patient who is awake, alert, dr5 and in no acute distress. Head/Face: Normocephalic, atraumatic. Eyes: Pupils equal round and reactive to light, extra-ocular motions intact. Lids and lashes normal. Conjunctiva and sclera are non-icteric and not injected. Cornea within normal limits. Periorbital areas with no swelling, redness, or edema. Neck: Trachea midline, no thyromegaly or masses palpated, and no cervical lymphadenopathy. Supple, full range of motion without nuchal rigidity, or vertebral point tenderness. No Meningismus. Chest/axilla: Normal chest wall appearance and motion. Nontender with no deformity. No lesions are appreciated. Cardiovascular: Regular rate and rhythm with a normal S1 and S2. Normal PMI, no JVD. No pulse deficits. Respiratory: Lungs have equal breath sounds bilaterally, clear to auscultation. No rales, rhonchi or wheezes noted. No increased work of breathing, no retractions or nasal flaring. Back: No spinal tenderness. No costovertebral tenderness. Full range of motion. Skin: Warm, dry with normal turgor. Normal color with no rashes, no lesions, and no evidence of cellulitis. Neuro: Awake and alert, GCS 15, oriented to person, place, time, and situation. Cranial nerves II-XII grossly intact. Motor strength 5/5 in all extremities. Sensory grossly intact. Cerebellar exam normal. Normal gait. 11:53 ENT: Mouth: Gums: normal with healthy appearance, Tongue: is normal, abscess, that is minimal, of the upper right first bicuspid, upper right cuspid, upper right lateral incisor and upper right central incisor, No trismus noted. Patient handling secretions without difficulty. Speaking in full sentences., Vital Signs: 09:45 BP 171 / 91; Pulse 103; Resp 18; Temp 97.9(O); Pulse Ox 100% on R/A; Weight 104.33 kg; hb Height 5 ft. 11 in. ; Pain 10/10; 09:45 Body Mass Index 32.08 (104.33 kg, 180.34 cm) hb 09:45 Pain Scale: Adult hb MDM: 09:48 Medical Screening Exam initiated dr5 11:53 Differential diagnosis: dental caries, gingivitis, dental abscess. Differential dr5 diagnosis: pericoronitis. Data reviewed: vital signs, nurses notes. I considered the following discharge prescriptions or medication management in the emergency department Medications were administered in the Emergency Department. See MAR. Care significantly affected by the following chronic conditions: Diabetes, Hypertension. Care significantly affected by the following Social Determinants of Health: Poor access to healthcare and/or lack of insurance, Poor access to transportation, Inadequate housing, Misuse of alcohol and/or drugs, Problems related to employment. Counseling: I had a detailed discussion with the patient and/or guardian regarding the historical points, exam findings, and any diagnostic results supporting the discharge/admit diagnosis, the presence of at least one elevated blood pressure reading (>120/80) during this emergency department visit, the need for outpatient follow up, for definitive care, a dentist, a family practitioner, to return to the emergency department if symptoms worsen or persist or if there are any questions or concerns that arise at home. Medication response: Augmentin, Tramadol. Response to treatment: the patient's symptoms have markedly improved after treatment. ED course: First dose of Augmentin given in ER with tramadol. Recommended patient follow-up with primary care doctor and dentist this week for further management. Will send patient home with Augmentin. Recommended alternate Tylenol Motrin as needed for pain and take tramadol as needed for breakthrough pain. All questions answered.. Administered Medications: 10:10 Drug: traMADol PO 50 mg PO once Route: PO; hb 10:12 Follow up: Response: Medication administered at discharge. hb 10:11 Drug: Amoxicillin-Clavulanate PO 875 mg PO once Route: PO; hb 10:12 Follow up: Response: Medication administered at discharge. hb Disposition Summary: 04/29/24 09:56 Discharge Ordered Notes: Location: Home dr5 Condition: Stable dr5 Diagnosis - Dental root caries dr5 Followup: dr5 - With: Emergency Department - When: As needed - Reason: Worsening of condition Followup: dr5 - With: Private Physician - When: As needed - Reason: Worsening of condition Discharge Instructions: - Discharge Summary Sheet dr5 - Dental Abscess dr5 Forms: - Medication Reconciliation Form dr5 - Antibiotic Education dr5 - Prescription Opioid Use dr5 - Patient Portal Instructions dr5 - Leadership Thank You Letter dr5 Prescriptions: - Augmentin 875-125 mg Oral Tablet - take 1 tablet ORAL route every 12 hours for 10 days; 20 tablet; Refills: 0, dr5 Product Selection Permitted - Tramadol 50 mg Oral tablet - take 1 tablet ORAL route every 8 hours As needed as needed; 12 tablet; Refills: dr5 0, Product Selection Permitted Signatures: Oralia Taylor, RN RN Agus Parrish, GARYC GROVE SUPERINTENDENT-Cdr5
--- NOTE | 2024-04-29 09:56 | ER ---
Nurse's Notes [facility] Name: Gabriel Walker Age: 63 yrs Sex: Male : 1960 Arrival Date: 04/29/2024 Time: 09:34 Bed 11 Private MD: Diagnosis: Dental root caries Presentation: 04/29 09:45 Chief complaint: Left upper molar pain that radiates to face x 2 days. Coronavirus hb screen: At this time, the client does not indicate any symptoms associated with coronavirus-19. Ebola Screen: No symptoms or risks identified at this time. Initial Sepsis Screen: Does the patient meet any 2 criteria? No. Patient's initial sepsis screen is negative. Does the patient have a suspected source of infection? No. Patient's initial sepsis screen is negative. Risk Assessment: Do you want to hurt yourself or someone else? Patient reports no desire to harm self or others. Onset of symptoms was April 28, 2024. 09:45 Method Of Arrival: Ambulatory hb 09:45 Acuity: PARVIN 4 hb Triage Assessment: 10:12 General: Appears. hb Historical: - Allergies: 09:46 Codeine; hb - PMHx: 09:46 Diabetes - NIDDM; GERD; Hypertension; hb - PSHx: 09:46 Tonsillectomy; hb - Immunization history:: Adult Immunizations up to date. - Infectious Disease History:: Denies. - Social history:: Smoking status: Patient reports the use of cigarette tobacco products. Screenin:11 [facility] ED Fall Risk Assessment (Adult) History of falling in the last 3 months, hb including since admission No falls in past 3 months (0 pts) Confusion or Disorientation No (0 pts) Intoxicated or Sedated No (0 pts) Impaired Gait No (0 pts) Mobility Assist Device Used No (0 pt) Altered Elimination No (0 pt) Score/Fall Risk Level 0 - 2 = Low Risk Oriented to surroundings, Maintained a safe environment, Educated pt \T\ family on fall prevention, incl call for assistance when getting out of bed. Abuse screen: Denies threats or abuse. Denies injuries from another. Nutritional screening: No deficits noted. Tuberculosis screening: No symptoms or risk factors identified. Assessment: 10:11 General: See triage assessment . hb Vital Signs: 09:45 BP 171 / 91; Pulse 103; Resp 18; Temp 97.9(O); Pulse Ox 100% on R/A; Weight 104.33 kg; hb Height 5 ft. 11 in. ; Pain 10; 09:45 Body Mass Index 32.08 (104.33 kg, 180.34 cm) hb 09:45 Pain Scale: Adult hb ED Course: 09:35 Patient arrived in ED. am2 09:46 Triage completed. hb 09:46 Arm band placed on. hb 09:48 Agus Morataya FNP-C [facility]. dr5 09:48 Jeff Jc MD is Attending Physician. dr5 10:11 Patient has correct armband on for positive identification. Provided Education on: hb medications, follow up. 10:11 No provider procedures requiring assistance completed. Patient did not have IV access hb during this emergency room visit. Administered Medications: 10:10 Drug: traMADol PO 50 mg PO once Route: PO; hb 10:12 Follow up: Response: Medication administered at discharge. hb 10:11 Drug: Amoxicillin-Clavulanate PO 875 mg PO once Route: PO; hb 10:12 Follow up: Response: Medication administered at discharge. hb Medication: 10:12 VIS not applicable for this client. hb Outcome: 09:56 Discharge ordered by . dr5 10:13 Patient left the ED. hb Signatures: Oralia Taylor RN RN Zoe Keating am2 Agus Morataya FNP-C FNP-Cdr5 Corrections: (The following items were deleted from the chart) 09:46 09:45 Pulse 103bpm; Resp 18bpm; Pulse Ox 100% RA; Temp 97.9F Oral; 104.33 kg; Height 5 hb ft. 11 in.; BMI: 32.0; Pain 10/10, Adult; hb
[2024-04-29] MEDS ORDERED: AMOX/K CLAV 875 MG TAB ONE (10:08)
[2024-04-29] MEDS ORDERED: TRAMADOL HCL 50 MG TAB ONE (10:08)
[2024-04-29 10:19] VITALS: BP 171/91; TEMP 97.9; O2SAT 100
== END 2024-04-29 10:13 | disposition home or self-care (01) ==
LOC: ER 09:34
DX: K02.7 Dental root caries (principal)
CPT/HCPCS: 99282